=== PATIENT | female | born 1960 | race Caucasian/White ===

== ENCOUNTER 2021-05-07 19:40 | Inpatient (IN) | payer MEDICARE, MEDICAID ==
[~2021-05-07] VITALS: Ht 160 cm; Wt 92.0 kg
[2021-05-07] MEDS ORDERED: MAGNESIUM HYDROXIDE 2,400 MG/30 ML ORAL.SUSP. PO PRN (20:15)
[2021-05-07] MEDS ORDERED: MAG HYDROX/AL HYDROX/SIMETH 30 ML ORAL.SUSP PO PRN (20:15)
[2021-05-07] MEDS ORDERED: METHYL SALICYLATE/MENTHOL TOPICAL OINTMENT 57GM TUBE. TP PRN (20:15)
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
[2021-05-07 21:52] LABS: BASO % 1 % (0-3); EOS % 20 % (0-3); HEMATOCRIT 35.8 % (36.0-47.0); HEMOGLOBIN 11.4 g/dL (12.0-15.5); LYMPH # 0.8 x10^3/uL (1.0-4.8); LYMPH % 17 % (24-48); MEAN CORPUSCULAR HEMOGLOBIN 23 pg (25-35); MEAN CORPUSCULAR HGB CONC 32 g/dL (31-37); MEAN CORPUSCULAR VOLUME 72 fL (79-100); MONO # 0.2 x10^3/uL (0.0-1.1); MONO % 4 % (0-9); NEUT # 2.9 x10^3uL (1.8-7.7); NEUT % 59 % (31-73); PLATELET COUNT 277 x10^3/uL (140-400); RED BLOOD COUNT 4.98 x10^6/uL (3.50-5.40); RED CELL DISTRIBUTION WIDTH 21.7 % (11.5-14.5)
[2021-05-07 22:07] LABS: ALBUMIN 3.4 g/dL (3.4-5.0); ALBUMIN/GLOBULIN RATIO 0.9 (1.0-1.7); CALCIUM 8.3 mg/dL (8.5-10.1); CREATININE 0.7 mg/dL (0.6-1.0); GFR 85.4; MAGNESIUM 2.2 mg/dL (1.8-2.4); POTASSIUM 3.6 mmol/L (3.5-5.1); TOTAL BILIRUBIN 0.2 mg/dL (0.2-1.0); TOTAL PROTEIN 7.1 g/dL (6.4-8.2)
[2021-05-07] MEDS ORDERED: PANT20TA4 PO (22:22)
[2021-05-07] MEDS ORDERED: ZOLP5TAB5 PO (22:22)
[2021-05-07] MEDS ORDERED: TRAZ-125 PO (22:22)
[2021-05-07] MEDS ORDERED: MELO7.5T29 PO (22:22)
[2021-05-07] MEDS ORDERED: SERT100T PO (22:22)
[2021-05-07] MEDS ORDERED: ALEN70TA71 PO (22:22)
[2021-05-07] MEDS ORDERED: TIZA4TAB2 PO (22:22)
[2021-05-07] MEDS ORDERED: ALBU2.5V8 IH (22:22)
[2021-05-07] MEDS ORDERED: MILN50TA PO ×2 (22:22→22:51)
[2021-05-07] MEDS ORDERED: PRAV40TA2 PO (22:22)
[2021-05-07] MEDS ORDERED: ARIP2TAB35 PO (22:22)
[2021-05-07] MEDS ORDERED: GUAI118S36 PO (22:22)
[2021-05-07] MEDS ORDERED: PRAM1.5T7 PO (22:22)
[2021-05-07] MEDS ORDERED: AMLO-187 PO (22:22)
[2021-05-07 22:25] LABS: ANISOCYTOSIS SLIGHT; HYPOCHROMIA SLIGHT; MICROCYTOSIS MOD; OVALOCYTES FEW; PLT ESTIMATE ADEQUATE (ADEQUATE); POLYCHROMASIA SLIGHT
[2021-05-07 22:26] LABS: TEAR DROP CELLS OCC
[2021-05-07 22:32] VITALS: BP 130/76
[2021-05-07] MEDS ORDERED: [UNRECOGNIZED DRUG - OTHER] PO/SL (22:36)
[2021-05-07] MEDS ORDERED: MENT118G TP (22:36)
[2021-05-07] MEDS ORDERED: PEG15DRO4 EACHEYE (22:36)
[2021-05-07] MEDS ORDERED: SODI44SP14 NS (22:36)
[2021-05-07] MEDS ORDERED: MILN100T PO (22:51)
[2021-05-07] MEDS ORDERED: SULF1TAB24 PO (22:51)
[2021-05-07] MEDS ORDERED: guaiFENesin DM 200MG/20MG 10 ML SYRUP PO PRN (23:00)
[2021-05-07] MEDS ORDERED: MILNACIPRAN 50 MG TABLET PO SCH (23:00)
[2021-05-07] MEDS ORDERED: NON FORMULARY ITEM (Menthol (Biofreeze) 1 APP) TP PRN (23:00)
[2021-05-07] MEDS: amLODIPine BESYLATE 10 MG TABLET PO SCH (23:28)
[2021-05-07] MEDS: traZODone 100 MG TABLET. PO SCH (23:28)
[2021-05-07] MEDS: PRAMIPEXOLE 0.5 MG TABLET. PO SCH (23:28)
[2021-05-07] MEDS: ARIPiprazole 2 MG TABLET PO SCH (23:28)
[2021-05-07] MEDS: PANTOPRAZOLE 40 MG TABLET. PO SCH (23:28)
[2021-05-07] MEDS: tiZANidine 4 MG TABLET. PO PRN (23:28)
[2021-05-07] MEDS: ZOLPIDEM 5 MG TABLET. PO PRN (23:28)
[2021-05-07] MEDS: ATORVASTATIN CALCIUM 10 MG TABLET. PO SCH (23:32)
[2021-05-07] MEDS: MELOXICAM 7.5 MG TABLET PO SCH (23:32)
[2021-05-07 23:46] LABS: BILIRUBIN,URINE SMALL (NEG); CLARITY,URINE CLEAR; COLOR,URINE YELLOW; GLUCOSE,URINE NEG (NEG)
[2021-05-07 23:47] LABS: NITRITE,URINE NEG (NEG); UROBILINOGEN,URINE 0.2 mg/dL (0.2 mg/dL)
[2021-05-07 23:48] LABS: BACTERIA,URINE 0 /HPF (0-FEW); RBC,URINE 0 /HPF (0-2); SQUAMOUS EPITHELIAL CELL,UR OCC /LPF; WBC,URINE 0 /HPF (0-4)
--- NOTE | 2021-05-08 00:13 | HP ---
ADMIT DATE: 05/07/2021 PSYCHIATRIC ADMISSION HISTORY/EVALUATION IDENTIFYING DATA: The patient is a 60-year-old female referred to us from [facility]. She presented from home with worsening symptoms of depression, anxiety, failure of self-care. She has had poor intake. She has had active hallucinations about demons including auditory, tactile and possibly visual. She believes that demons are hurting her and she can feel it. She began sleeping in her car to get away from the demons in her apartment, but now they have come into the car. The patient has failed a recent inpatient psychiatric stabilization. Behaviors are deemed dangerous, unmanageable, and she has failed outpatient psychiatric and recent inpatient psychiatric and referred for inpatient psychiatric stabilization to us. The patient seen individually at length evening of 05/07/2021, discussed with nursing staff, reviewed the chart previously discussed with Ursula Quiros, banquet coordinator. CHIEF COMPLAINT: "The demons are poking me with pins. I have been staying in my thought, but they have come over there." The patient was evaluated at the [facility] by the [facility] staff and referred for inpatient psychiatric stabilization. HISTORY OF PRESENT ILLNESS: The patient relayed symptom of depression, feeling hopeless, helpless, worthless, increasingly affecting her overall functioning and self-care. She has had hallucinations as above and states the demons entered through an opening in her apartment and now through a similar opening in her car. She has had sleep and appetite changes. No active suicidal or homicidal ideation. She has got a history of mood swings, but no clear history of bipolar disorder. PAST PSYCHIATRIC HISTORY: As above. MEDICAL HISTORY: Positive for fibromyalgia, back pain, and GERD. DRUG ALLERGIES: Negative. CODE STATUS: Full code. DIET: Regular. Takes medications whole. Ambulates with walker. UA at [facility] on 05/06/2021 was negative. CURRENT PSYCHOTROPICS: Zoloft 150 mg a day, Ambien 5 mg at bedtime p.r.n., Abilify 2 mg a day, trazodone 100 mg at bedtime, Savella 75 mg twice a day, and Mirapex 1.5 mg daily. FAMILY HISTORY: Noncontributory. SOCIAL HISTORY: No alcohol, drug abuse, physical, sexual, or elder abuse history is noted. The patient is not known to be a perpetrator. REACTION TO HOSPITALIZATION: The patient is accepting of it. ASSETS: Stable living outpatient. REVIEW OF SYSTEMS: Positive for significant back pain and she has had multiple back surgeries, ambulation, impaired with walker. No CV, , pulmonary, eye, ENT system symptoms on review. MENTAL STATUS EXAM: The patient was seen individually, evening of 05/07/2021. The patient is oriented to herself and situation and oriented x4. Speech coherent, rapid at times. Abstraction fair. Computation impaired. Language function intact. Attention span short. Mood and affect depressed, anxious. She is quite paranoid, totally fixated on the above hallucinations with very limited insight into this. No active suicidal or homicidal ideation. Attention span is short. IMPRESSION: Major depressive disorder with psychotic features, psychotic disorder, unspecified; anxiety disorder, unspecified. Rest diagnoses as above. PLAN: Admit to geropsychiatry unit at [facility]. I will see the patient daily individually from a psychiatric standpoint, medical followup with Dr. Fuentes/Dr. Laureano. Continue patient on her current psychotropics. Obtain past psychiatric records, get a CT head if not done recently. Continue current psychotropics. Observe baseline, then adjust as clinically indicated. ESTIMATED LENGTH OF STAY: 10-12 days. DISPOSITION: Plans back home with outpatient followup post stabilization. SHARLA/SHAGGY DR: SHARLA/venita TID: [id number]
[2021-05-08 06:22] VITALS: BP 125/66
[2021-05-08] MEDS: PRAMIPEXOLE 0.5 MG TABLET. PO SCH ×3 (08:53→21:20)
[2021-05-08] MEDS: NICOTINE 21MG PATCH. TD SCH (09:00)
[2021-05-08] MEDS ORDERED: MILNACIPRAN 50 MG TABLET PO SCH (09:00)
[2021-05-08] MEDS ORDERED: SERTRALINE 100 MG TABLET. PO SCH (09:00)
--- NOTE | 2021-05-08 10:50 | NUR ---
Lissa has [facility] [place] insurance. Call placed to Kaila at [facility] to obtain authorization. Authorization number is [id number]. Lissa is covered thru 05/11/21 with next concurrent review due on 05/11/21 which can be completed by calling Amauri Arellano at [phone] ext [phone]. Call reference number for today's call is [id number].
--- NOTE | 2021-05-08 11:20 | NUR ---
Patient has been provided with Practical Counseling for tobacco cessation. It included a face to face interaction and the following was discussed: Recognizing danger situations, Developing coping skills,Basic cessation information. Will follow for discharge needs and discharge planning.
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
[2021-05-08 12:08] LABS: THYROXINE 5.8 ug/dL (4.5-12.0)
[2021-05-08] MEDS: MELOXICAM 7.5 MG TABLET PO SCH ×2 (12:17→21:21)
--- NOTE | 2021-05-08 13:21 | NUR ---
Pt A&Ox4, cooperative and pleasant in her interactions. She denies VH/AH/tactile hallucinations at this time, stating "ever since I got here I haven't had them." Earlier in the morning she did call her friend, Sandie, to request that she get in contact with a it quality assurance analyst in order to address the hallucinations/demons. She is compliant with whole medications. At this time she has no questions or complaints at this time. She stays primarily in her room but does come out when she has requests (such as to use the phone). Plan of care continues, will pass to next shift.
--- NOTE | 2021-05-08 15:03 | RAD ---
Exam Date: 05/08/2021 12:[address] HEAD/BRAIN WO Indication: Reason: Establish baseline, current hallucinations / Spl. Instructions: / History: . TECHNIQUE: Head CT was performed without intravenous contrast. One or more of the following dose re duction techniques were utilized: *Automated exposure control (AEC) *Adjustment of mA and/or kV according to patient size *Use of iterative reconstruction technique *CT scan done according to ALARA, or ALARA/IMAGE GENTLY FINDINGS: The ventricles and sulci are normal for the patient's stated age. There is no evidence of acute int racranial hemorrhage, extra-axial collection, mass effect, midline shift, or acute territorial infarc t. No lesion of the skull base or the calvarium is seen. The visualized paranasal sinuses, mastoid ai r cells and orbits are normal in appearance. IMPRESSION: No evidence for acute intracranial abnormality. Electronically signed by: Jose Hui MD (05/08/2021 3:01 PM) [id number]
[2021-05-08 16:00] VITALS: BP 132/81
[2021-05-08 16:45] LABS: THYROID STIM HORMONE (TSH) 1.264 uIU/mL (0.358-3.740)
[2021-05-08] MEDS ORDERED: ATORVASTATIN CALCIUM 10 MG TABLET. PO SCH (21:00)
[2021-05-08] MEDS: tiZANidine 4 MG TABLET. PO PRN (21:20)
[2021-05-08] MEDS: ZOLPIDEM 5 MG TABLET. PO PRN (21:20)
[2021-05-08] MEDS: ARIPiprazole 2 MG TABLET PO SCH (21:20)
[2021-05-08] MEDS: amLODIPine BESYLATE 10 MG TABLET PO SCH (21:20)
[2021-05-08] MEDS: ATORVASTATIN CALCIUM 10 MG TABLET. PO SCH (21:20)
[2021-05-08] MEDS: traZODone 100 MG TABLET. PO SCH (21:20)
[2021-05-08] MEDS: PANTOPRAZOLE 40 MG TABLET. PO SCH (21:20)
--- NOTE | 2021-05-08 22:04 | PDOC ---
Exam Note: Tomas Note: This is late entry for 05/07/2021. Please also refer to the separate dictated note~for this date of service dictated separately.~Patient seen individually. Discussed the patient with Nursing staff reviewed the chart.~Reviewed interim history and current functioning. Reviewed vital signs,~Labs/ Radiology~and curre nt medications noted below. Continue current treatment with the changes noted in the dictated addendum note Assessment: Vital Signs/I&O: Vital Signs Date Time Temp Pulse Resp B/P (MAP) Pulse Ox O2 Delivery O2 Flow Rate FiO2 05/08/21 21:20 97 132/81 05/08/21 16:00 96.4 18 94 Labs: Laboratory Tests Test 05/07/21 22:20 Urine Collection Type Unknown Urine Color Yellow Urine Clarity Clear Urine pH 6.0 Urine Specific [place] 1.025 Urine Protein Neg (NEG-TRACE) Urine Glucose (UA) Neg mg/dL (NEG) Urine Ketones (Stick) Trace mg/dL (NEG) Urine Blood Neg (NEG) Urine Nitrite Neg (NEG) Urine Bilirubin Small (NEG) Urine Urobilinogen Dipstick 0.2 mg/dL (0.2 mg/dL) Urine Leukocyte Esterase Neg (NEG) Urine RBC 0 /HPF (0-2) Urine WBC 0 /HPF (0-4) Urine Squamous Epithelial Cells Occ /LPF Urine Bacteria 0 /HPF (0-FEW) Current Medications: Meds: Current Medications Medications (Trade) Dose Ordered Sig/Noble Route PRN Reason Start Time Stop Time Status Last Admin Dose Admin Nicotine (Nicoderm Cq 21mg Patch) 1 patch DAILY TD 05/08/21 09:00 05/08/21 09:00 Milnacipran HCl (Savella) 50 mg HS PO 05/07/21 23:00 05/08/21 12:09 DC 05/07/21 23:00 Tizanidine HCl (Zanaflex) 4 mg PRN Q8HRS PRN PO MUSCLE SPASMS 05/07/21 23:00 05/08/21 21:20 Milnacipran HCl (Savella) 100 mg DAILY PO 05/08/21 09:00 05/08/21 12:09 DC 05/08/21 08:53 Pantoprazole Sodium (Protonix) 40 mg QHS PO 05/07/21 23:00 05/08/21 21:20 Sertraline HCl (Zoloft) 150 mg DAILY PO 05/08/21 09:00 05/08/21 12:09 DC 05/08/21 08:54 Trazodone HCl (Desyrel) 100 mg HS PO 05/07/21 23:00 05/08/21 21:20 Zolpidem Tartrate (Ambien) 5 mg PRN QHS PRN PO INSOMNIA 05/07/21 23:00 05/08/21 21:20 Pramipexole Dihydrochloride (miraPEX) 1.5 mg TID PO 05/07/21 23:00 05/08/21 21:20 Atorvastatin Calcium (Lipitor) 10 mg QHS PO 05/07/21 23:30 05/08/21 21:20 I have reviewed the current psychotropics carefully including drug interactions. Risk benefit ratio favors no change other than as noted in my dictated progress note. Diagnosis: Problems: (1) Major depressive disorder with psychotic features (2) Psychotic disorder (3) Anxiety disorder, unspecified TESS SPAIN MD May 08, 2021 22:04
--- NOTE | 2021-05-08 22:04 | PDOC ---
Exam Note: Tomas Note: Please also refer to the separate dictated note~for this date of service dictated separately.~Patient seen individually. Discussed the patient with Nursing staff reviewed the chart.~Reviewed interim history and current functioning. Reviewed vital signs,~Labs/ Radiology~and current medications noted below. Continue current treatment with the changes noted in the dictated addendum note Assessment: Vital Signs/I&O: Vital Signs Date Time Temp Pulse Resp B/P (MAP) Pulse Ox O2 Delivery O2 Flow Rate FiO2 05/08/21 21:20 97 132/81 05/08/21 16:00 96.4 18 94 Labs: Laboratory Tests Test 05/07/21 22:20 Urine Collection Type Unknown Urine Color Yellow Urine Clarity Clear Urine pH 6.0 Urine Specific [place] 1.025 Urine Protein Neg (NEG-TRACE) Urine Glucose (UA) Neg mg/dL (NEG) Urine Ketones (Stick) Trace mg/dL (NEG) Urine Blood Neg (NEG) Urine Nitrite Neg (NEG) Urine Bilirubin Small (NEG) Urine Urobilinogen Dipstick 0.2 mg/dL (0.2 mg/dL) Urine Leukocyte Esterase Neg (NEG) Urine RBC 0 /HPF (0-2) Urine WBC 0 /HPF (0-4) Urine Squamous Epithelial Cells Occ /LPF Urine Bacteria 0 /HPF (0-FEW) Current Medications: Meds: Current Medications Medications (Trade) Dose Ordered Sig/Noble Route PRN Reason Start Time Stop Time Status Last Admin Dose Admin Nicotine (Nicoderm Cq 21mg Patch) 1 patch DAILY TD 05/08/21 09:00 05/08/21 09:00 Milnacipran HCl (Savella) 50 mg HS PO 05/07/21 23:00 05/08/21 12:09 DC 05/07/21 23:00 Tizanidine HCl (Zanaflex) 4 mg PRN Q8HRS PRN PO MUSCLE SPASMS 05/07/21 23:00 05/08/21 21:20 Milnacipran HCl (Savella) 100 mg DAILY PO 05/08/21 09:00 05/08/21 12:09 DC 05/08/21 08:53 Pantoprazole Sodium (Protonix) 40 mg QHS PO 05/07/21 23:00 05/08/21 21:20 Sertraline HCl (Zoloft) 150 mg DAILY PO 05/08/21 09:00 05/08/21 12:09 DC 05/08/21 08:54 Trazodone HCl (Desyrel) 100 mg HS PO 05/07/21 23:00 05/08/21 21:20 Zolpidem Tartrate (Ambien) 5 mg PRN QHS PRN PO INSOMNIA 05/07/21 23:00 05/08/21 21:20 Pramipexole Dihydrochloride (miraPEX) 1.5 mg TID PO 05/07/21 23:00 05/08/21 21:20 Atorvastatin Calcium (Lipitor) 10 mg QHS PO 05/07/21 23:30 05/08/21 21:20 I have reviewed the current psychotropics carefully including drug interactions. Risk benefit ratio favors no change other than as noted in my dictated progress note. Diagnosis: Problems: (1) Psychotic disorder (2) Anxiety disorder, unspecified (3) Major depressive disorder with psychotic features TESS SPAIN MD May 08, 2021 22:04
[2021-05-08 23:07] LABS: HEMOGLOBIN A1C 6.5 % (4.8-5.6)
--- NOTE | 2021-05-08 23:25 | NUR ---
Pt sitting in day room, socializing with peers when approached. Pt calm, pleasant, talkative, and appropriate. Pt cooperative with assessment and compliant with medications administered whole. Pt denies all hallucinations and delusions at this time. Pt reports adverse reaction to Cymbalta in the past, Dr. Reinoso notified and new orders received.
[2021-05-09] MEDS: ALBUTEROL SULFATE 8GM INHALER. INH PRN (02:36)
[2021-05-09 05:46] VITALS: BP 150/82
[2021-05-09] MEDS: PRAMIPEXOLE 0.5 MG TABLET. PO SCH ×3 (08:31→20:19)
[2021-05-09] MEDS: NICOTINE 21MG PATCH. TD SCH (08:31)
[2021-05-09] MEDS ORDERED: DULoxetine HCL 30 MG CAPSULE.DR PO SCH (09:00)
[2021-05-09] MEDS: VENLAFAXINE XR 37.5 MG CAP.ER.24H. PO SCH (09:54)
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
[2021-05-09] MEDS: MELOXICAM 7.5 MG TABLET PO SCH (12:33)
[2021-05-09 16:18] VITALS: BP 107/74
[2021-05-09] MEDS: tiZANidine 4 MG TABLET. PO PRN ×2 (16:25→22:34)
[2021-05-09] MEDS ORDERED: CYANOCOBALAMIN (VITAMIN B-12) 1,000 MCG/ML VIAL. IM ONE (18:00)
[2021-05-09] MEDS: FERROUS SULFATE 325 MG TABLET. PO SCH (18:17)
[2021-05-09] MEDS: ASCORBIC ACID 500 MG TABLET PO SCH (18:17)
[2021-05-09] MEDS: ZOLPIDEM 5 MG TABLET. PO PRN (20:20)
[2021-05-09] MEDS: PANTOPRAZOLE 40 MG TABLET. PO SCH (20:20)
[2021-05-09] MEDS: risperiDONE 0.25 MG TABLET. PO SCH (20:20)
[2021-05-09] MEDS: traZODone 100 MG TABLET. PO SCH (20:20)
[2021-05-09] MEDS: amLODIPine BESYLATE 10 MG TABLET PO SCH (20:20)
[2021-05-09] MEDS: ATORVASTATIN CALCIUM 10 MG TABLET. PO SCH (20:20)
--- NOTE | 2021-05-09 22:04 | PDOC ---
Exam Note: Tomas Note: Please also refer to the separate dictated note~for this date of service dictated separately.~Patient seen individually. Discussed the patient with Nursing staff reviewed the chart.~Reviewed interim history and current functioning. Reviewed vital signs,~Labs/ Radiology~and current medications noted below. Continue current treatment with the changes noted in the dictated addendum note Assessment: Vital Signs/I&O: Vital Signs Date Time Temp Pulse Resp B/P (MAP) Pulse Ox O2 Delivery O2 Flow Rate FiO2 05/09/21 20:20 87 107/74 05/09/21 16:18 98.1 18 94 05/09/21 05:46 Room Air I & O 05/08/21 05/08/21 05/09/21 15:00 23:00 07:00 Intake Total 720 ml 360 ml 240 ml Balance 720 ml 360 ml 240 ml Current Medications: Meds: Current Medications Medications (Trade) Dose Ordered Sig/Noble Route PRN Reason Start Time Stop Time Status Last Admin Dose Admin Acetaminophen (Tylenol) 650 mg PRN Q6HRS PRN PO MILD PAIN / TEMP > 100.3'F 05/07/21 20:15 Multi-Ingredient Ointment (Analgesic [place]) 1 corey PRN QID PRN TP MUSCLE PAIN 05/07/21 20:15 Al Hydroxide/Mg Hydroxide (Mylanta Plus Xs) 15 ml PRN AFTMEALHC PRN PO DYSPEPSIA 05/07/21 20:15 Magnesium Hydroxide (Milk Of Magnesia) 2,400 mg PRN QHS PRN PO CONSTIPATION 05/07/21 20:15 Nicotine (Nicoderm Cq 21mg Patch) 1 patch DAILY TD 05/08/21 09:00 05/09/21 08:31 Amlodipine Besylate (Norvasc) 10 mg HS PO 05/07/21 22:00 05/09/21 20:20 Guaifenesin (Robitussin Dm) 10 ml PRN Q4HRS PRN PO COUGH 05/07/21 23:00 Meloxicam (Mobic) 7.5 mg 1200,2100 PO 05/07/21 22:00 05/09/21 17:45 DC 05/09/21 12:33 Milnacipran HCl (Savella) 50 mg HS PO 05/07/21 23:00 05/08/21 12:09 DC 05/07/21 23:00 Sodium Chloride (Saline Mist Nasal) 1 corey PRN BID PRN NS CONGESTION 05/07/21 23:00 Tizanidine HCl (Zanaflex) 4 mg PRN Q8HRS PRN PO MUSCLE SPASMS 05/07/21 23:00 05/09/21 16:25 Alendronate Sodium (Fosamax) 70 mg QSU PO 05/10/21 16:00 Non-Formulary Medication (Menthol (Biofreeze)) 1 corey QID PRN TP MUSCLE PAIN 05/07/21 23:00 05/07/21 23:16 DC Milnacipran HCl (Savella) 100 mg DAILY PO 05/08/21 09:00 05/08/21 12:09 DC 05/08/21 08:53 Pantoprazole Sodium (Protonix) 40 mg QHS PO 05/07/21 23:00 05/09/21 20:20 Artificial Tears (Refresh Classic) 1 drop PRN QID PRN OU DRY EYE 05/07/21 23:15 Atorvastatin Calcium (Lipitor) 10 mg QHS PO 05/08/21 21:00 05/07/21 23:19 DC Aripiprazole (Abilify) 2 mg HS PO 05/07/21 22:00 05/09/21 18:34 DC 05/08/21 21:20 Sertraline HCl (Zoloft) 150 mg DAILY PO 05/08/21 09:00 05/08/21 12:09 DC 05/08/21 08:54 Trazodone HCl (Desyrel) 100 mg HS PO 05/07/21 23:00 05/09/21 20:20 Zolpidem Tartrate (Ambien) 5 mg PRN QHS PRN PO INSOMNIA 05/07/21 23:00 05/09/21 20:20 Pramipexole Dihydrochloride (miraPEX) 1.5 mg TID PO 05/07/21 23:00 05/09/21 20:19 Albuterol Sulfate (Ventolin Hfa Inhaler) 1 puff PRN Q4HRS PRN INH SHORTNESS OF BREATH 05/07/21 23:00 05/09/21 02:36 Atorvastatin Calcium (Lipitor) 10 mg QHS PO 05/07/21 23:30 05/09/21 20:20 Duloxetine HCl (Cymbalta) 30 mg DAILY PO 05/09/21 09:00 05/08/21 21:40 DC Duloxetine HCl (Cymbalta) 60 mg DAILY PO 05/12/21 09:00 05/08/21 21:40 DC Venlafaxine HCl (Effexor Xr) 37.5 mg DAILY PO 05/09/21 09:00 05/09/21 09:54 Cyanocobalamin (Vitamin B-12) 1,000 mcg 1X ONCE IM 05/09/21 18:00 05/09/21 18:01 DC 05/09/21 18:17 Cyanocobalamin (Vitamin B-12) 1,000 mcg Q4WK IM 06/06/21 09:00 Ferrous Sulfate (Feosol) 325 mg BIDWMEALS PO 05/09/21 18:00 05/09/21 18:17 Ascorbic Acid (Vitamin C) 500 mg BIDWMEALS PO 05/09/21 18:00 05/09/21 18:17 Risperidone (RisperDAL) 0.5 mg QHS PO 05/09/21 21:00 05/09/21 20:20 Current Medications Medications (Trade) Dose Ordered Sig/Noble Route PRN Reason Start Time Stop Time Status Last Admin Dose Admin Venlafaxine HCl (Effexor Xr) 37.5 mg DAILY PO 05/09/21 09:00 05/09/21 09:54 Cyanocobalamin (Vitamin B-12) 1,000 mcg 1X ONCE IM 05/09/21 18:00 05/09/21 18:01 DC 05/09/21 18:17 Ferrous Sulfate (Feosol) 325 mg BIDWMEALS PO 05/09/21 18:00 05/09/21 18:17 Ascorbic Acid (Vitamin C) 500 mg BIDWMEALS PO 05/09/21 18:00 05/09/21 18:17 Risperidone (RisperDAL) 0.5 mg QHS PO 05/09/21 21:00 05/09/21 20:20 I have reviewed the current psychotropics carefully including drug interactions. Risk benefit ratio favors no change other than as noted in my dictated progress note. Diagnosis: Problems: (1) Psychotic disorder (2) Anxiety disorder, unspecified (3) Major depressive disorder with psychotic features TESS SPAIN MD May 09, 2021 22:04
[2021-05-09] MEDS: ACETAMINOPHEN 325 MG TABLET PO PRN (22:35)
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
--- NOTE | 2021-05-10 02:55 | CONS ---
DATE OF CONSULTATION: 05/09/2021 HISTORY OF PRESENT ILLNESS: The patient is a 61-year-old female patient who was [facility] from [facility] where she presented from home with worsening symptoms of depression, anxiety, failure self-care. She has had poor intake. She has active hallucination about demons including auditory, tactile and possible visual. She believes that the demons are hurting her and she can feel it. She began sleeping in her car to get away from the demons in her apartment, but now they have come into the car. The patient has failed a recent inpatient psychiatric stabilization. Her behavior seemed to be dangerous, unmanageable and she has failed outpatient psychiatric stabilization; therefore, she was admitted to this unit. PAST MEDICAL HISTORY: Medically, the patient has multiple medical problems including fibromyalgia, back pain, and gastroesophageal reflux disease. She has also osteoporosis, hyperlipidemia, restless leg syndrome. She has generalized osteoarthritis. PAST SURGICAL HISTORY: Unremarkable. ALLERGIES: SHE IS ALLERGIC TO DULOXETINE, GABAPENTIN, AND PREGABALIN. FAMILY HISTORY: Noncontributory. SOCIAL HISTORY: She lives alone. She does not smoke, drink alcohol, or use recreational drugs. MEDICATIONS: He is currently on the following medications: She is on sulfamethoxazole/trimethoprim for Bactrim-DS 1 tablet twice a day, albuterol sulfate 1 puff every 4 hours, tizanidine 4 mg every 8 hours, pravastatin 40 mg at bedtime, amlodipine 10 mg once a day, meloxicam 7.5 mg twice a day, sertraline 150 mg daily, trazodone 100 mg at bedtime, aripiprazole for Abilify 2 mg at bedtime, Ambien 5 mg at bedtime, Mirapex 1.5 mg 3 times a day. She is also on Savella 100 mg daily, and Tussin DM 10 mL every 4 hours. She is on artificial tears 1 drop to both eyes 4 times a day, sodium chloride nasal spray 2 sprays to each nostril twice a day, and Protonix 20 mg once a day. She is also on alendronate 70 mg once a week on Sundays. PHYSICAL EXAMINATION: GENERAL: When I examined her, she looked well and was clearly in no apparent respiratory distress. She was pale, not jaundiced, cyanosis. No lymphadenopathy, no thyromegaly, no jugular venous distention. No lower limb edema. VITAL SIGNS: Her heart rate was 87, blood pressure is 107/74, temperature was 98, respiratory rate was 18, and oxygen saturation was 94%. HEAD, EYES, EARS, NOSE, AND THROAT: Normocephalic, atraumatic. NECK: Supple. HEART: Normal first and second heart sounds. No gallop, rub or murmur. CHEST: Clear to auscultation. No crepitation or rhonchi. ABDOMEN: Distended, soft, nontender. NEUROLOGIC: She was grossly intact. LABORATORY DATA: Showed a white cell count 5000, hemoglobin 11.4, hematocrit 36, MCV 72, and platelet count 277,000 with normal manual differential. Her D-dimer was high at 1.88 mg per liter. Her chemistry showed her serum sodium was 141, potassium 3.6, chloride 105, bicarbonate 27, anion gap of 9, BUN 10, creatinine 0.7. Estimated GFR was 85 mL per minute. Her glucose was 85, calcium was 8.3, magnesium was 2.2. Total bilirubin, AST, ALT, alkaline phosphatase were normal. Total protein 7.1, albumin was 3.4. Her serum iron was low at 33, TIBC was high and iron saturation was low at 10. Her serum triglycerides was 99. Total cholesterol 154, LDL cholesterol was 85, VLDL was 19, HDL cholesterol of 50, and the ratio was 3. Her vitamin B12 was 226 and 25-hydroxy vitamin D was at 24, also low. Her TSH, total T4 and total T3 are all normal. Her urinalysis essentially unremarkable and her anti-Treponema pallidum antibodies are nonreactive. Her CT scan of the head showed ventricles and sulci are normal for the patient's stated age. There is no evidence of acute intracranial hemorrhage, extraaxial collection, mass effect, midline shift or acute territorial infarct. No lesion of the skull base or the calvarium is seen. The visualized paranasal sinuses, mastoid air cells, and orbits are normal in appearance. ASSESSMENT: In summary, this is a 61-year-old female patient who was admitted on account of increasing depression and anxiety, had also active hallucination about demons including auditory and possibly visual. She began sleeping in her car to get away from the demons in her apartment, but now they have come to car. Medically, the patient has multiple medical problems including fibromyalgia, osteoarthritis, osteoporosis, restless leg syndrome, gastroesophageal reflux disease, hypertension, and hyperlipidemia. She has also had lab work showed that she has iron deficiency anemia and vitamin B12 deficiency anemia. PLAN: My plan is to discontinue meloxicam, switch her to Tylenol Arthritis 1000 mg 3 times a day. We will start her on iron, vitamin C, as well as cyanocobalamin 1000 mcg per mL intramuscularly monthly. JAYLIN DR: Nida TID: [id number]
--- NOTE | 2021-05-10 05:04 | NUR ---
Pt has been up all shift, not sleeping, restless, and complaining of nerve pain. Pt reports that she needs her Savella, it's the only thing that helps with her Fibromyalgia pain. Pt educated that Dr. Reinoos discontinued her Savella and Zoloft because the two medications combined could cause hallucinations. Pt adamantly believes that her hallucinations started because she received the Covid-19 vaccine which caused a portal to open in her apartment bringing forth "the demons". Pt was advised that she would be put on the MD list for today to be seen regarding her pain and her request for better pain management. Pt offered several different non-pharmacological interventions but refused stating, "nothing else helps. I need my Savella". Pt finally accepted hot chocolate and a snack before lying down around 0415. Pt currently in her bed and appears to be sleeping.
[2021-05-10 05:36] VITALS: BP 144/83
[2021-05-10] MEDS: VENLAFAXINE XR 37.5 MG CAP.ER.24H. PO SCH (09:00)
[2021-05-10] MEDS: ASCORBIC ACID 500 MG TABLET PO SCH ×2 (09:00→17:30)
[2021-05-10] MEDS: PRAMIPEXOLE 0.5 MG TABLET. PO SCH ×3 (09:00→20:20)
[2021-05-10] MEDS: FERROUS SULFATE 325 MG TABLET. PO SCH ×2 (09:00→17:30)
--- NOTE | 2021-05-10 09:05 | PDOC ---
Exam Note: Tomas Note: This note is a late entry for 05/08/2021 covers elements not covered in my initial note. Subjective: The patient was seen individually in the morning of 05/08/2021 for a treatment team meeting with Ursula Novoa, Talia Garcia (social welfare research worker) and Crissy MAY, discussed and reviewed the chart. Discussed her progress, current psychotropics, reviewed drug interactions, risk-benefit ratio. The patient slept 3-1/2 hours previous night. She remains somewhat withdrawn, depressed. Reportedly the patient has voiced ongoing auditory, visual, and tactile hallucinations. We reviewed history services through the [facility]. CT head completed on 05/08 is unremarkable. Review of Systems: Impaired ambulation. No CV, , pulmonary, eye, ENT system symptoms on review. Gait unsteady. Mental Status Exam: The patient is awake, alert and oriented. Speech is coherent, little pressured at times. Abstraction fair. Computation impaired. Language function intact. Attention span short, somewhat distractible. Denies active suicidal ideation or hallucinations. Laboratory Data: Reviewed. Impression: Major depressive disorder with psychotic features. Psychotic disorder unspecified. Anxiety disorder unspecified. Plan: The patient is on a combination of Zoloft 150 mg a day, Savella 50 mg 1-1/2 tablet twice a day. The combination could be worsening some of her perceived hallucinations and we will stop this and initially thought about changing into Cymbalta but she stated she was unable to tolerate Cymbalta in the past. We will start Effexor XR 37.5 mg a day. Maintain Abilify 2 mg a day but we may need to increase this or change it to Risperdal as an antipsychotic depe nding on her symptoms. We will make further adjustments as clinically indicated. Assessment: Vital Signs/I&O: Vital Signs Date Time Temp Pulse Resp B/P (MAP) Pulse Ox O2 Delivery O2 Flow Rate FiO2 05/10/21 05:36 96.9 82 14 144/83 (103) 94 05/09/21 05:46 Room Air I & O 05/09/21 05/09/21 05/10/21 14:59 22:59 06:59 Intake Total 840 ml 240 ml Balance 840 ml 240 ml Current Medications: Meds: Current Medications Medications (Trade) Dose Ordered Sig/Noble Route PRN Reason Start Time Stop Time Status Last Admin Dose Admin Acetaminophen (Tylenol) 650 mg PRN Q6HRS PRN PO MILD PAIN / TEMP > 100.3'F 05/07/21 20:15 05/09/21 22:35 Multi-Ingredient Ointment (Analgesic [place]) 1 corey PRN QID PRN TP MUSCLE PAIN 05/07/21 20:15 05/09/21 22:35 Al Hydroxide/Mg Hydroxide (Mylanta Plus Xs) 15 ml PRN AFTMEALHC PRN PO DYSPEPSIA 05/07/21 20:15 Magnesium Hydroxide (Milk Of Magnesia) 2,400 mg PRN QHS PRN PO CONSTIPATION 05/07/21 20:15 Nicotine (Nicoderm Cq 21mg Patch) 1 patch DAILY TD 05/08/21 09:00 05/09/21 08:31 Amlodipine Besylate (Norvasc) 10 mg HS PO 05/07/21 22:00 05/09/21 20:20 Guaifenesin (Robitussin Dm) 10 ml PRN Q4HRS PRN PO COUGH 05/07/21 23:00 Meloxicam (Mobic) 7.5 mg 1200,2100 PO 05/07/21 22:00 05/09/21 17:45 DC 05/09/21 12:33 Milnacipran HCl (Savella) 50 mg HS PO 05/07/21 23:00 05/08/21 12:09 DC 05/07/21 23:00 Sodium Chloride (Saline Mist Nasal) 1 corey PRN BID PRN NS CONGESTION 05/07/21 23:00 Tizanidine HCl (Zanaflex) 4 mg PRN Q8HRS PRN PO MUSCLE SPASMS 05/07/21 23:00 05/09/21 22:34 Alendronate Sodium (Fosamax) 70 mg QSU PO 05/10/21 16:00 Non-Formulary Medication (Menthol (Biofreeze)) 1 corey QID PRN TP MUSCLE PAIN 05/07/21 23:00 05/07/21 23:16 DC Milnacipran HCl (Savella) 100 mg DAILY PO 05/08/21 09:00 05/08/21 12:09 DC 05/08/21 08:53 Pantoprazole Sodium (Protonix) 40 mg QHS PO 05/07/21 23:00 05/09/21 20:20 Artificial Tears (Refresh Classic) 1 drop PRN QID PRN OU DRY EYE 05/07/21 23:15 Atorvastatin Calcium (Lipitor) 10 mg QHS PO 05/08/21 21:00 05/07/21 23:19 DC Aripiprazole (Abilify) 2 mg HS PO 05/07/21 22:00 05/09/21 18:34 DC 05/08/21 21:20 Sertraline HCl (Zoloft) 150 mg DAILY PO 05/08/21 09:00 05/08/21 12:09 DC 05/08/21 08:54 Trazodone HCl (Desyrel) 100 mg HS PO 05/07/21 23:00 05/09/21 20:20 Zolpidem Tartrate (Ambien) 5 mg PRN QHS PRN PO INSOMNIA 05/07/21 23:00 05/09/21 20:20 Pramipexole Dihydrochloride (miraPEX) 1.5 mg TID PO 05/07/21 23:00 05/10/21 09:00 Albuterol Sulfate (Ventolin Hfa Inhaler) 1 puff PRN Q4HRS PRN INH SHORTNESS OF BREATH 05/07/21 23:00 05/09/21 02:36 Atorvastatin Calcium (Lipitor) 10 mg QHS PO 05/07/21 23:30 05/09/21 20:20 Duloxetine HCl (Cymbalta) 30 mg DAILY PO 05/09/21 09:00 05/08/21 21:40 DC Duloxetine HCl (Cymbalta) 60 mg DAILY PO 05/12/21 09:00 05/08/21 21:40 DC Venlafaxine HCl (Effexor Xr) 37.5 mg DAILY PO 05/09/21 09:00 05/10/21 09:00 Cyanocobalamin (Vitamin B-12) 1,000 mcg 1X ONCE IM 05/09/21 18:00 05/09/21 18:01 DC 05/09/21 18:17 Cyanocobalamin (Vitamin B-12) 1,000 mcg Q4WK IM 06/06/21 09:00 Ferrous Sulfate (Feosol) 325 mg BIDWMEALS PO 05/09/21 18:00 05/10/21 09:00 Ascorbic Acid (Vitamin C) 500 mg BIDWMEALS PO 05/09/21 18:00 05/10/21 09:00 Risperidone (RisperDAL) 0.5 mg QHS PO 05/09/21 21:00 05/09/21 20:20 Current Medications Medications (Trade) Dose Ordered Sig/Noble Route PRN Reason Start Time Stop Time Status Last Admin Dose Admin Cyanocobalamin (Vitamin B-12) 1,000 mcg 1X ONCE IM 05/09/21 18:00 05/09/21 18:01 DC 05/09/21 18:17 Ferrous Sulfate (Feosol) 325 mg BIDWMEALS PO 05/09/21 18:00 05/10/21 09:00 Ascorbic Acid (Vitamin C) 500 mg BIDWMEALS PO 05/09/21 18:00 05/10/21 09:00 Risperidone (RisperDAL) 0.5 mg QHS PO 05/09/21 21:00 05/09/21 20:20 I have reviewed the current psychotropics carefully including drug interactions. Risk benefit ratio favors no change other than as noted in my dictated progress note. Diagnosis: Problems: (1) Psychotic disorder (2) Anxiety disorder, unspecified (3) Major depressive disorder with psychotic features TESS SPAIN MD May 10, 2021 09:05
[2021-05-10] MEDS: NICOTINE 21MG PATCH. TD SCH (10:25)
[2021-05-10] MEDS: ALENDRONATE SODIUM 35 MG TABLET PO SCH (15:39)
[2021-05-10 16:08] VITALS: BP 135/80
--- NOTE | 2021-05-10 16:38 | NUR ---
Nursing note: Patient in dinning room for morning medications and assessment, medications taken whole. She is A&Ox4, cooperative and pleasant in her interactions. She denies VH/AH/tactile hallucinations at this time, stating "ever since I got here I haven't had them." Patient reported she only has her hallucinations at her apartment or in her car. She stated they are not hallucinations they are real. She voiced she needs to get an exorcist for her apartment, car, & herself. She selectively interacts with peers. She is currently sitting outside. Plan of care continues, will continue to monitor.
[2021-05-10] MEDS ORDERED: traZODone 100 MG TABLET. PO PRN (17:15)
[2021-05-10] MEDS ORDERED: PHENYLEPH/MINERAL OIL/PETROLAT RECTAL OINTMENT TUBE. RC PRN (20:00)
[2021-05-10] MEDS: traZODone 100 MG TABLET. PO SCH (20:19)
[2021-05-10] MEDS: ATORVASTATIN CALCIUM 10 MG TABLET. PO SCH (20:20)
[2021-05-10] MEDS: MIRTAZAPINE 7.5 MG TABLET. PO SCH (20:20)
[2021-05-10] MEDS: PANTOPRAZOLE 40 MG TABLET. PO SCH (20:20)
[2021-05-10] MEDS: risperiDONE 0.25 MG TABLET. PO SCH (20:21)
[2021-05-10] MEDS: amLODIPine BESYLATE 10 MG TABLET PO SCH (20:21)
[2021-05-10] MEDS: oxyCODONE IR 5 MG TABLET PO PRN (21:00)
--- NOTE | 2021-05-10 22:00 | PDOC ---
Exam Note: Tomas Note: Please also refer to the separate dictated note~for this date of service dictated separately.~Patient seen individually. Discussed the patient with Nursing staff reviewed the chart.~Reviewed interim history and current functioning. Reviewed vital signs,~Labs/ Radiology~and current medications noted below. Continue current treatment with the changes noted in the dictated addendum note Assessment: Vital Signs/I&O: Vital Signs Date Time Temp Pulse Resp B/P (MAP) Pulse Ox O2 Delivery O2 Flow Rate FiO2 05/10/21 21:00 94 05/10/21 20:21 88 135/80 05/10/21 16:08 97.8 20 Room Air I & O 05/09/21 05/09/21 05/10/21 15:00 23:00 07:00 Intake Total 840 ml 240 ml Balance 840 ml 240 ml Current Medications: Meds: Current Medications Medications (Trade) Dose Ordered Sig/Noble Route PRN Reason Start Time Stop Time Status Last Admin Dose Admin Acetaminophen (Tylenol) 650 mg PRN Q6HRS PRN PO MILD PAIN / TEMP > 100.3'F 05/07/21 20:15 05/09/21 22:35 Multi-Ingredient Ointment (Analgesic [place]) 1 corey PRN QID PRN TP MUSCLE PAIN 05/07/21 20:15 05/09/21 22:35 Al Hydroxide/Mg Hydroxide (Mylanta Plus Xs) 15 ml PRN AFTMEALHC PRN PO DYSPEPSIA 05/07/21 20:15 Magnesium Hydroxide (Milk Of Magnesia) 2,400 mg PRN QHS PRN PO CONSTIPATION 05/07/21 20:15 Nicotine (Nicoderm Cq 21mg Patch) 1 patch DAILY TD 05/08/21 09:00 05/10/21 10:25 Amlodipine Besylate (Norvasc) 10 mg HS PO 05/07/21 22:00 05/10/21 20:21 Guaifenesin (Robitussin Dm) 10 ml PRN Q4HRS PRN PO COUGH 05/07/21 23:00 Meloxicam (Mobic) 7.5 mg 1200,2100 PO 05/07/21 22:00 05/09/21 17:45 DC 05/09/21 12:33 Milnacipran HCl (Savella) 50 mg HS PO 05/07/21 23:00 05/08/21 12:09 DC 05/07/21 23:00 Sodium Chloride (Saline Mist Nasal) 1 corey PRN BID PRN NS CONGESTION 05/07/21 23:00 Tizanidine HCl (Zanaflex) 4 mg PRN Q8HRS PRN PO MUSCLE SPASMS 05/07/21 23:00 05/09/21 22:34 Alendronate Sodium (Fosamax) 70 mg QSU PO 05/10/21 16:00 05/10/21 15:39 Non-Formulary Medication (Menthol (Biofreeze)) 1 corey QID PRN TP MUSCLE PAIN 05/07/21 23:00 05/07/21 23:16 DC Milnacipran HCl (Savella) 100 mg DAILY PO 05/08/21 09:00 05/08/21 12:09 DC 05/08/21 08:53 Pantoprazole Sodium (Protonix) 40 mg QHS PO 05/07/21 23:00 05/10/21 20:20 Artificial Tears (Refresh Classic) 1 drop PRN QID PRN OU DRY EYE 05/07/21 23:15 Atorvastatin Calcium (Lipitor) 10 mg QHS PO 05/08/21 21:00 05/07/21 23:19 DC Aripiprazole (Abilify) 2 mg HS PO 05/07/21 22:00 05/09/21 18:34 DC 05/08/21 21:20 Sertraline HCl (Zoloft) 150 mg DAILY PO 05/08/21 09:00 05/08/21 12:09 DC 05/08/21 08:54 Trazodone HCl (Desyrel) 100 mg HS PO 05/07/21 23:00 05/10/21 20:19 Zolpidem Tartrate (Ambien) 5 mg PRN QHS PRN PO INSOMNIA 05/07/21 23:00 05/09/21 20:20 Pramipexole Dihydrochloride (miraPEX) 1.5 mg TID PO 05/07/21 23:00 05/10/21 20:20 Albuterol Sulfate (Ventolin Hfa Inhaler) 1 puff PRN Q4HRS PRN INH SHORTNESS OF BREATH 05/07/21 23:00 05/09/21 02:36 Atorvastatin Calcium (Lipitor) 10 mg QHS PO 05/07/21 23:30 05/10/21 20:20 Duloxetine HCl (Cymbalta) 30 mg DAILY PO 05/09/21 09:00 05/08/21 21:40 DC Duloxetine HCl (Cymbalta) 60 mg DAILY PO 05/12/21 09:00 05/08/21 21:40 DC Venlafaxine HCl (Effexor Xr) 37.5 mg DAILY PO 05/09/21 09:00 05/10/21 09:00 Cyanocobalamin (Vitamin B-12) 1,000 mcg 1X ONCE IM 05/09/21 18:00 05/09/21 18:01 DC 05/09/21 18:17 Cyanocobalamin (Vitamin B-12) 1,000 mcg Q4WK IM 06/06/21 09:00 Ferrous Sulfate (Feosol) 325 mg BIDWMEALS PO 05/09/21 18:00 05/10/21 17:30 Ascorbic Acid (Vitamin C) 500 mg BIDWMEALS PO 05/09/21 18:00 05/10/21 17:30 Risperidone (RisperDAL) 0.5 mg QHS PO 05/09/21 21:00 05/10/21 20:21 Mirtazapine (Remeron) 7.5 mg QHS PO 05/10/21 21:00 05/10/21 20:20 Trazodone HCl (Desyrel) 100 mg PRN QHS PRN PO INSOMNIA 05/10/21 17:15 Oxycodone HCl (Roxicodone) 5 mg PRN Q8HRS PRN PO PAIN 05/10/21 20:00 05/10/21 21:00 Phenyleph/Shark Oil/Min Oil/Petrol (Preparation H) 1 corey PRN QID PRN RC RECTAL PAIN 05/10/21 20:00 Current Medications Medications (Trade) Dose Ordered Sig/Noble Route PRN Reason Start Time Stop Time Status Last Admin Dose Admin Alendronate Sodium (Fosamax) 70 mg QSU PO 05/10/21 16:00 05/10/21 15:39 Mirtazapine (Remeron) 7.5 mg QHS PO 05/10/21 21:00 05/10/21 20:20 Oxycodone HCl (Roxicodone) 5 mg PRN Q8HRS PRN PO PAIN 05/10/21 20:00 05/10/21 21:00 I have reviewed the current psychotropics carefully including drug interactions. Risk benefit ratio favors no change other than as noted in my dictated progress note. Diagnosis: Problems: (1) Psychotic disorder (2) Anxiety disorder, unspecified (3) Major depressive disorder with psychotic features TESS SPAIN MD May 10, 2021 22:00
--- NOTE | 2021-05-10 22:48 | NUR ---
Patient is located in the day room on assumption of care, socializing with peers and watching a movie. She is in pleasant spirits, interactive and appropriate. She denies any hallucinations so far this shift. Denies SI/HI. She has voiced no delusions. Complained of restless legs/sciatica pain of 10/10 and requested a PRN. Oxycodone 5mg given to patient at 2100, with good effect. She appears to be sleeping comfortably at present time. Will continue to monitor.
[2021-05-11 05:41] VITALS: BP 129/77
[2021-05-11] MEDS: PRAMIPEXOLE 0.5 MG TABLET. PO SCH ×3 (08:41→20:41)
[2021-05-11] MEDS: VENLAFAXINE XR 37.5 MG CAP.ER.24H. PO SCH (08:41)
[2021-05-11] MEDS: ASCORBIC ACID 500 MG TABLET PO SCH ×2 (08:41→17:22)
[2021-05-11] MEDS: NICOTINE 21MG PATCH. TD SCH (08:41)
[2021-05-11] MEDS: FERROUS SULFATE 325 MG TABLET. PO SCH ×2 (08:41→17:22)
--- NOTE | 2021-05-11 09:12 | PDOC ---
Exam Note: Tomas Note: This note is a late entry for 05/09/2021 covers elements not covered in my initial note. Subjective: The patient was seen individually in the evening of 05/09/2021 with Tenzin MAY, discussed and reviewed the chart. The patient slept 4-3/4 hours previous night. I met with the patient at some length in her room. She is very verbal, talked about the portals not being a problem here but believed she will be a problem once she is back home and in her car. She was unable to tolerate Cymbalta in the past and we have changed it to Effexor XR 37.5 mg a day. Review of Systems: Positive for restless legs. Ambulation impaired with walker. No CV, , pulmonary, eye, ENT system symptoms on review. She does complain of chronic pain and restlessness and pain worsens. Savella was stopped. Mental Status Exam: The patient is reasonably oriented. Speech is hyperverbal. Abstraction fair. Computation impaired. Language function intact. Attention span short. Mood and affect quite animated. No suicidal or homicidal. No active hallucinations. Laboratory Data: Reviewed. Impression: Major depressive disorder with psychotic features. Psychotic disorder unspecified. Anxiety disorder unspecified. Plan: Change Abilify to Risperdal to 0.5 mg h.s. as an antipsychotic. Maintain Effexor 37.5 mg a day. Assessment: Vital Signs/I&O: Vital Signs Date Time Temp Pulse Resp B/P (MAP) Pulse Ox O2 Delivery O2 Flow Rate FiO2 05/11/21 05:41 97.3 95 18 129/77 (94) 93 05/10/21 16:08 Room Air I & O 05/10/21 05/10/21 05/11/21 15:00 23:00 07:00 Intake Total 600 ml 480 ml 120 ml Balance 600 ml 480 ml 120 ml Current Medications: Meds: Current Medications Medications (Trade) Dose Ordered Sig/Noble Route PRN Reason Start Time Stop Time Status Last Admin Dose Admin Acetaminophen (Tylenol) 650 mg PRN Q6HRS PRN PO MILD PAIN / TEMP > 100.3'F 05/07/21 20:15 05/09/21 22:35 Multi-Ingredient Ointment (Analgesic [place]) 1 corey PRN QID PRN TP MUSCLE PAIN 05/07/21 20:15 7/17/21 22:35 Al Hydroxide/Mg Hydroxide (Mylanta Plus Xs) 15 ml PRN AFTMEALHC PRN PO DYSPEPSIA 05/07/21 20:15 Magnesium Hydroxide (Milk Of Magnesia) 2,400 mg PRN QHS PRN PO CONSTIPATION 05/07/21 20:15 Nicotine (Nicoderm Cq 21mg Patch) 1 patch DAILY TD 05/08/21 09:00 05/11/21 08:41 Amlodipine Besylate (Norvasc) 10 mg HS PO 05/07/21 22:00 05/10/21 20:21 Guaifenesin (Robitussin Dm) 10 ml PRN Q4HRS PRN PO COUGH 05/07/21 23:00 Meloxicam (Mobic) 7.5 mg 1200,2100 PO 05/07/21 22:00 05/09/21 17:45 DC 05/09/21 12:33 Milnacipran HCl (Savella) 50 mg HS PO 05/07/21 23:00 05/08/21 12:09 DC 05/07/21 23:00 Sodium Chloride (Saline Mist Nasal) 1 corey PRN BID PRN NS CONGESTION 05/07/21 23:00 Tizanidine HCl (Zanaflex) 4 mg PRN Q8HRS PRN PO MUSCLE SPASMS 05/07/21 23:00 05/09/21 22:34 Alendronate Sodium (Fosamax) 70 mg QSU PO 05/10/21 16:00 05/10/21 15:39 Non-Formulary Medication (Menthol (Biofreeze)) 1 corey QID PRN TP MUSCLE PAIN 05/07/21 23:00 05/07/21 23:16 DC Milnacipran HCl (Savella) 100 mg DAILY PO 05/08/21 09:00 05/08/21 12:09 DC 05/08/21 08:53 Pantoprazole Sodium (Protonix) 40 mg QHS PO 05/07/21 23:00 05/10/21 20:20 Artificial Tears (Refresh Classic) 1 drop PRN QID PRN OU DRY EYE 05/07/21 23:15 Atorvastatin Calcium (Lipitor) 10 mg QHS PO 05/08/21 21:00 05/07/21 23:19 DC Aripiprazole (Abilify) 2 mg HS PO 05/07/21 22:00 05/09/21 18:34 DC 05/08/21 21:20 Sertraline HCl (Zoloft) 150 mg DAILY PO 05/08/21 09:00 05/08/21 12:09 DC 05/08/21 08:54 Trazodone HCl (Desyrel) 100 mg HS PO 05/07/21 23:00 05/10/21 20:19 Zolpidem Tartrate (Ambien) 5 mg PRN QHS PRN PO 2ND CHOICE INSOMNIA 05/07/21 23:00 05/09/21 20:20 Pramipexole Dihydrochloride (miraPEX) 1.5 mg TID PO 05/07/21 23:00 05/11/21 08:41 Albuterol Sulfate (Ventolin Hfa Inhaler) 1 puff PRN Q4HRS PRN INH SHORTNESS OF BREATH 05/07/21 23:00 05/09/21 02:36 Atorvastatin Calcium (Lipitor) 10 mg QHS PO 05/07/21 23:30 05/10/21 20:20 Duloxetine HCl (Cymbalta) 30 mg DAILY PO 05/09/21 09:00 05/08/21 21:40 DC Duloxetine HCl (Cymbalta) 60 mg DAILY PO 05/12/21 09:00 05/08/21 21:40 DC Venlafaxine HCl (Effexor Xr) 37.5 mg DAILY PO 05/09/21 09:00 05/11/21 08:41 Cyanocobalamin (Vitamin B-12) 1,000 mcg 1X ONCE IM 05/09/21 18:00 05/09/21 18:01 DC 05/09/21 18:17 Cyanocobalamin (Vitamin B-12) 1,000 mcg Q4WK IM 06/06/21 09:00 Ferrous Sulfate (Feosol) 325 mg BIDWMEALS PO 05/09/21 18:00 05/11/21 08:41 Ascorbic Acid (Vitamin C) 500 mg BIDWMEALS PO 05/09/21 18:00 05/11/21 08:41 Risperidone (RisperDAL) 0.5 mg QHS PO 05/09/21 21:00 05/10/21 20:21 Mirtazapine (Remeron) 7.5 mg QHS PO 05/10/21 21:00 05/10/21 20:20 Trazodone HCl (Desyrel) 100 mg PRN QHS PRN PO 1ST CHOICE INSOMNIA 05/10/21 17:15 Oxycodone HCl (Roxicodone) 5 mg PRN Q8HRS PRN PO PAIN 05/10/21 20:00 05/10/21 21:00 Phenyleph/Shark Oil/Min Oil/Petrol (Preparation H) 1 corey PRN QID PRN RC RECTAL PAIN 05/10/21 20:00 Current Medications Medications (Trade) Dose Ordered Sig/Noble Route PRN Reason Start Time Stop Time Status Last Admin Dose Admin Alendronate Sodium (Fosamax) 70 mg QSU PO 05/10/21 16:00 05/10/21 15:39 Mirtazapine (Remeron) 7.5 mg QHS PO 05/10/21 21:00 05/10/21 20:20 Oxycodone HCl (Roxicodone) 5 mg PRN Q8HRS PRN PO PAIN 05/10/21 20:00 05/10/21 21:00 I have reviewed the current psychotropics carefully including drug interactions. Risk benefit ratio favors no change other than as noted in my dictated progress note. Diagnosis: Problems: (1) Psychotic disorder (2) Anxiety disorder, unspecified (3) Major depressive disorder with psychotic features TESS SPAIN MD May 11, 2021 09:12
--- NOTE | 2021-05-11 09:39 | PDOC ---
Exam Note: Tomas Note: This note is a late entry for 05/10/2021 covers elements not covered in my initial note. Subjective: patient was seen individually in the evening of 05/10/2021 with Neelam MAY, discussed and reviewed the chart. The patient slept just hours previous night due to pain and symptoms of fibromyalgia. No hallucinations or delusions about the portals. Review of Systems: No CV, , pulmonary, eye, ENT system symptoms on review. She does complain of chronic pain and restlessness and pain worsens. Mental Status Exam: The patient is reasonably oriented. Speech is hyperverbal. Abstraction fair. Computation impaired. Language function intact. Attention span short. Mood and affect quite animated. No suicidal or homicidal. No active hallucinations. Laboratory Data: Reviewed. Impression: Major depressive disorder with psychotic features. Psychotic disorder unspecified. Anxiety disorder unspecified. Plan: Given her ongoing significant insomnia, we will add trazodone 100 mg h.s. p.r.n. insomnia in addition to the scheduled 100 mg dosage. We will also add Re joel 7.5 mg h.s. Rest unchanged for now. Assessment: Vital Signs/I&O: Vital Signs Date Time Temp Pulse Resp B/P (MAP) Pulse Ox O2 Delivery O2 Flow Rate FiO2 05/11/21 05:41 97.3 95 18 129/77 (94) 93 05/10/21 16:08 Room Air I & O 05/10/21 05/10/21 05/11/21 15:00 23:00 07:00 Intake Total 600 ml 480 ml 120 ml Balance 600 ml 480 ml 120 ml Current Medications: Meds: Current Medications Medications (Trade) Dose Ordered Sig/Noble Route PRN Reason Start Time Stop Time Status Last Admin Dose Admin Acetaminophen (Tylenol) 650 mg PRN Q6HRS PRN PO MILD PAIN / TEMP > 100.3'F 05/07/21 20:15 05/09/21 22:35 Multi-Ingredient Ointment (Analgesic [place]) 1 corey PRN QID PRN TP MUSCLE PAIN 05/07/21 20:15 05/09/21 22:35 Al Hydroxide/Mg Hydroxide (Mylanta Plus Xs) 15 ml PRN AFTMEALHC PRN PO DYSPEPSIA 05/07/21 20:15 Magnesium Hydroxide (Milk Of Magnesia) 2,400 mg PRN QHS PRN PO CONSTIPATION 05/07/21 20:15 Nicotine (Nicoderm Cq 21mg Patch) 1 patch DAILY TD 05/08/21 09:00 05/11/21 08:41 Amlodipine Besylate (Norvasc) 10 mg HS PO 05/07/21 22:00 05/10/21 20:21 Guaifenesin (Robitussin Dm) 10 ml PRN Q4HRS PRN PO COUGH 05/07/21 23:00 Meloxicam (Mobic) 7.5 mg 1200,2100 PO 05/07/21 22:00 05/09/21 17:45 DC 05/09/21 12:33 Milnacipran HCl (Savella) 50 mg HS PO 05/07/21 23:00 05/08/21 12:09 DC 05/07/21 23:00 Sodium Chloride (Saline Mist Nasal) 1 corey PRN BID PRN NS CONGESTION 05/07/21 23:00 Tizanidine HCl (Zanaflex) 4 mg PRN Q8HRS PRN PO MUSCLE SPASMS 05/07/21 23:00 05/09/21 22:34 Alendronate Sodium (Fosamax) 70 mg QSU PO 05/10/21 16:00 05/10/21 15:39 Non-Formulary Medication (Menthol (Biofreeze)) 1 corey QID PRN TP MUSCLE PAIN 05/07/21 23:00 05/07/21 23:16 DC Milnacipran HCl (Savella) 100 mg DAILY PO 05/08/21 09:00 05/08/21 12:09 DC 05/08/21 08:53 Pantoprazole Sodium (Protonix) 40 mg QHS PO 05/07/21 23:00 05/10/21 20:20 Artificial Tears (Refresh Classic) 1 drop PRN QID PRN OU DRY EYE 05/07/21 23:15 Atorvastatin Calcium (Lipitor) 10 mg QHS PO 05/08/21 21:00 05/07/21 23:19 DC Aripiprazole (Abilify) 2 mg HS PO 05/07/21 22:00 05/09/21 18:34 DC 05/08/21 21:20 Sertraline HCl (Zoloft) 150 mg DAILY PO 05/08/21 09:00 05/08/21 12:09 DC 05/08/21 08:54 Trazodone HCl (Desyrel) 100 mg HS PO 05/07/21 23:00 05/10/21 20:19 Zolpidem Tartrate (Ambien) 5 mg PRN QHS PRN PO 2ND CHOICE INSOMNIA 05/07/21 23:00 05/09/21 20:20 Pramipexole Dihydrochloride (miraPEX) 1.5 mg TID PO 05/07/21 23:00 05/11/21 08:41 Albuterol Sulfate (Ventolin Hfa Inhaler) 1 puff PRN Q4HRS PRN INH SHORTNESS OF BREATH 05/07/21 23:00 05/09/21 02:36 Atorvastatin Calcium (Lipitor) 10 mg QHS PO 05/07/21 23:30 05/10/21 20:20 Duloxetine HCl (Cymbalta) 30 mg DAILY PO 05/09/21 09:00 05/08/21 21:40 DC Duloxetine HCl (Cymbalta) 60 mg DAILY PO 05/12/21 09:00 05/08/21 21:40 DC Venlafaxine HCl (Effexor Xr) 37.5 mg DAILY PO 05/09/21 09:00 05/11/21 08:41 Cyanocobalamin (Vitamin B-12) 1,000 mcg 1X ONCE IM 05/09/21 18:00 05/09/21 18:01 DC 05/09/21 18:17 Cyanocobalamin (Vitamin B-12) 1,000 mcg Q4WK IM 06/06/21 09:00 Ferrous Sulfate (Feosol) 325 mg BIDWMEALS PO 05/09/21 18:00 05/11/21 08:41 Ascorbic Acid (Vitamin C) 500 mg BIDWMEALS PO 05/09/21 18:00 05/11/21 08:41 Risperidone (RisperDAL) 0.5 mg QHS PO 05/09/21 21:00 05/10/21 20:21 Mirtazapine (Remeron) 7.5 mg QHS PO 05/10/21 21:00 05/10/21 20:20 Trazodone HCl (Desyrel) 100 mg PRN QHS PRN PO 1ST CHOICE INSOMNIA 05/10/21 17:15 Oxycodone HCl (Roxicodone) 5 mg PRN Q8HRS PRN PO PAIN 05/10/21 20:00 05/10/21 21:00 Phenyleph/Shark Oil/Min Oil/Petrol (Preparation H) 1 corey PRN QID PRN RC RECTAL PAIN 05/10/21 20:00 Current Medications Medications (Trade) Dose Ordered Sig/Noble Route PRN Reason Start Time Stop Time Status Last Admin Dose Admin Alendronate Sodium (Fosamax) 70 mg QSU PO 05/10/21 16:00 05/10/21 15:39 Mirtazapine (Remeron) 7.5 mg QHS PO 05/10/21 21:00 05/10/21 20:20 Oxycodone HCl (Roxicodone) 5 mg PRN Q8HRS PRN PO PAIN 05/10/21 20:00 05/10/21 21:00 I have reviewed the current psychotropics carefully including drug interactions. Risk benefit ratio favors no change other than as noted in my dictated progress note. Diagnosis: Problems: (1) Psychotic disorder (2) Anxiety disorder, unspecified (3) Major depressive disorder with psychotic features TESS SPAIN MD May 11, 2021 09:39
[2021-05-11] MEDS: ACETAMINOPHEN 325 MG TABLET PO PRN (11:11)
--- NOTE | 2021-05-11 15:10 | NUR ---
Nursing note: Patient in dinning room for morning medications and assessment, medications taken whole. She is A&Ox4, cooperative and pleasant in her interactions. She denies VH/AH/tactile hallucinations at this time, stating "ever since I got here I haven't had them." Patient reported she only has her hallucinations at her apartment or in her car. She interacts with peers. She is currently sitting in the day room participating in group. Plan of care continues, will continue to monitor.
[2021-05-11 16:13] VITALS: BP 123/66
[2021-05-11] MEDS: traZODone 100 MG TABLET. PO SCH (20:41)
[2021-05-11] MEDS: MIRTAZAPINE 7.5 MG TABLET. PO SCH (20:42)
[2021-05-11] MEDS: amLODIPine BESYLATE 10 MG TABLET PO SCH (20:42)
[2021-05-11] MEDS: PANTOPRAZOLE 40 MG TABLET. PO SCH (20:42)
[2021-05-11] MEDS: risperiDONE 0.25 MG TABLET. PO SCH (20:42)
[2021-05-11] MEDS: ATORVASTATIN CALCIUM 10 MG TABLET. PO SCH (20:42)
[2021-05-11] MEDS: oxyCODONE IR 5 MG TABLET PO PRN (21:45)
--- NOTE | 2021-05-11 21:45 | NUR ---
PRN oxycodone given for generalized pain related to fibromyalgia.
--- NOTE | 2021-05-11 22:06 | PDOC ---
Exam Note: Tomas Note: Please also refer to the separate dictated note~for this date of service dictated separately.~Patient seen individually. Discussed the patient with Nursing staff reviewed the chart.~Reviewed interim history and current functioning. Reviewed vital signs,~Labs/ Radiology~and current medications noted below. Continue current treatment with the changes noted in the dictated addendum note Assessment: Vital Signs/I&O: Vital Signs Date Time Temp Pulse Resp B/P (MAP) Pulse Ox O2 Delivery O2 Flow Rate FiO2 05/11/21 21:45 Room Air 05/11/21 20:42 88 123/66 05/11/21 16:13 97.8 18 94 I & O 05/10/21 05/10/21 05/11/21 15:00 23:00 07:00 Intake Total 600 ml 480 ml 120 ml Balance 600 ml 480 ml 120 ml Current Medications: Meds: Current Medications Medications (Trade) Dose Ordered Sig/Noble Route PRN Reason Start Time Stop Time Status Last Admin Dose Admin Acetaminophen (Tylenol) 650 mg PRN Q6HRS PRN PO MILD PAIN / TEMP > 100.3'F 05/07/21 20:15 05/11/21 11:11 Multi-Ingredient Ointment (Analgesic [place]) 1 corey PRN QID PRN TP MUSCLE PAIN 05/07/21 20:15 05/09/21 22:35 Al Hydroxide/Mg Hydroxide (Mylanta Plus Xs) 15 ml PRN AFTMEALHC PRN PO DYSPEPSIA 05/07/21 20:15 Magnesium Hydroxide (Milk Of Magnesia) 2,400 mg PRN QHS PRN PO CONSTIPATION 05/07/21 20:15 Nicotine (Nicoderm Cq 21mg Patch) 1 patch DAILY TD 05/08/21 09:00 05/11/21 08:41 Amlodipine Besylate (Norvasc) 10 mg HS PO 05/07/21 22:00 05/11/21 20:42 Guaifenesin (Robitussin Dm) 10 ml PRN Q4HRS PRN PO COUGH 05/07/21 23:00 Meloxicam (Mobic) 7.5 mg 1200,2100 PO 05/07/21 22:00 05/09/21 17:45 DC 05/09/21 12:33 Milnacipran HCl (Savella) 50 mg HS PO 05/07/21 23:00 05/08/21 12:09 DC 05/07/21 23:00 Sodium Chloride (Saline Mist Nasal) 1 corey PRN BID PRN NS CONGESTION 05/07/21 23:00 Tizanidine HCl (Zanaflex) 4 mg PRN Q8HRS PRN PO MUSCLE SPASMS 05/07/21 23:00 05/09/21 22:34 Alendronate Sodium (Fosamax) 70 mg QSU PO 05/10/21 16:00 05/10/21 15:39 Non-Formulary Medication (Menthol (Biofreeze)) 1 corey QID PRN TP MUSCLE PAIN 05/07/21 23:00 05/07/21 23:16 DC Milnacipran HCl (Savella) 100 mg DAILY PO 05/08/21 09:00 05/08/21 12:09 DC 05/08/21 08:53 Pantoprazole Sodium (Protonix) 40 mg QHS PO 05/07/21 23:00 05/11/21 20:42 Artificial Tears (Refresh Classic) 1 drop PRN QID PRN OU DRY EYE 05/07/21 23:15 Atorvastatin Calcium (Lipitor) 10 mg QHS PO 05/08/21 21:00 05/07/21 23:19 DC Aripiprazole (Abilify) 2 mg HS PO 05/07/21 22:00 05/09/21 18:34 DC 05/08/21 21:20 Sertraline HCl (Zoloft) 150 mg DAILY PO 05/08/21 09:00 05/08/21 12:09 DC 05/08/21 08:54 Trazodone HCl (Desyrel) 100 mg HS PO 05/07/21 23:00 05/11/21 20:41 Zolpidem Tartrate (Ambien) 5 mg PRN QHS PRN PO 2ND CHOICE INSOMNIA 05/07/21 23:00 05/09/21 20:20 Pramipexole Dihydrochloride (miraPEX) 1.5 mg TID PO 05/07/21 23:00 05/11/21 20:41 Albuterol Sulfate (Ventolin Hfa Inhaler) 1 puff PRN Q4HRS PRN INH SHORTNESS OF BREATH 05/07/21 23:00 05/09/21 02:36 Atorvastatin Calcium (Lipitor) 10 mg QHS PO 05/07/21 23:30 05/11/21 20:42 Duloxetine HCl (Cymbalta) 30 mg DAILY PO 05/09/21 09:00 05/08/21 21:40 DC Duloxetine HCl (Cymbalta) 60 mg DAILY PO 05/12/21 09:00 05/08/21 21:40 DC Venlafaxine HCl (Effexor Xr) 37.5 mg DAILY PO 05/09/21 09:00 05/11/21 08:41 Cyanocobalamin (Vitamin B-12) 1,000 mcg 1X ONCE IM 05/09/21 18:00 05/09/21 18:01 DC 05/09/21 18:17 Cyanocobalamin (Vitamin B-12) 1,000 mcg Q4WK IM 06/06/21 09:00 Ferrous Sulfate (Feosol) 325 mg BIDWMEALS PO 05/09/21 18:00 05/11/21 17:22 Ascorbic Acid (Vitamin C) 500 mg BIDWMEALS PO 05/09/21 18:00 05/11/21 17:22 Risperidone (RisperDAL) 0.5 mg QHS PO 05/09/21 21:00 05/11/21 20:42 Mirtazapine (Remeron) 7.5 mg QHS PO 05/10/21 21:00 05/11/21 20:42 Trazodone HCl (Desyrel) 100 mg PRN QHS PRN PO 1ST CHOICE INSOMNIA 05/10/21 17:15 Oxycodone HCl (Roxicodone) 5 mg PRN Q8HRS PRN PO PAIN 05/10/21 20:00 05/11/21 21:45 Phenyleph/Shark Oil/Min Oil/Petrol (Preparation H) 1 corey PRN QID PRN RC RECTAL PAIN 05/10/21 20:00 I have reviewed the current psychotropics carefully including drug interactions. Risk benefit ratio favors no change other than as noted in my dictated progress note. Diagnosis: Problems: (1) Psychotic disorder (2) Anxiety disorder, unspecified (3) Major depressive disorder with psychotic features TESS SPAIN MD May 11, 2021 22:06
[2021-05-11] MEDS: ZOLPIDEM 5 MG TABLET. PO PRN (22:33)
[2021-05-11] MEDS: tiZANidine 4 MG TABLET. PO PRN (22:33)
--- NOTE | 2021-05-11 22:45 | NUR ---
PRN Ambien and tizanidine given for pain and restlessness that pt says is from her fibromyalgia.
--- NOTE | 2021-05-12 01:00 | NUR ---
Pt has been sleeping since shortly after PRN meds were given.
--- NOTE | 2021-05-12 02:25 | NUR ---
Last evening pt sat in the day room liliya with peers. She was cooperative with staff and took HS meds whole. She denies any hallucinations or delusions and she said that will not happen here "because this used to be a congregation" but that "there is still a portal in my apartment"
[2021-05-12 05:45] VITALS: BP 121/70
[2021-05-12] MEDS: NICOTINE 21MG PATCH. TD SCH (08:16)
[2021-05-12] MEDS: ASCORBIC ACID 500 MG TABLET PO SCH ×2 (08:16→17:35)
[2021-05-12] MEDS: FERROUS SULFATE 325 MG TABLET. PO SCH ×2 (08:16→17:35)
[2021-05-12] MEDS: PRAMIPEXOLE 0.5 MG TABLET. PO SCH ×3 (08:16→20:43)
[2021-05-12] MEDS: VENLAFAXINE XR 37.5 MG CAP.ER.24H. PO SCH (08:16)
[2021-05-12] MEDS ORDERED: DULoxetine HCL 60 MG CAPSULE.DR PO SCH (09:00)
[2021-05-12] MEDS: ALBUTEROL SULFATE 8GM INHALER. INH PRN (09:57)
[2021-05-12] MEDS: SODIUM CHLORIDE 0.65% NASAL SPRAY 45ML BOTTLE. NS PRN ×2 (09:57→21:29)
[2021-05-12] MEDS: POLYVINYL ALCOHOL/POVIDONE/PF OPHTH SOLUTION DROPERETTE. OU PRN (09:57)
--- NOTE | 2021-05-12 12:37 | NUR ---
Nursing note: Patient in dinning room for morning medications and assessment, medications taken whole. She is A&Ox4, cooperative and pleasant in her interactions. She denies VH/AH/tactile hallucinations at this time, stating "ever since I got here I haven't had them." Patient reported she only has her hallucinations at her apartment or in her car. She voiced concern about not being able to go home until she, her apartment & car has an exorcism. She interacts with peers & staff. Patient has a sit on walker she uses to move around unit. She is currently sitting in her room. Plan of care continues, will continue to monitor.
[2021-05-12 15:35] VITALS: BP 136/83
[2021-05-12] MEDS: ACETAMINOPHEN 325 MG TABLET PO PRN (17:36)
[2021-05-12] MEDS: ZOLPIDEM 5 MG TABLET. PO PRN (20:43)
[2021-05-12] MEDS: risperiDONE 0.25 MG TABLET. PO SCH (20:44)
[2021-05-12] MEDS: MIRTAZAPINE 7.5 MG TABLET. PO SCH (20:44)
[2021-05-12] MEDS: amLODIPine BESYLATE 10 MG TABLET PO SCH (20:44)
[2021-05-12] MEDS: PANTOPRAZOLE 40 MG TABLET. PO SCH (20:44)
[2021-05-12] MEDS: traZODone 100 MG TABLET. PO SCH (20:44)
[2021-05-12] MEDS: ATORVASTATIN CALCIUM 10 MG TABLET. PO SCH (20:44)
[2021-05-12] MEDS: tiZANidine 4 MG TABLET. PO PRN (20:44)
[2021-05-12] MEDS: oxyCODONE IR 5 MG TABLET PO PRN (21:29)
--- NOTE | 2021-05-12 21:57 | PDOC ---
Exam Note: Tomas Note: Please also refer to the separate dictated note~for this date of service dictated separately.~Patient seen individually. Discussed the patient with Nursing staff reviewed the chart.~Reviewed interim history and current functioning. Reviewed vital signs,~Labs/ Radiology~and current medications noted below. Continue current treatment with the changes noted in the dictated addendum note Assessment: Vital Signs/I&O: Vital Signs Date Time Temp Pulse Resp B/P (MAP) Pulse Ox O2 Delivery O2 Flow Rate FiO2 05/12/21 20:44 92 136/83 05/12/21 15:35 97.8 18 95 05/11/21 22:35 Room Air I & O 05/11/21 05/11/21 05/12/21 14:59 22:59 06:59 Intake Total 840 ml 720 ml Balance 840 ml 720 ml Current Medications: Meds: Current Medications Medications (Trade) Dose Ordered Sig/Noble Route PRN Reason Start Time Stop Time Status Last Admin Dose Admin Acetaminophen (Tylenol) 650 mg PRN Q6HRS PRN PO MILD PAIN / TEMP > 100.3'F 05/07/21 20:15 05/12/21 17:36 Multi-Ingredient Ointment (Analgesic [place]) 1 corey PRN QID PRN TP MUSCLE PAIN 05/07/21 20:15 05/09/21 22:35 Al Hydroxide/Mg Hydroxide (Mylanta Plus Xs) 15 ml PRN AFTMEALHC PRN PO DYSPEPSIA 05/07/21 20:15 Magnesium Hydroxide (Milk Of Magnesia) 2,400 mg PRN QHS PRN PO CONSTIPATION 05/07/21 20:15 Nicotine (Nicoderm Cq 21mg Patch) 1 patch DAILY TD 05/08/21 09:00 05/12/21 08:16 Amlodipine Besylate (Norvasc) 10 mg HS PO 05/07/21 22:00 05/12/21 20:44 Guaifenesin (Robitussin Dm) 10 ml PRN Q4HRS PRN PO COUGH 05/07/21 23:00 Meloxicam (Mobic) 7.5 mg 1200,2100 PO 05/07/21 22:00 05/09/21 17:45 DC 05/09/21 12:33 Milnacipran HCl (Savella) 50 mg HS PO 05/07/21 23:00 05/08/21 12:09 DC 05/07/21 23:00 Sodium Chloride (Saline Mist Nasal) 1 corey PRN BID PRN NS CONGESTION 05/07/21 23:00 05/12/21 21:29 Tizanidine HCl (Zanaflex) 4 mg PRN Q8HRS PRN PO MUSCLE SPASMS 05/07/21 23:00 05/12/21 20:44 Alendronate Sodium (Fosamax) 70 mg QSU PO 05/10/21 16:00 05/10/21 15:39 Non-Formulary Medication (Menthol (Biofreeze)) 1 corey QID PRN TP MUSCLE PAIN 05/07/21 23:00 05/07/21 23:16 DC Milnacipran HCl (Savella) 100 mg DAILY PO 05/08/21 09:00 05/08/21 12:09 DC 05/08/21 08:53 Pantoprazole Sodium (Protonix) 40 mg QHS PO 05/07/21 23:00 05/12/21 20:44 Artificial Tears (Refresh Classic) 1 drop PRN QID PRN OU DRY EYE 05/07/21 23:15 05/12/21 09:57 Atorvastatin Calcium (Lipitor) 10 mg QHS PO 05/08/21 21:00 05/07/21 23:19 DC Aripiprazole (Abilify) 2 mg HS PO 05/07/21 22:00 05/09/21 18:34 DC 05/08/21 21:20 Sertraline HCl (Zoloft) 150 mg DAILY PO 05/08/21 09:00 05/08/21 12:09 DC 05/08/21 08:54 Trazodone HCl (Desyrel) 100 mg HS PO 05/07/21 23:00 05/12/21 20:44 Zolpidem Tartrate (Ambien) 5 mg PRN QHS PRN PO 2ND CHOICE INSOMNIA 05/07/21 23:00 05/12/21 20:43 Pramipexole Dihydrochloride (miraPEX) 1.5 mg TID PO 05/07/21 23:00 05/12/21 20:43 Albuterol Sulfate (Ventolin Hfa Inhaler) 1 puff PRN Q4HRS PRN INH SHORTNESS OF BREATH 05/07/21 23:00 05/12/21 09:57 Atorvastatin Calcium (Lipitor) 10 mg QHS PO 05/07/21 23:30 05/12/21 20:44 Duloxetine HCl (Cymbalta) 30 mg DAILY PO 05/09/21 09:00 05/08/21 21:40 DC Duloxetine HCl (Cymbalta) 60 mg DAILY PO 05/12/21 09:00 05/08/21 21:40 DC Venlafaxine HCl (Effexor Xr) 37.5 mg DAILY PO 05/09/21 09:00 05/12/21 08:16 Cyanocobalamin (Vitamin B-12) 1,000 mcg 1X ONCE IM 05/09/21 18:00 05/09/21 18:01 DC 05/09/21 18:17 Cyanocobalamin (Vitamin B-12) 1,000 mcg Q4WK IM 06/06/21 09:00 Ferrous Sulfate (Feosol) 325 mg BIDWMEALS PO 05/09/21 18:00 05/12/21 17:35 Ascorbic Acid (Vitamin C) 500 mg BIDWMEALS PO 05/09/21 18:00 05/12/21 17:35 Risperidone (RisperDAL) 0.5 mg QHS PO 05/09/21 21:00 05/12/21 20:44 Mirtazapine (Remeron) 7.5 mg QHS PO 05/10/21 21:00 05/12/21 20:44 Trazodone HCl (Desyrel) 100 mg PRN QHS PRN PO 1ST CHOICE INSOMNIA 05/10/21 17:15 Oxycodone HCl (Roxicodone) 5 mg PRN Q8HRS PRN PO PAIN 05/10/21 20:00 05/12/21 21:29 Phenyleph/Shark Oil/Min Oil/Petrol (Preparation H) 1 corey PRN QID PRN RC RECTAL PAIN 05/10/21 20:00 I have reviewed the current psychotropics carefully including drug interactions. Risk benefit ratio favors no change other than as noted in my dictated progress note. Diagnosis: Problems: (1) Psychotic disorder (2) Anxiety disorder, unspecified (3) Major depressive disorder with psychotic features TESS SPAIN MD May 12, 2021 21:57
--- NOTE | 2021-05-12 23:47 | NUR ---
Pt sitting in day room socializing with peers when approached. Pt calm, interactive, and coherent. Pt has multiple somatic complaints, including c/o head and nasal congestion, back pain, RLS, and sores on lower gum line d/t dentures. Pt requesting "Kanka" for the sores on her gums and a Z-Jorje for sinusitis. Pt placed on MD list to see during AM rounds tomorrow. Pt cooperative with assessment and compliant with medications administered whole. PRN Ambien and Zanaflex administered @2042 with HS medications and PRN Oxycodone and Nasal spray administered at 2128. Pt at times walking around in hallway or day room stomping her feet on the ground because of her RLS.
[2021-05-13 05:19] VITALS: BP 131/82
--- NOTE | 2021-05-13 08:25 | PDOC ---
Exam Note: Tomas Note: This note is a late entry for 05/11/2021 covers elements not covered in my initial note. Subjective: patient was seen individually in the evening of 05/11/2021 with Neelam MAY, discussed and reviewed the chart. The patient slept 5-1/2 hours previous night. Average sleep 3-1/2 hours. She has been attending groups, quite appropriate and denies experiencing any portals here at the hospital. When questioned she initially stated that they are probably still at her home and in the car but as we talked further she was not very definitive about this and indicated that may be they are going away even at those places. This is movement in her psychosis in the right direction. Review of Systems: No CV, , pulmonary, eye, ENT system symptoms on review. Mental Status Exam: The patient is reasonably oriented. She talked at some length about her upbringing and she states her father wanted her to do whatever she wanted in life and that she gave [employer] test and was in the 90th percentile she wanted to join the [employer] and be a executive pilot on one of the space missions but her mother wanted her to get and have children. 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 Speech is hyperverbal. Abstraction fair. Computation impaired. Language function intact. Attention span short. Mood and affect quite animated, appropriate, goal directed in her thinking. No suicidal or homicidal ideation. No active hallucinations. Laboratory Data: Reviewed. Impression: Major depressive disorder with psychotic features. Psychotic disorder unspecified. Anxiety disorder unspecified. Plan: We will continue current psychotropics. If psychotic symptoms, resurfaces we may increase the Risperdal but currently it is at 0.5 mg h.s. Her pain appears to have improved but if she later needs Savella it could be started at low dosages as an outpatient. Assessment: Vital Signs/I&O: Vital Signs Date Time Temp Pulse Resp B/P (MAP) Pulse Ox O2 Delivery O2 Flow Rate FiO2 05/13/21 05:19 98.1 88 20 131/82 (98) 94 Room Air I & O 05/12/21 05/12/21 05/13/21 15:00 23:00 07:00 Intake Total 1540 ml 840 ml Balance 1540 ml 840 ml Current Medications: Meds: Current Medications Medications (Trade) Dose Ordered Sig/Noble Route PRN Reason Start Time Stop Time Status Last Admin Dose Admin Acetaminophen (Tylenol) 650 mg PRN Q6HRS PRN PO MILD PAIN / TEMP > 100.3'F 05/07/21 20:15 05/12/21 17:36 Multi-Ingredient Ointment (Analgesic [place]) 1 corey PRN QID PRN TP MUSCLE PAIN 05/07/21 20:15 05/09/21 22:35 Al Hydroxide/Mg Hydroxide (Mylanta Plus Xs) 15 ml PRN AFTMEALHC PRN PO DYSPEPSIA 05/07/21 20:15 Magnesium Hydroxide (Milk Of Magnesia) 2,400 mg PRN QHS PRN PO CONSTIPATION 05/07/21 20:15 Nicotine (Nicoderm Cq 21mg Patch) 1 patch DAILY TD 05/08/21 09:00 05/12/21 08:16 Amlodipine Besylate (Norvasc) 10 mg HS PO 05/07/21 22:00 05/12/21 20:44 Guaifenesin (Robitussin Dm) 10 ml PRN Q4HRS PRN PO COUGH 05/07/21 23:00 Meloxicam (Mobic) 7.5 mg 1200,2100 PO 05/07/21 22:00 05/09/21 17:45 DC 05/09/21 12:33 Milnacipran HCl (Savella) 50 mg HS PO 05/07/21 23:00 05/08/21 12:09 DC 05/07/21 23:00 Sodium Chloride (Saline Mist Nasal) 1 corey PRN BID PRN NS CONGESTION 05/07/21 23:00 05/12/21 21:29 Tizanidine HCl (Zanaflex) 4 mg PRN Q8HRS PRN PO MUSCLE SPASMS 05/07/21 23:00 05/12/21 20:44 Alendronate Sodium (Fosamax) 70 mg QSU PO 05/10/21 16:00 05/10/21 15:39 Non-Formulary Medication (Menthol (Biofreeze)) 1 corey QID PRN TP MUSCLE PAIN 05/07/21 23:00 05/07/21 23:16 DC Milnacipran HCl (Savella) 100 mg DAILY PO 05/08/21 09:00 05/08/21 12:09 DC 05/08/21 08:53 Pantoprazole Sodium (Protonix) 40 mg QHS PO 05/07/21 23:00 05/12/21 20:44 Artificial Tears (Refresh Classic) 1 drop PRN QID PRN OU DRY EYE 05/07/21 23:15 05/12/21 09:57 Atorvastatin Calcium (Lipitor) 10 mg QHS PO 05/08/21 21:00 05/07/21 23:19 DC Aripiprazole (Abilify) 2 mg HS PO 05/07/21 22:00 05/09/21 18:34 DC 05/08/21 21:20 Sertraline HCl (Zoloft) 150 mg DAILY PO 05/08/21 09:00 05/08/21 12:09 DC 05/08/21 08:54 Trazodone HCl (Desyrel) 100 mg HS PO 05/07/21 23:00 05/12/21 20:44 Zolpidem Tartrate (Ambien) 5 mg PRN QHS PRN PO 2ND CHOICE INSOMNIA 05/07/21 23:00 05/12/21 20:43 Pramipexole Dihydrochloride (miraPEX) 1.5 mg TID PO 05/07/21 23:00 05/12/21 20:43 Albuterol Sulfate (Ventolin Hfa Inhaler) 1 puff PRN Q4HRS PRN INH SHORTNESS OF BREATH 05/07/21 23:00 05/12/21 09:57 Atorvastatin Calcium (Lipitor) 10 mg QHS PO 05/07/21 23:30 05/12/21 20:44 Duloxetine HCl (Cymbalta) 30 mg DAILY PO 05/09/21 09:00 05/08/21 21:40 DC Duloxetine HCl (Cymbalta) 60 mg DAILY PO 05/12/21 09:00 05/08/21 21:40 DC Venlafaxine HCl (Effexor Xr) 37.5 mg DAILY PO 05/09/21 09:00 05/12/21 08:16 Cyanocobalamin (Vitamin B-12) 1,000 mcg 1X ONCE IM 05/09/21 18:00 05/09/21 18:01 DC 05/09/21 18:17 Cyanocobalamin (Vitamin B-12) 1,000 mcg Q4WK IM 06/06/21 09:00 Ferrous Sulfate (Feosol) 325 mg BIDWMEALS PO 05/09/21 18:00 05/12/21 17:35 Ascorbic Acid (Vitamin C) 500 mg BIDWMEALS PO 05/09/21 18:00 05/12/21 17:35 Risperidone (RisperDAL) 0.5 mg QHS PO 05/09/21 21:00 05/12/21 20:44 Mirtazapine (Remeron) 7.5 mg QHS PO 05/10/21 21:00 05/12/21 20:44 Trazodone HCl (Desyrel) 100 mg PRN QHS PRN PO 1ST CHOICE INSOMNIA 05/10/21 17:15 Oxycodone HCl (Roxicodone) 5 mg PRN Q8HRS PRN PO PAIN 05/10/21 20:00 05/12/21 21:29 Phenyleph/Shark Oil/Min Oil/Petrol (Preparation H) 1 corey PRN QID PRN RC RECTAL PAIN 05/10/21 20:00 I have reviewed the current psychotropics carefully including drug interactions. Risk benefit ratio favors no change other than as noted in my dictated progress note. Diagnosis: Problems: (1) Psychotic disorder (2) Anxiety disorder, unspecified (3) Major depressive disorder with psychotic features TESS SPAIN MD May 13, 2021 08:25
[2021-05-13] MEDS: POLYVINYL ALCOHOL/POVIDONE/PF OPHTH SOLUTION DROPERETTE. OU PRN ×2 (08:28→20:17)
[2021-05-13] MEDS: SODIUM CHLORIDE 0.65% NASAL SPRAY 45ML BOTTLE. NS PRN (08:34)
[2021-05-13] MEDS: FERROUS SULFATE 325 MG TABLET. PO SCH ×2 (08:34→17:30)
[2021-05-13] MEDS: ASCORBIC ACID 500 MG TABLET PO SCH ×2 (08:34→17:30)
[2021-05-13] MEDS: PRAMIPEXOLE 0.5 MG TABLET. PO SCH ×3 (08:34→20:18)
[2021-05-13] MEDS: VENLAFAXINE XR 37.5 MG CAP.ER.24H. PO SCH (08:39)
[2021-05-13] MEDS: NICOTINE 21MG PATCH. TD SCH (08:39)
[2021-05-13] MEDS: ALBUTEROL SULFATE 8GM INHALER. INH PRN ×2 (08:43→20:17)
--- NOTE | 2021-05-13 08:53 | PDOC ---
Exam Note: Tomas Note: This note is a late entry for 05/12/2021 covers elements not covered in my initial note. Subjective: patient was seen individually in the evening of 05/12/2021 with Neelam MAY, discussed and reviewed the chart. The patient slept 6 hours previous night. No delusions noted though she feels there are still portals at her home and in the car. She is tearful at times. Review of Systems: Ambulation impaired with walker. No CV, , pulmonary, eye, ENT system symptoms on review. Mental Status Exam: The patient is reasonably oriented. As I met with her individually she was braiding her hair and doing a good job at it. Speech is hyperverbal. Abstraction fair. Computation impaired. Language function intact. Attention span short. Mood and affect quite animated, appropriate. No suicidal or homicidal ideation. No active hallucinations. Laboratory Data: Reviewed. Impression: Major depressive disorder with psychotic features. Psychotic disorder unspecified. Anxiety disorder unspecified. Plan: We will continue current psychotropics. Assessment: Vital Signs/I&O: Vital Signs Date Time Temp Pulse Resp B/P (MAP) Pulse Ox O2 Delivery O2 Flow Rate FiO2 05/13/21 05:19 98.1 88 20 131/82 (98) 94 Room Air I & O 05/12/21 05/12/21 05/13/21 14:59 22:59 06:59 Intake Total 1540 ml 840 ml Balance 1540 ml 840 ml Current Medications: Meds: Current Medications Medications (Trade) Dose Ordered Sig/Noble Route PRN Reason Start Time Stop Time Status Last Admin Dose Admin Acetaminophen (Tylenol) 650 mg PRN Q6HRS PRN PO MILD PAIN / TEMP > 100.3'F 05/07/21 20:15 05/12/21 17:36 Multi-Ingredient Ointment (Analgesic [place]) 1 corey PRN QID PRN TP MUSCLE PAIN 05/07/21 20:15 05/09/21 22:35 Al Hydroxide/Mg Hydroxide (Mylanta Plus Xs) 15 ml PRN AFTMEALHC PRN PO DYSPEPSIA 05/07/21 20:15 Magnesium Hydroxide (Milk Of Magnesia) 2,400 mg PRN QHS PRN PO CONSTIPATION 05/07/21 20:15 Nicotine (Nicoderm Cq 21mg Patch) 1 patch DAILY TD 05/08/21 09:00 05/13/21 08:39 Amlodipine Besylate (Norvasc) 10 mg HS PO 05/07/21 22:00 05/12/21 20:44 Guaifenesin (Robitussin Dm) 10 ml PRN Q4HRS PRN PO COUGH 05/07/21 23:00 Meloxicam (Mobic) 7.5 mg 1200,2100 PO 05/07/21 22:00 05/09/21 17:45 DC 05/09/21 12:33 Milnacipran HCl (Savella) 50 mg HS PO 05/07/21 23:00 05/08/21 12:09 DC 05/07/21 23:00 Sodium Chloride (Saline Mist Nasal) 1 corey PRN BID PRN NS CONGESTION 05/07/21 23:00 05/13/21 08:34 Tizanidine HCl (Zanaflex) 4 mg PRN Q8HRS PRN PO MUSCLE SPASMS 05/07/21 23:00 05/12/21 20:44 Alendronate Sodium (Fosamax) 70 mg QSU PO 05/10/21 16:00 05/10/21 15:39 Non-Formulary Medication (Menthol (Biofreeze)) 1 corey QID PRN TP MUSCLE PAIN 05/07/21 23:00 05/07/21 23:16 DC Milnacipran HCl (Savella) 100 mg DAILY PO 05/08/21 09:00 05/08/21 12:09 DC 05/08/21 08:53 Pantoprazole Sodium (Protonix) 40 mg QHS PO 05/07/21 23:00 05/12/21 20:44 Artificial Tears (Refresh Classic) 1 drop PRN QID PRN OU DRY EYE 05/07/21 23:15 05/13/21 08:28 Atorvastatin Calcium (Lipitor) 10 mg QHS PO 05/08/21 21:00 05/07/21 23:19 DC Aripiprazole (Abilify) 2 mg HS PO 05/07/21 22:00 05/09/21 18:34 DC 05/08/21 21:20 Sertraline HCl (Zoloft) 150 mg DAILY PO 05/08/21 09:00 05/08/21 12:09 DC 05/08/21 08:54 Trazodone HCl (Desyrel) 100 mg HS PO 05/07/21 23:00 05/12/21 20:44 Zolpidem Tartrate (Ambien) 5 mg PRN QHS PRN PO 2ND CHOICE INSOMNIA 05/07/21 23:00 05/12/21 20:43 Pramipexole Dihydrochloride (miraPEX) 1.5 mg TID PO 05/07/21 23:00 05/13/21 08:34 Albuterol Sulfate (Ventolin Hfa Inhaler) 1 puff PRN Q4HRS PRN INH SHORTNESS OF BREATH 05/07/21 23:00 05/13/21 08:43 Atorvastatin Calcium (Lipitor) 10 mg QHS PO 05/07/21 23:30 05/12/21 20:44 Duloxetine HCl (Cymbalta) 30 mg DAILY PO 05/09/21 09:00 05/08/21 21:40 DC Duloxetine HCl (Cymbalta) 60 mg DAILY PO 05/12/21 09:00 05/08/21 21:40 DC Venlafaxine HCl (Effexor Xr) 37.5 mg DAILY PO 05/09/21 09:00 05/13/21 08:39 Cyanocobalamin (Vitamin B-12) 1,000 mcg 1X ONCE IM 05/09/21 18:00 05/09/21 18:01 DC 05/09/21 18:17 Cyanocobalamin (Vitamin B-12) 1,000 mcg Q4WK IM 06/06/21 09:00 Ferrous Sulfate (Feosol) 325 mg BIDWMEALS PO 05/09/21 18:00 05/13/21 08:34 Ascorbic Acid (Vitamin C) 500 mg BIDWMEALS PO 05/09/21 18:00 05/13/21 08:34 Risperidone (RisperDAL) 0.5 mg QHS PO 05/09/21 21:00 05/12/21 20:44 Mirtazapine (Remeron) 7.5 mg QHS PO 05/10/21 21:00 05/12/21 20:44 Trazodone HCl (Desyrel) 100 mg PRN QHS PRN PO 1ST CHOICE INSOMNIA 05/10/21 17:15 Oxycodone HCl (Roxicodone) 5 mg PRN Q8HRS PRN PO PAIN 05/10/21 20:00 05/12/21 21:29 Phenyleph/Shark Oil/Min Oil/Petrol (Preparation H) 1 corey PRN QID PRN RC RECTAL PAIN 05/10/21 20:00 I have reviewed the current psychotropics carefully including drug interactions. Risk benefit ratio favors no change other than as noted in my dictated progress note. Diagnosis: Problems: (1) Psychotic disorder (2) Anxiety disorder, unspecified (3) Major depressive disorder with psychotic features TESS SPAIN MD May 13, 2021 08:53
[2021-05-13] MEDS: ACETAMINOPHEN 325 MG TABLET PO PRN (09:30)
--- NOTE | 2021-05-13 14:26 | NUR ---
Nursing note: Patient in dinning room for morning medications and assessment, medications taken whole. She is A&Ox4, cooperative and pleasant in her interactions. She denies VH/AH/tactile hallucinations at this time, stating "ever since I got here I haven't had them." Patient reported she only has her hallucinations at her apartment or in her car. She voiced concern about not being able to go home until she, her apartment & car has an exorcism. She has been c/o pain not relieved by Tylenol, requesting Savella which is not ordered. She is also c/o lower right gums pain from her dentures. She interacts with peers & staff. Patient has a sit on walker she uses to move around unit. She is currently sitting in day room. Plan of care continues, will continue to monitor.
--- NOTE | 2021-05-13 14:53 | NUR ---
SW completed review for [facility] via phone and on a recorded line. KRISTA will wait to hear back from Silvina, insurance underwriter sales, on the review decision for denial or continued stay.
[2021-05-13 15:46] VITALS: BP 109/67
[2021-05-13] MEDS: amLODIPine BESYLATE 10 MG TABLET PO SCH (20:19)
[2021-05-13] MEDS: MIRTAZAPINE 7.5 MG TABLET. PO SCH (20:19)
[2021-05-13] MEDS: risperiDONE 0.25 MG TABLET. PO SCH (20:19)
[2021-05-13] MEDS: PANTOPRAZOLE 40 MG TABLET. PO SCH (20:19)
[2021-05-13] MEDS: ATORVASTATIN CALCIUM 10 MG TABLET. PO SCH (20:19)
[2021-05-13] MEDS: traZODone 100 MG TABLET. PO SCH (20:19)
[2021-05-13] MEDS: ZOLPIDEM 5 MG TABLET. PO PRN (20:19)
[2021-05-13] MEDS: tiZANidine 4 MG TABLET. PO PRN (20:19)
[2021-05-13] MEDS: oxyCODONE IR 5 MG TABLET PO PRN (20:20)
--- NOTE | 2021-05-13 22:25 | PDOC ---
Exam Note: Tomas Note: Please also refer to the separate dictated note~for this date of service dictated separately.~Patient seen individually. Discussed the patient with Nursing staff reviewed the chart.~Reviewed interim history and current functioning. Reviewed vital signs,~Labs/ Radiology~and current medications noted below. Continue current treatment with the changes noted in the dictated addendum note Assessment: Vital Signs/I&O: Vital Signs Date Time Temp Pulse Resp B/P (MAP) Pulse Ox O2 Delivery O2 Flow Rate FiO2 05/13/21 20:50 94 05/13/21 20:19 95 109/67 05/13/21 15:46 98.2 18 05/13/21 05:19 Room Air I & O 05/12/21 05/12/21 05/13/21 15:00 23:00 07:00 Intake Total 1540 ml 840 ml Balance 1540 ml 840 ml Current Medications: Meds: Current Medications Medications (Trade) Dose Ordered Sig/Noble Route PRN Reason Start Time Stop Time Status Last Admin Dose Admin Acetaminophen (Tylenol) 650 mg PRN Q6HRS PRN PO MILD PAIN / TEMP > 100.3'F 05/07/21 20:15 05/13/21 09:30 Multi-Ingredient Ointment (Analgesic [place]) 1 corey PRN QID PRN TP MUSCLE PAIN 05/07/21 20:15 05/09/21 22:35 Al Hydroxide/Mg Hydroxide (Mylanta Plus Xs) 15 ml PRN AFTMEALHC PRN PO DYSPEPSIA 05/07/21 20:15 Magnesium Hydroxide (Milk Of Magnesia) 2,400 mg PRN QHS PRN PO CONSTIPATION 05/07/21 20:15 Nicotine (Nicoderm Cq 21mg Patch) 1 patch DAILY TD 05/08/21 09:00 05/13/21 08:39 Amlodipine Besylate (Norvasc) 10 mg HS PO 05/07/21 22:00 05/13/21 20:19 Guaifenesin (Robitussin Dm) 10 ml PRN Q4HRS PRN PO COUGH 05/07/21 23:00 Meloxicam (Mobic) 7.5 mg 1200,2100 PO 05/07/21 22:00 05/09/21 17:45 DC 05/09/21 12:33 Milnacipran HCl (Savella) 50 mg HS PO 05/07/21 23:00 05/08/21 12:09 DC 05/07/21 23:00 Sodium Chloride (Saline Mist Nasal) 1 corey PRN BID PRN NS CONGESTION 05/07/21 23:00 05/13/21 08:34 Tizanidine HCl (Zanaflex) 4 mg PRN Q8HRS PRN PO MUSCLE SPASMS 05/07/21 23:00 05/13/21 20:19 Alendronate Sodium (Fosamax) 70 mg QSU PO 05/10/21 16:00 05/10/21 15:39 Non-Formulary Medication (Menthol (Biofreeze)) 1 corey QID PRN TP MUSCLE PAIN 05/07/21 23:00 05/07/21 23:16 DC Milnacipran HCl (Savella) 100 mg DAILY PO 05/08/21 09:00 05/08/21 12:09 DC 05/08/21 08:53 Pantoprazole Sodium (Protonix) 40 mg QHS PO 05/07/21 23:00 05/13/21 20:19 Artificial Tears (Refresh Classic) 1 drop PRN QID PRN OU DRY EYE 05/07/21 23:15 05/13/21 20:17 Atorvastatin Calcium (Lipitor) 10 mg QHS PO 05/08/21 21:00 05/07/21 23:19 DC Aripiprazole (Abilify) 2 mg HS PO 05/07/21 22:00 05/09/21 18:34 DC 05/08/21 21:20 Sertraline HCl (Zoloft) 150 mg DAILY PO 05/08/21 09:00 05/08/21 12:09 DC 05/08/21 08:54 Trazodone HCl (Desyrel) 100 mg HS PO 05/07/21 23:00 05/13/21 20:19 Zolpidem Tartrate (Ambien) 5 mg PRN QHS PRN PO 2ND CHOICE INSOMNIA 05/07/21 23:00 05/13/21 20:19 Pramipexole Dihydrochloride (miraPEX) 1.5 mg TID PO 05/07/21 23:00 05/13/21 20:18 Albuterol Sulfate (Ventolin Hfa Inhaler) 1 puff PRN Q4HRS PRN INH SHORTNESS OF BREATH 05/07/21 23:00 05/13/21 20:17 Atorvastatin Calcium (Lipitor) 10 mg QHS PO 05/07/21 23:30 05/13/21 20:19 Duloxetine HCl (Cymbalta) 30 mg DAILY PO 05/09/21 09:00 05/08/21 21:40 DC Duloxetine HCl (Cymbalta) 60 mg DAILY PO 05/12/21 09:00 05/08/21 21:40 DC Venlafaxine HCl (Effexor Xr) 37.5 mg DAILY PO 05/09/21 09:00 05/13/21 08:39 Cyanocobalamin (Vitamin B-12) 1,000 mcg 1X ONCE IM 05/09/21 18:00 05/09/21 18:01 DC 05/09/21 18:17 Cyanocobalamin (Vitamin B-12) 1,000 mcg Q4WK IM 06/06/21 09:00 Ferrous Sulfate (Feosol) 325 mg BIDWMEALS PO 05/09/21 18:00 05/13/21 17:30 Ascorbic Acid (Vitamin C) 500 mg BIDWMEALS PO 05/09/21 18:00 05/13/21 17:30 Risperidone (RisperDAL) 0.5 mg QHS PO 05/09/21 21:00 05/13/21 20:19 Mirtazapine (Remeron) 7.5 mg QHS PO 05/10/21 21:00 05/13/21 20:19 Trazodone HCl (Desyrel) 100 mg PRN QHS PRN PO 1ST CHOICE INSOMNIA 05/10/21 17:15 Oxycodone HCl (Roxicodone) 5 mg PRN Q8HRS PRN PO PAIN 05/10/21 20:00 05/13/21 20:20 Phenyleph/Shark Oil/Min Oil/Petrol (Preparation H) 1 corey PRN QID PRN RC RECTAL PAIN 05/10/21 20:00 I have reviewed the current psychotropics carefully including drug interactions. Risk benefit ratio favors no change other than as noted in my dictated progress note. Diagnosis: Problems: (1) Psychotic disorder (2) Anxiety disorder, unspecified (3) Major depressive disorder with psychotic features TESS SPAIN MD May 13, 2021 22:25
--- NOTE | 2021-05-13 23:07 | NUR ---
Pt sitting in day room when approached. Pt calm, interactive, and social with staff and peers. Pt cooperative with assessment and compliant with medications administered whole. Pt c/o pain "all over" and states "this is the worst it's been since I got here". Pt asking for her Savella and states "Dr. Reinoso said he was going to put me back on it. He said he's gonna start me back on a low dose of it". I advised pt that Dr. Reinoso had not communicated this to the nursing staff nor had he given an order to restart the Savella. PRN Oxycodone, Zanaflex, Refresh gtts, Albuterol MDI, and Ambien administered at HS as requested by pt.
[2021-05-14 05:50] VITALS: BP 113/71
[2021-05-14 06:07] LABS: BASO # 0.3 x10^3/uL (0.0-0.2); BASO % 3 % (0-3); EOS # 0.5 x10^3/uL (0.0-0.7); EOS % 7 % (0-3); HEMATOCRIT 34.6 % (36.0-47.0); HEMOGLOBIN 10.8 g/dL (12.0-15.5); LYMPH # 1.6 x10^3/uL (1.0-4.8); LYMPH % 21 % (24-48); MEAN CORPUSCULAR HEMOGLOBIN 23 pg (25-35); MEAN CORPUSCULAR HGB CONC 31 g/dL (31-37); MEAN CORPUSCULAR VOLUME 74 fL (79-100); MONO # 0.7 x10^3/uL (0.0-1.1); MONO % 9 % (0-9); NEUT # 4.5 x10^3uL (1.8-7.7); NEUT % 60 % (31-73); PLATELET COUNT 257 x10^3/uL (140-400); RED CELL DISTRIBUTION WIDTH 22.3 % (11.5-14.5); WHITE BLOOD COUNT 7.6 x10^3/uL (4.0-11.0)
[2021-05-14 06:23] LABS: ALBUMIN 2.8 g/dL (3.4-5.0); ALBUMIN/GLOBULIN RATIO 0.8 (1.0-1.7); CALCIUM 8.2 mg/dL (8.5-10.1); CREATININE 0.7 mg/dL (0.6-1.0); GFR 85.1; POTASSIUM 4.3 mmol/L (3.5-5.1); TOTAL BILIRUBIN 0.2 mg/dL (0.2-1.0); TOTAL PROTEIN 6.1 g/dL (6.4-8.2)
[2021-05-14] MEDS: FERROUS SULFATE 325 MG TABLET. PO SCH ×2 (08:38→17:26)
[2021-05-14] MEDS: ASCORBIC ACID 500 MG TABLET PO SCH ×2 (08:38→17:27)
[2021-05-14] MEDS: VENLAFAXINE XR 37.5 MG CAP.ER.24H. PO SCH (08:38)
[2021-05-14] MEDS: PRAMIPEXOLE 0.5 MG TABLET. PO SCH ×3 (08:38→20:33)
[2021-05-14] MEDS: POLYVINYL ALCOHOL/POVIDONE/PF OPHTH SOLUTION DROPERETTE. OU PRN ×2 (08:38→20:32)
[2021-05-14] MEDS: SODIUM CHLORIDE 0.65% NASAL SPRAY 45ML BOTTLE. NS PRN ×2 (08:39→20:31)
[2021-05-14] MEDS: NICOTINE 21MG PATCH. TD SCH (08:39)
[2021-05-14] MEDS: ALBUTEROL SULFATE 8GM INHALER. INH PRN ×2 (08:39→20:31)
[2021-05-14] MEDS: ACETAMINOPHEN 325 MG TABLET PO PRN (10:04)
--- NOTE | 2021-05-14 10:45 | NUR ---
Treatment team note: Pt is eating 100% of meals and sleeping 4.5 hours per night. Pt is pleasant and cooperative, generally denying any HI/SI and denying hallucinations or delusions. Pt feels that since she has been admitted to the hospital they have lessened, believing that because the hospital is an old jehovah's witness the portals aren't here like they are in her home and car. Pt has participated in 6 groups this week with moderate to full participation. Pt believes that her friend has scheduled an exorcism to rid of the portals from her home which makes her feel better. Pt will re-start Savaella 25mg daily and the Risperdal to 0.75mg daily. Pt will return home and have services with the local mental health facility; KRISTA to finalize these plans.
[2021-05-14] MEDS: MILNACIPRAN 50 MG TABLET PO SCH (12:00)
--- NOTE | 2021-05-14 12:15 | NUR ---
WEEKLY ACTIVITY THERAPY NOTE Date of Admission: 05/07/21 Date of AT Assessment: 05/08 Precipitating behaviors that initiated intake and admission: Pt fearful, anxious, self care failure with poor intake; reports there are demons in her apartment, Tactile/VH, thinks demons are poking her with pins and that they will do her in; she has been afraid to be in her apartment and has been staying in her car. Goal aimed: increase stress management and relaxation skills Initial Goal:Pt will participate in at least five individual or group Activity Therapy sessions per week Weekly progress towards goal:achieved, 03/28 Group participation level: 1 min, 2 mod, 3 full Weekly highlights: country music bingo Tuesday, carson video and card game Tuesday, patio and gospel music Tuesday Behaviors observed: social and pleasant, calm and compliant Plan: change goal to: Pt will participate in all Activity Therapy groups offered. Beneficial adaptations: socialization and engagement
--- NOTE | 2021-05-14 14:05 | NUR ---
KRISTA contacted [facility] and was transferred to talk to Brian but ended up speaking to Jacki. Jacki reports that pt came in through the crisis center but does not have any services available to her yet. KRISTA was instructed to contact Favian Santos at to get those services set up.
--- NOTE | 2021-05-14 14:19 | NUR ---
SW returned call to Mitra Cool telephone sales representative and left a message to let her know that pt does not have any services. Pt came to the mental health facility through their crisis center. An intake was taken but no services were actually set up as pt wound up as inpt for a few weeks. KRISTA will wait to hear back from Silvina re: insurance denial or approval for continued stay.
[2021-05-14 15:54] VITALS: BP 150/53
--- NOTE | 2021-05-14 17:05 | NUR ---
Nursing note: Patient in dinning room for morning medications and assessment, medications taken whole. She is A&Ox4, cooperative and pleasant in her interactions. She denies VH/AH/tactile hallucinations at this time, stating "ever since I got here I haven't had them." Patient reported she only has her hallucinations at her apartment or in her car. She voiced concern about not being able to go home until she, her apartment & car has an exorcism. She is also c/o lower right gums pain from her dentures. She interacts with peers & staff. Patient has a sit on walker she uses to move around unit. She is currently in dinning room. Plan of care continues, will continue to monitor.
[2021-05-14] MEDS: traZODone 100 MG TABLET. PO SCH (20:32)
[2021-05-14] MEDS: risperiDONE 0.25 MG TABLET. PO SCH (20:33)
[2021-05-14] MEDS: PANTOPRAZOLE 40 MG TABLET. PO SCH (20:33)
[2021-05-14] MEDS: ZOLPIDEM 5 MG TABLET. PO PRN (20:33)
[2021-05-14] MEDS: MIRTAZAPINE 7.5 MG TABLET. PO SCH (20:33)
[2021-05-14] MEDS: tiZANidine 4 MG TABLET. PO PRN (20:33)
[2021-05-14] MEDS: ATORVASTATIN CALCIUM 10 MG TABLET. PO SCH (20:34)
[2021-05-14] MEDS: amLODIPine BESYLATE 10 MG TABLET PO SCH (20:34)
[2021-05-14] MEDS: oxyCODONE IR 5 MG TABLET PO PRN (21:44)
--- NOTE | 2021-05-14 22:03 | PDOC ---
Exam Note: Tomas Note: Please also refer to the separate dictated note~for this date of service dictated separately.~Patient seen individually. Discussed the patient with Nursing staff reviewed the chart.~Reviewed interim history and current functioning. Reviewed vital signs,~Labs/ Radiology~and current medications noted below. Continue current treatment with the changes noted in the dictated addendum note Assessment: Vital Signs/I&O: Vital Signs Date Time Temp Pulse Resp B/P (MAP) Pulse Ox O2 Delivery O2 Flow Rate FiO2 05/14/21 20:34 99 150/53 05/14/21 15:54 97.8 18 95 05/13/21 05:19 Room Air I & O 05/13/21 05/13/21 05/14/21 15:00 23:00 07:00 Intake Total 600 ml 360 ml 360 ml Balance 600 ml 360 ml 360 ml Labs: Laboratory Tests Test 05/14/21 05:48 White Blood Count 7.6 x10^3/uL (4.0-11.0) Red Blood Count 4.70 x10^6/uL (3.50-5.40) Hemoglobin 10.8 g/dL (12.0-15.5) L Hematocrit 34.6 % (36.0-47.0) L Mean Corpuscular Volume 74 fL (79-100) L Mean Corpuscular Hemoglobin 23 pg (25-35) L Mean Corpuscular Hemoglobin Concent 31 g/dL (31-37) Red Cell Distribution Width 22.3 % (11.5-14.5) H Platelet Count 257 x10^3/uL (140-400) Neutrophils (%) (Auto) 60 % (31-73) Lymphocytes (%) (Auto) 21 % (24-48) L Monocytes (%) (Auto) 9 % (0-9) Eosinophils (%) (Auto) 7 % (0-3) H Basophils (%) (Auto) 3 % (0-3) Neutrophils # (Auto) 4.5 x10^3uL (1.8-7.7) Lymphocytes # (Auto) 1.6 x10^3/uL (1.0-4.8) Monocytes # (Auto) 0.7 x10^3/uL (0.0-1.1) Eosinophils # (Auto) 0.5 x10^3/uL (0.0-0.7) Basophils # (Auto) 0.3 x10^3/uL (0.0-0.2) H Sodium Level 144 mmol/L (136-145) Potassium Level 4.3 mmol/L (3.5-5.1) Chloride Level 105 mmol/L (98-107) Carbon Dioxide Level 34 mmol/L (21-32) H Anion Gap 5 (6-14) L Blood Urea Nitrogen 10 mg/dL (7-20) Creatinine 0.7 mg/dL (0.6-1.0) Estimated GFR (Cockcroft-Gault) 85.1 BUN/Creatinine Ratio 14 (6-20) Glucose Level 102 mg/dL (70-99) H Calcium Level 8.2 mg/dL (8.5-10.1) L Total Bilirubin 0.2 mg/dL (0.2-1.0) Aspartate Amino Transferase (AST) 18 U/L (15-37) Alanine Aminotransferase (ALT) 24 U/L (14-59) Alkaline Phosphatase 85 U/L (46-116) Total Protein 6.1 g/dL (6.4-8.2) L Albumin 2.8 g/dL (3.4-5.0) L Albumin/Globulin Ratio 0.8 (1.0-1.7) L Current Medications: Meds: Laboratory Tests Test 05/14/21 05:48 White Blood Count 7.6 x10^3/uL Red Blood Count 4.70 x10^6/uL Hemoglobin 10.8 g/dL Hematocrit 34.6 % Mean Corpuscular Volume 74 fL Mean Corpuscular Hemoglobin 23 pg Mean Corpuscular Hemoglobin Concent 31 g/dL Red Cell Distribution Width 22.3 % Platelet Count 257 x10^3/uL Neutrophils (%) (Auto) 60 % Lymphocytes (%) (Auto) 21 % Monocytes (%) (Auto) 9 % Eosinophils (%) (Auto) 7 % Basophils (%) (Auto) 3 % Neutrophils # (Auto) 4.5 x10^3uL Lymphocytes # (Auto) 1.6 x10^3/uL Monocytes # (Auto) 0.7 x10^3/uL Eosinophils # (Auto) 0.5 x10^3/uL Basophils # (Auto) 0.3 x10^3/uL Sodium Level 144 mmol/L Potassium Level 4.3 mmol/L Chloride Level 105 mmol/L Carbon Dioxide Level 34 mmol/L Anion Gap 5 Blood Urea Nitrogen 10 mg/dL Creatinine 0.7 mg/dL Estimated GFR (Cockcroft-Gault) 85.1 BUN/Creatinine Ratio 14 Glucose Level 102 mg/dL Calcium Level 8.2 mg/dL Total Bilirubin 0.2 mg/dL Aspartate Amino Transf (AST/SGOT) 18 U/L Alanine Aminotransferase (ALT/SGPT) 24 U/L Alkaline Phosphatase 85 U/L Total Protein 6.1 g/dL Albumin 2.8 g/dL Albumin/Globulin Ratio 0.8 Current Medications Medications (Trade) Dose Ordered Sig/Noble Route PRN Reason Start Time Stop Time Status Last Admin Dose Admin Acetaminophen (Tylenol) 650 mg PRN Q6HRS PRN PO MILD PAIN / TEMP > 100.3'F 05/07/21 20:15 05/14/21 10:04 Multi-Ingredient Ointment (Analgesic [place]) 1 corey PRN QID PRN TP MUSCLE PAIN 05/07/21 20:15 05/09/21 22:35 Al Hydroxide/Mg Hydroxide (Mylanta Plus Xs) 15 ml PRN AFTMEALHC PRN PO DYSPEPSIA 05/07/21 20:15 Magnesium Hydroxide (Milk Of Magnesia) 2,400 mg PRN QHS PRN PO CONSTIPATION 05/07/21 20:15 Nicotine (Nicoderm Cq 21mg Patch) 1 patch DAILY TD 05/08/21 09:00 05/14/21 08:39 Amlodipine Besylate (Norvasc) 10 mg HS PO 05/07/21 22:00 05/14/21 20:34 Guaifenesin (Robitussin Dm) 10 ml PRN Q4HRS PRN PO COUGH 05/07/21 23:00 Meloxicam (Mobic) 7.5 mg 1200,2100 PO 05/07/21 22:00 05/09/21 17:45 DC 05/09/21 12:33 Milnacipran HCl (Savella) 50 mg HS PO 05/07/21 23:00 05/08/21 12:09 DC 05/07/21 23:00 Sodium Chloride (Saline Mist Nasal) 1 corey PRN BID PRN NS CONGESTION 05/07/21 23:00 05/14/21 20:31 Tizanidine HCl (Zanaflex) 4 mg PRN Q8HRS PRN PO MUSCLE SPASMS 05/07/21 23:00 05/14/21 20:33 Alendronate Sodium (Fosamax) 70 mg QSU PO 05/10/21 16:00 05/10/21 15:39 Non-Formulary Medication (Menthol (Biofreeze)) 1 corey QID PRN TP MUSCLE PAIN 05/07/21 23:00 05/07/21 23:16 DC Milnacipran HCl (Savella) 100 mg DAILY PO 05/08/21 09:00 05/08/21 12:09 DC 05/08/21 08:53 Pantoprazole Sodium (Protonix) 40 mg QHS PO 05/07/21 23:00 05/14/21 20:33 Artificial Tears (Refresh Classic) 1 drop PRN QID PRN OU DRY EYE 05/07/21 23:15 05/14/21 20:32 Atorvastatin Calcium (Lipitor) 10 mg QHS PO 05/08/21 21:00 05/07/21 23:19 DC Aripiprazole (Abilify) 2 mg HS PO 05/07/21 22:00 05/09/21 18:34 DC 05/08/21 21:20 Sertraline HCl (Zoloft) 150 mg DAILY PO 05/08/21 09:00 05/08/21 12:09 DC 05/08/21 08:54 Trazodone HCl (Desyrel) 100 mg HS PO 05/07/21 23:00 05/14/21 20:32 Zolpidem Tartrate (Ambien) 5 mg PRN QHS PRN PO 2ND CHOICE INSOMNIA 05/07/21 23:00 05/14/21 20:33 Pramipexole Dihydrochloride (miraPEX) 1.5 mg TID PO 05/07/21 23:00 05/14/21 20:33 Albuterol Sulfate (Ventolin Hfa Inhaler) 1 puff PRN Q4HRS PRN INH SHORTNESS OF BREATH 05/07/21 23:00 05/14/21 20:31 Atorvastatin Calcium (Lipitor) 10 mg QHS PO 05/07/21 23:30 05/14/21 20:34 Duloxetine HCl (Cymbalta) 30 mg DAILY PO 05/09/21 09:00 05/08/21 21:40 DC Duloxetine HCl (Cymbalta) 60 mg DAILY PO 05/12/21 09:00 05/08/21 21:40 DC Venlafaxine HCl (Effexor Xr) 37.5 mg DAILY PO 05/09/21 09:00 05/14/21 08:38 Cyanocobalamin (Vitamin B-12) 1,000 mcg 1X ONCE IM 05/09/21 18:00 05/09/21 18:01 DC 05/09/21 18:17 Cyanocobalamin (Vitamin B-12) 1,000 mcg Q4WK IM 06/06/21 09:00 Ferrous Sulfate (Feosol) 325 mg BIDWMEALS PO 05/09/21 18:00 05/14/21 17:26 Ascorbic Acid (Vitamin C) 500 mg BIDWMEALS PO 05/09/21 18:00 05/14/21 17:27 Risperidone (RisperDAL) 0.5 mg QHS PO 05/09/21 21:00 05/14/21 10:54 DC 05/13/21 20:19 Mirtazapine (Remeron) 7.5 mg QHS PO 05/10/21 21:00 05/14/21 20:33 Trazodone HCl (Desyrel) 100 mg PRN QHS PRN PO 1ST CHOICE INSOMNIA 05/10/21 17:15 Oxycodone HCl (Roxicodone) 5 mg PRN Q8HRS PRN PO PAIN 05/10/21 20:00 05/14/21 21:44 Phenyleph/Shark Oil/Min Oil/Petrol (Preparation H) 1 corey PRN QID PRN RC RECTAL PAIN 05/10/21 20:00 Milnacipran HCl (Savella) 25 mg DAILY PO 05/15/21 09:00 05/14/21 11:44 DC Risperidone (RisperDAL) 0.75 mg QHS PO 05/14/21 21:00 05/14/21 20:33 Milnacipran HCl (Savella) 25 mg DAILY PO 05/14/21 12:00 05/14/21 12:00 Cetirizine HCl (ZyrTEC) 10 mg DAILY PO 05/15/21 09:00 Pseudoephedrine HCl (Sudafed 12-Hour) 120 mg BID PO 05/15/21 09:00 Current Medications Medications (Trade) Dose Ordered Sig/Noble Route PRN Reason Start Time Stop Time Status Last Admin Dose Admin Risperidone (RisperDAL) 0.75 mg QHS PO 05/14/21 21:00 05/14/21 20:33 Milnacipran HCl (Savella) 25 mg DAILY PO 05/14/21 12:00 05/14/21 12:00 I have reviewed the current psychotropics carefully including drug interactions. Risk benefit ratio favors no change other than as noted in my dictated progress note. Diagnosis: Problems: (1) Psychotic disorder (2) Anxiety disorder, unspecified (3) Major depressive disorder with psychotic features TESS SPAIN MD May 14, 2021 22:03
--- NOTE | 2021-05-14 22:33 | NUR ---
Pt sitting in the day room, playing cards with peers when approached. Pt calm, pleasant, interactive, and social. Pt reports that she was started back on a low dose of Savella today and "it's worked, I don't care how low the dose is, it's the only thing that works for me. The only thing hurting on me today is my lower legs". Pt also reports a worsening of her RLS, especially at night. Pt cooperative with assessment and compliant with medications administered whole. PRN Ambien, Zanaflex, Nasal [place], Albuterol MDI, and Refresh gtts @2029 and PRN Oxycodone administered @2144 for c/o BLE and back pain.
[2021-05-15 06:47] VITALS: BP 123/70
[2021-05-15] MEDS: PSEUDOEPHEDRINE ER 120 MG TABLET.ER. PO SCH ×2 (08:46→21:00)
[2021-05-15] MEDS: NICOTINE 21MG PATCH. TD SCH (08:46)
[2021-05-15] MEDS: PRAMIPEXOLE 0.5 MG TABLET. PO SCH ×3 (08:46→21:08)
[2021-05-15] MEDS: ASCORBIC ACID 500 MG TABLET PO SCH ×2 (08:46→17:27)
[2021-05-15] MEDS: CETIRIZINE HCL 10 MG TABLET PO SCH (08:46)
[2021-05-15] MEDS: VENLAFAXINE XR 37.5 MG CAP.ER.24H. PO SCH (08:46)
[2021-05-15] MEDS: FERROUS SULFATE 325 MG TABLET. PO SCH ×2 (08:46→17:27)
--- NOTE | 2021-05-15 08:46 | PDOC ---
Exam Note: Tomas Note: This note is a late entry for 05/13/2021 covers elements not covered in my initial note. Subjective: patient was seen individually in the evening of 05/13/2021 with Neelam MAY, discussed and reviewed the chart. The patient slept 5-1/2 hours previous night. She complains of impaired ambulation with a walker and back pain. She received Tylenol at 9.30 a.m. Review of Systems: Ambulation impaired with walker. No CV, , pulmonary, eye, ENT system symptoms on review. Mental Status Exam: The patient is reasonably oriented. Speech is coherent. Abstraction fair. Computation impaired. Language function intact. She is somewhat distractible. No suicidal or homicidal ideation. She still believes there are portals at her home and in the car but less convinced about this. She states she had a long conversation with Sandie her transfer and pumphouse operator chief and also talked to the sanitation worker cleaning machinery and is arranging for exorcism and for the clergy to come into her home post discharge to get rid of the portals. She was otherwise verbal, quite animated. No active suicidal or homicidal ideation. Attention span fair. Laboratory Data: Reviewed. Impression: Major depressive disorder with psychotic features. Psychotic disorder unspecified. Anxiety disorder unspecified. Plan: We will continue current psychotropics. We may need to increase Risperdal further depending on her psychosis. She is definitely wanting Savella, restarted at low dosage and we will restart it at 25 mg h.s. She is convinced this helps her significantly with pain and she is miserable without it. We will minimize the dosage. Assessment: Vital Signs/I&O: Vital Signs Date Time Temp Pulse Resp B/P (MAP) Pulse Ox O2 Delivery O2 Flow Rate FiO2 05/15/21 06:47 98.4 93 16 123/70 (87) 91 Room Air I & O 05/14/21 05/14/21 05/15/21 15:00 23:00 07:00 Intake Total 960 ml 720 ml Balance 960 ml 720 ml Current Medications: Meds: Current Medications Medications (Trade) Dose Ordered Sig/Noble Route PRN Reason Start Time Stop Time Status Last Admin Dose Admin Acetaminophen (Tylenol) 650 mg PRN Q6HRS PRN PO MILD PAIN / TEMP > 100.3'F 05/07/21 20:15 05/14/21 10:04 Multi-Ingredient Ointment (Analgesic [place]) 1 corey PRN QID PRN TP MUSCLE PAIN 05/07/21 20:15 05/09/21 22:35 Al Hydroxide/Mg Hydroxide (Mylanta Plus Xs) 15 ml PRN AFTMEALHC PRN PO DYSPEPSIA 05/07/21 20:15 Magnesium Hydroxide (Milk Of Magnesia) 2,400 mg PRN QHS PRN PO CONSTIPATION 05/07/21 20:15 Nicotine (Nicoderm Cq 21mg Patch) 1 patch DAILY TD 05/08/21 09:00 05/14/21 08:39 Amlodipine Besylate (Norvasc) 10 mg HS PO 05/07/21 22:00 05/14/21 20:34 Guaifenesin (Robitussin Dm) 10 ml PRN Q4HRS PRN PO COUGH 05/07/21 23:00 Meloxicam (Mobic) 7.5 mg 1200,2100 PO 05/07/21 22:00 05/09/21 17:45 DC 05/09/21 12:33 Milnacipran HCl (Savella) 50 mg HS PO 05/07/21 23:00 05/08/21 12:09 DC 05/07/21 23:00 Sodium Chloride (Saline Mist Nasal) 1 corey PRN BID PRN NS CONGESTION 05/07/21 23:00 05/14/21 20:31 Tizanidine HCl (Zanaflex) 4 mg PRN Q8HRS PRN PO MUSCLE SPASMS 05/07/21 23:00 05/14/21 20:33 Alendronate Sodium (Fosamax) 70 mg QSU PO 05/10/21 16:00 05/10/21 15:39 Non-Formulary Medication (Menthol (Biofreeze)) 1 corey QID PRN TP MUSCLE PAIN 05/07/21 23:00 05/07/21 23:16 DC Milnacipran HCl (Savella) 100 mg DAILY PO 05/08/21 09:00 05/08/21 12:09 DC 05/08/21 08:53 Pantoprazole Sodium (Protonix) 40 mg QHS PO 05/07/21 23:00 05/14/21 20:33 Artificial Tears (Refresh Classic) 1 drop PRN QID PRN OU DRY EYE 05/07/21 23:15 05/14/21 20:32 Atorvastatin Calcium (Lipitor) 10 mg QHS PO 05/08/21 21:00 05/07/21 23:19 DC Aripiprazole (Abilify) 2 mg HS PO 05/07/21 22:00 05/09/21 18:34 DC 05/08/21 21:20 Sertraline HCl (Zoloft) 150 mg DAILY PO 05/08/21 09:00 05/08/21 12:09 DC 05/08/21 08:54 Trazodone HCl (Desyrel) 100 mg HS PO 05/07/21 23:00 05/14/21 20:32 Zolpidem Tartrate (Ambien) 5 mg PRN QHS PRN PO 2ND CHOICE INSOMNIA 05/07/21 23:00 05/14/21 20:33 Pramipexole Dihydrochloride (miraPEX) 1.5 mg TID PO 05/07/21 23:00 05/14/21 20:33 Albuterol Sulfate (Ventolin Hfa Inhaler) 1 puff PRN Q4HRS PRN INH SHORTNESS OF BREATH 05/07/21 23:00 05/14/21 20:31 Atorvastatin Calcium (Lipitor) 10 mg QHS PO 05/07/21 23:30 05/14/21 20:34 Duloxetine HCl (Cymbalta) 30 mg DAILY PO 05/09/21 09:00 05/08/21 21:40 DC Duloxetine HCl (Cymbalta) 60 mg DAILY PO 05/12/21 09:00 05/08/21 21:40 DC Venlafaxine HCl (Effexor Xr) 37.5 mg DAILY PO 05/09/21 09:00 05/14/21 08:38 Cyanocobalamin (Vitamin B-12) 1,000 mcg 1X ONCE IM 05/09/21 18:00 05/09/21 18:01 DC 05/09/21 18:17 Cyanocobalamin (Vitamin B-12) 1,000 mcg Q4WK IM 06/06/21 09:00 Ferrous Sulfate (Feosol) 325 mg BIDWMEALS PO 05/09/21 18:00 05/14/21 17:26 Ascorbic Acid (Vitamin C) 500 mg BIDWMEALS PO 05/09/21 18:00 05/14/21 17:27 Risperidone (RisperDAL) 0.5 mg QHS PO 05/09/21 21:00 05/14/21 10:54 DC 05/13/21 20:19 Mirtazapine (Remeron) 7.5 mg QHS PO 05/10/21 21:00 05/14/21 20:33 Trazodone HCl (Desyrel) 100 mg PRN QHS PRN PO 1ST CHOICE INSOMNIA 05/10/21 17:15 Oxycodone HCl (Roxicodone) 5 mg PRN Q8HRS PRN PO PAIN 05/10/21 20:00 05/14/21 21:44 Phenyleph/Shark Oil/Min Oil/Petrol (Preparation H) 1 corey PRN QID PRN RC RECTAL PAIN 05/10/21 20:00 Milnacipran HCl (Savella) 25 mg DAILY PO 05/15/21 09:00 05/14/21 11:44 DC Risperidone (RisperDAL) 0.75 mg QHS PO 05/14/21 21:00 05/14/21 20:33 Milnacipran HCl (Savella) 25 mg DAILY PO 05/14/21 12:00 05/14/21 12:00 Cetirizine HCl (ZyrTEC) 10 mg DAILY PO 05/15/21 09:00 Pseudoephedrine HCl (Sudafed 12-Hour) 120 mg BID PO 05/15/21 09:00 Current Medications Medications (Trade) Dose Ordered Sig/Noble Route PRN Reason Start Time Stop Time Status Last Admin Dose Admin Risperidone (RisperDAL) 0.75 mg QHS PO 05/14/21 21:00 05/14/21 20:33 Milnacipran HCl (Savella) 25 mg DAILY PO 05/14/21 12:00 05/14/21 12:00 I have reviewed the current psychotropics carefully including drug interactions. Risk benefit ratio favors no change other than as noted in my dictated progress note. Diagnosis: Problems: (1) Psychotic disorder (2) Anxiety disorder, unspecified (3) Major depressive disorder with psychotic features TESS SPAIN MD May 15, 2021 08:46
[2021-05-15] MEDS: MILNACIPRAN 50 MG TABLET PO SCH (08:49)
[2021-05-15] MEDS ORDERED: MILNACIPRAN 50 MG TABLET PO SCH (09:00)
--- NOTE | 2021-05-15 09:18 | PDOC ---
Exam Note: Tomas Note: This note is a late entry for 05/14/2021 covers elements not covered in my initial note. Subjective: The patient was seen individually in the morning of 05/14/2021 for a treatment team meeting with Ursula Novoa, Talia Garcia (director of social services), Shilpa, activity therapy and Neelam MAY, discussed and reviewed the chart. The patient slept 7-1/4 hours previous night. She overall has been doing little better but states she is in significant pain wants to restart Savella as she feels this helped her very much and we will restart at 25 mg h.s. By the time I met with her in the evening she said her pain was somewhat better. She is also wanting some [id number] medication for her gum inflammation. I will defer this to social service staff to coordinate. She states she has also talked to Sandie her caregiver at home who is coordinating with clergy to be available when the patient returns home. She seemed accepting of this. Review of Systems: Ambulation impaired with walker. No CV, , pulmonary, eye, ENT system symptoms on review. Mental Status Exam: The patient is reasonably oriented. Speech is coherent. Abstraction fair. Computation impaired. Language function intact. Attention span fair. No active suicidal or homicidal ideation. Laboratory Data: Reviewed. Impression: Major depressive disorder with psychotic features. Psychotic disorder unspecified. Anxiety disorder unspecified. Plan: Increase Risperdal from 0.5 mg h.s. to 0.75 mg p.o. h.s. Maintain rest of the psychotropics unchanged. Assessment: Vital Signs/I&O: Vital Signs Date Time Temp Pulse Resp B/P (MAP) Pulse Ox O2 Delivery O2 Flow Rate FiO2 05/15/21 06:47 98.4 93 16 123/70 (87) 91 Room Air I & O 05/14/21 05/14/21 05/15/21 15:00 23:00 07:00 Intake Total 960 ml 720 ml Balance 960 ml 720 ml Current Medications: Meds: Current Medications Medications (Trade) Dose Ordered Sig/Noble Route PRN Reason Start Time Stop Time Status Last Admin Dose Admin Acetaminophen (Tylenol) 650 mg PRN Q6HRS PRN PO MILD PAIN / TEMP > 100.3'F 05/07/21 20:15 05/14/21 10:04 Multi-Ingredient Ointment (Analgesic [place]) 1 corey PRN QID PRN TP MUSCLE PAIN 05/07/21 20:15 05/09/21 22:35 Al Hydroxide/Mg Hydroxide (Mylanta Plus Xs) 15 ml PRN AFTMEALHC PRN PO DYSPEPSIA 05/07/21 20:15 Magnesium Hydroxide (Milk Of Magnesia) 2,400 mg PRN QHS PRN PO CONSTIPATION 05/07/21 20:15 Nicotine (Nicoderm Cq 21mg Patch) 1 patch DAILY TD 05/08/21 09:00 05/15/21 08:46 Amlodipine Besylate (Norvasc) 10 mg HS PO 05/07/21 22:00 05/14/21 20:34 Guaifenesin (Robitussin Dm) 10 ml PRN Q4HRS PRN PO COUGH 05/07/21 23:00 Meloxicam (Mobic) 7.5 mg 1200,2100 PO 05/07/21 22:00 05/09/21 17:45 DC 05/09/21 12:33 Milnacipran HCl (Savella) 50 mg HS PO 05/07/21 23:00 05/08/21 12:09 DC 05/07/21 23:00 Sodium Chloride (Saline Mist Nasal) 1 corey PRN BID PRN NS CONGESTION 05/07/21 23:00 05/14/21 20:31 Tizanidine HCl (Zanaflex) 4 mg PRN Q8HRS PRN PO MUSCLE SPASMS 05/07/21 23:00 05/14/21 20:33 Alendronate Sodium (Fosamax) 70 mg QSU PO 05/10/21 16:00 05/10/21 15:39 Non-Formulary Medication (Menthol (Biofreeze)) 1 corey QID PRN TP MUSCLE PAIN 05/07/21 23:00 05/07/21 23:16 DC Milnacipran HCl (Savella) 100 mg DAILY PO 05/08/21 09:00 05/08/21 12:09 DC 05/08/21 08:53 Pantoprazole Sodium (Protonix) 40 mg QHS PO 05/07/21 23:00 05/14/21 20:33 Artificial Tears (Refresh Classic) 1 drop PRN QID PRN OU DRY EYE 05/07/21 23:15 05/14/21 20:32 Atorvastatin Calcium (Lipitor) 10 mg QHS PO 05/08/21 21:00 05/07/21 23:19 DC Aripiprazole (Abilify) 2 mg HS PO 05/07/21 22:00 05/09/21 18:34 DC 05/08/21 21:20 Sertraline HCl (Zoloft) 150 mg DAILY PO 05/08/21 09:00 05/08/21 12:09 DC 05/08/21 08:54 Trazodone HCl (Desyrel) 100 mg HS PO 05/07/21 23:00 05/14/21 20:32 Zolpidem Tartrate (Ambien) 5 mg PRN QHS PRN PO 2ND CHOICE INSOMNIA 05/07/21 23:00 05/14/21 20:33 Pramipexole Dihydrochloride (miraPEX) 1.5 mg TID PO 05/07/21 23:00 05/15/21 08:46 Albuterol Sulfate (Ventolin Hfa Inhaler) 1 puff PRN Q4HRS PRN INH SHORTNESS OF BREATH 05/07/21 23:00 05/14/21 20:31 Atorvastatin Calcium (Lipitor) 10 mg QHS PO 05/07/21 23:30 05/14/21 20:34 Duloxetine HCl (Cymbalta) 30 mg DAILY PO 05/09/21 09:00 05/08/21 21:40 DC Duloxetine HCl (Cymbalta) 60 mg DAILY PO 05/12/21 09:00 05/08/21 21:40 DC Venlafaxine HCl (Effexor Xr) 37.5 mg DAILY PO 05/09/21 09:00 05/15/21 08:46 Cyanocobalamin (Vitamin B-12) 1,000 mcg 1X ONCE IM 05/09/21 18:00 05/09/21 18:01 DC 05/09/21 18:17 Cyanocobalamin (Vitamin B-12) 1,000 mcg Q4WK IM 06/06/21 09:00 Ferrous Sulfate (Feosol) 325 mg BIDWMEALS PO 05/09/21 18:00 05/15/21 08:46 Ascorbic Acid (Vitamin C) 500 mg BIDWMEALS PO 05/09/21 18:00 05/15/21 08:46 Risperidone (RisperDAL) 0.5 mg QHS PO 05/09/21 21:00 05/14/21 10:54 DC 05/13/21 20:19 Mirtazapine (Remeron) 7.5 mg QHS PO 05/10/21 21:00 05/14/21 20:33 Trazodone HCl (Desyrel) 100 mg PRN QHS PRN PO 1ST CHOICE INSOMNIA 05/10/21 17:15 Oxycodone HCl (Roxicodone) 5 mg PRN Q8HRS PRN PO PAIN 05/10/21 20:00 05/14/21 21:44 Phenyleph/Shark Oil/Min Oil/Petrol (Preparation H) 1 corey PRN QID PRN RC RECTAL PAIN 05/10/21 20:00 Milnacipran HCl (Savella) 25 mg DAILY PO 05/15/21 09:00 05/14/21 11:44 DC Risperidone (RisperDAL) 0.75 mg QHS PO 05/14/21 21:00 05/14/21 20:33 Milnacipran HCl (Savella) 25 mg DAILY PO 05/14/21 12:00 05/15/21 08:49 Cetirizine HCl (ZyrTEC) 10 mg DAILY PO 05/15/21 09:00 05/15/21 08:46 Pseudoephedrine HCl (Sudafed 12-Hour) 120 mg BID PO 05/15/21 09:00 05/15/21 08:46 Current Medications Medications (Trade) Dose Ordered Sig/Noble Route PRN Reason Start Time Stop Time Status Last Admin Dose Admin Risperidone (RisperDAL) 0.75 mg QHS PO 05/14/21 21:00 05/14/21 20:33 Milnacipran HCl (Savella) 25 mg DAILY PO 05/14/21 12:00 05/15/21 08:49 Cetirizine HCl (ZyrTEC) 10 mg DAILY PO 05/15/21 09:00 05/15/21 08:46 Pseudoephedrine HCl (Sudafed 12-Hour) 120 mg BID PO 05/15/21 09:00 7/23/21 08:46 I have reviewed the current psychotropics carefully including drug interactions. Risk benefit ratio favors no change other than as noted in my dictated progress note. Diagnosis: Problems: (1) Psychotic disorder (2) Anxiety disorder, unspecified (3) Major depressive disorder with psychotic features TESS SPAIN MD May 15, 2021 09:18
--- NOTE | 2021-05-15 09:45 | NUR ---
SW received a faxed confirmation that pt would be approved from 05/14 through 05/17 with an update on Friday 05/18.
[2021-05-15] MEDS: ALBUTEROL SULFATE 8GM INHALER. INH PRN (10:59)
[2021-05-15] MEDS: ACETAMINOPHEN 325 MG TABLET PO PRN (11:00)
[2021-05-15 16:04] VITALS: BP 130/75
[2021-05-15] MEDS: rOPINIRole 0.25 MG TABLET. PO SCH (21:08)
[2021-05-15] MEDS: MIRTAZAPINE 7.5 MG TABLET. PO SCH (21:08)
[2021-05-15] MEDS: risperiDONE 0.25 MG TABLET. PO SCH (21:09)
[2021-05-15] MEDS: ATORVASTATIN CALCIUM 10 MG TABLET. PO SCH (21:09)
[2021-05-15] MEDS: amLODIPine BESYLATE 10 MG TABLET PO SCH (21:10)
[2021-05-15] MEDS: PANTOPRAZOLE 40 MG TABLET. PO SCH (21:10)
[2021-05-15] MEDS: traZODone 100 MG TABLET. PO SCH (21:10)
[2021-05-15] MEDS: oxyCODONE IR 5 MG TABLET PO PRN (21:30)
--- NOTE | 2021-05-15 22:09 | PDOC ---
Exam Note: Tomas Note: Please also refer to the separate dictated note~for this date of service dictated separately.~Patient seen individually. Discussed the patient with Nursing staff reviewed the chart.~Reviewed interim history and current functioning. Reviewed vital signs,~Labs/ Radiology~and current medications noted below. Continue current treatment with the changes noted in the dictated addendum note Assessment: Vital Signs/I&O: Vital Signs Date Time Temp Pulse Resp B/P (MAP) Pulse Ox O2 Delivery O2 Flow Rate FiO2 05/15/21 21:30 16 Room Air 05/15/21 21:10 80 130/75 05/15/21 16:04 97.8 94 I & O 05/14/21 05/14/21 05/15/21 14:59 22:59 06:59 Intake Total 960 ml 720 ml Balance 960 ml 720 ml Current Medications: Meds: Current Medications Medications (Trade) Dose Ordered Sig/Noble Route PRN Reason Start Time Stop Time Status Last Admin Dose Admin Acetaminophen (Tylenol) 650 mg PRN Q6HRS PRN PO MILD PAIN / TEMP > 100.3'F 05/07/21 20:15 05/15/21 11:00 Multi-Ingredient Ointment (Analgesic [place]) 1 corey PRN QID PRN TP MUSCLE PAIN 05/07/21 20:15 05/09/21 22:35 Al Hydroxide/Mg Hydroxide (Mylanta Plus Xs) 15 ml PRN AFTMEALHC PRN PO DYSPEPSIA 05/07/21 20:15 Magnesium Hydroxide (Milk Of Magnesia) 2,400 mg PRN QHS PRN PO CONSTIPATION 05/07/21 20:15 Nicotine (Nicoderm Cq 21mg Patch) 1 patch DAILY TD 05/08/21 09:00 05/15/21 08:46 Amlodipine Besylate (Norvasc) 10 mg HS PO 05/07/21 22:00 05/15/21 21:10 Guaifenesin (Robitussin Dm) 10 ml PRN Q4HRS PRN PO COUGH 05/07/21 23:00 Meloxicam (Mobic) 7.5 mg 1200,2100 PO 05/07/21 22:00 05/09/21 17:45 DC 05/09/21 12:33 Milnacipran HCl (Savella) 50 mg HS PO 05/07/21 23:00 05/08/21 12:09 DC 05/07/21 23:00 Sodium Chloride (Saline Mist Nasal) 1 corey PRN BID PRN NS CONGESTION 05/07/21 23:00 05/14/21 20:31 Tizanidine HCl (Zanaflex) 4 mg PRN Q8HRS PRN PO MUSCLE SPASMS 05/07/21 23:00 05/14/21 20:33 Alendronate Sodium (Fosamax) 70 mg QSU PO 05/10/21 16:00 05/10/21 15:39 Non-Formulary Medication (Menthol (Biofreeze)) 1 corey QID PRN TP MUSCLE PAIN 05/07/21 23:00 05/07/21 23:16 DC Milnacipran HCl (Savella) 100 mg DAILY PO 05/08/21 09:00 05/08/21 12:09 DC 05/08/21 08:53 Pantoprazole Sodium (Protonix) 40 mg QHS PO 05/07/21 23:00 05/15/21 21:10 Artificial Tears (Refresh Classic) 1 drop PRN QID PRN OU DRY EYE 05/07/21 23:15 05/14/21 20:32 Atorvastatin Calcium (Lipitor) 10 mg QHS PO 05/08/21 21:00 05/07/21 23:19 DC Aripiprazole (Abilify) 2 mg HS PO 05/07/21 22:00 05/09/21 18:34 DC 05/08/21 21:20 Sertraline HCl (Zoloft) 150 mg DAILY PO 05/08/21 09:00 05/08/21 12:09 DC 05/08/21 08:54 Trazodone HCl (Desyrel) 100 mg HS PO 05/07/21 23:00 05/15/21 21:10 Zolpidem Tartrate (Ambien) 5 mg PRN QHS PRN PO 2ND CHOICE INSOMNIA 05/07/21 23:00 05/14/21 20:33 Pramipexole Dihydrochloride (miraPEX) 1.5 mg TID PO 05/07/21 23:00 05/15/21 21:08 Albuterol Sulfate (Ventolin Hfa Inhaler) 1 puff PRN Q4HRS PRN INH SHORTNESS OF BREATH 05/07/21 23:00 05/15/21 10:59 Atorvastatin Calcium (Lipitor) 10 mg QHS PO 05/07/21 23:30 05/15/21 21:09 Duloxetine HCl (Cymbalta) 30 mg DAILY PO 05/09/21 09:00 05/08/21 21:40 DC Duloxetine HCl (Cymbalta) 60 mg DAILY PO 05/12/21 09:00 05/08/21 21:40 DC Venlafaxine HCl (Effexor Xr) 37.5 mg DAILY PO 05/09/21 09:00 05/15/21 08:46 Cyanocobalamin (Vitamin B-12) 1,000 mcg 1X ONCE IM 05/09/21 18:00 05/09/21 18:01 DC 05/09/21 18:17 Cyanocobalamin (Vitamin B-12) 1,000 mcg Q4WK IM 06/06/21 09:00 Ferrous Sulfate (Feosol) 325 mg BIDWMEALS PO 05/09/21 18:00 05/15/21 17:27 Ascorbic Acid (Vitamin C) 500 mg BIDWMEALS PO 05/09/21 18:00 05/15/21 17:27 Risperidone (RisperDAL) 0.5 mg QHS PO 05/09/21 21:00 05/14/21 10:54 DC 05/13/21 20:19 Mirtazapine (Remeron) 7.5 mg QHS PO 05/10/21 21:00 05/15/21 21:08 Trazodone HCl (Desyrel) 100 mg PRN QHS PRN PO 1ST CHOICE INSOMNIA 05/10/21 17:15 Oxycodone HCl (Roxicodone) 5 mg PRN Q8HRS PRN PO PAIN 05/10/21 20:00 05/15/21 21:30 Phenyleph/Shark Oil/Min Oil/Petrol (Preparation H) 1 corey PRN QID PRN RC RECTAL PAIN 05/10/21 20:00 Milnacipran HCl (Savella) 25 mg DAILY PO 05/15/21 09:00 05/14/21 11:44 DC Risperidone (RisperDAL) 0.75 mg QHS PO 05/14/21 21:00 05/15/21 21:09 Milnacipran HCl (Savella) 25 mg DAILY PO 05/14/21 12:00 05/15/21 08:49 Cetirizine HCl (ZyrTEC) 10 mg DAILY PO 05/15/21 09:00 05/15/21 08:46 Pseudoephedrine HCl (Sudafed 12-Hour) 120 mg BID PO 05/15/21 09:00 05/15/21 21:00 Ropinirole HCl (Requip) 0.25 mg HS PO 05/15/21 21:00 05/15/21 21:08 Current Medications Medications (Trade) Dose Ordered Sig/Noble Route PRN Reason Start Time Stop Time Status Last Admin Dose Admin Cetirizine HCl (ZyrTEC) 10 mg DAILY PO 05/15/21 09:00 05/15/21 08:46 Pseudoephedrine HCl (Sudafed 12-Hour) 120 mg BID PO 05/15/21 09:00 05/15/21 21:00 Ropinirole HCl (Requip) 0.25 mg HS PO 05/15/21 21:00 05/15/21 21:08 I have reviewed the current psychotropics carefully including drug interactions. Risk benefit ratio favors no change other than as noted in my dictated progress note. Diagnosis: Problems: (1) Psychotic disorder (2) Anxiety disorder, unspecified (3) Major depressive disorder with psychotic features TESS SPAIN MD May 15, 2021 22:09
--- NOTE | 2021-05-16 04:25 | NUR ---
Patient stayed in the day tucker at the beginning of shift playing cards with peers for a bit and then switched to playing some games on an ipad. She was pleasant and interacted with staff and peers. Lissa took all her night medications and requested a pain pill, after which she stayed in the day tucker for another hour before retiring to her room. She stayed awake and wandered between the hallways and her room for almost half of the night; at one point she requested for her inhaler stating she was having some difficulties breathing. Her SpO2 was at 98% on room air. Inhaler was provided and she stayed in the hallway for a little bit more before finally retiring to her bed where she remained resting with eyes closed, breathing normally.
[2021-05-16 05:20] VITALS: BP 100/57
[2021-05-16] MEDS: ASCORBIC ACID 500 MG TABLET PO SCH ×2 (08:08→15:51)
[2021-05-16] MEDS: FERROUS SULFATE 325 MG TABLET. PO SCH ×2 (08:08→15:50)
[2021-05-16] MEDS: CETIRIZINE HCL 10 MG TABLET PO SCH (08:08)
[2021-05-16] MEDS: VENLAFAXINE XR 37.5 MG CAP.ER.24H. PO SCH (08:08)
[2021-05-16] MEDS: PRAMIPEXOLE 0.5 MG TABLET. PO SCH ×3 (08:08→20:17)
[2021-05-16] MEDS: MILNACIPRAN 50 MG TABLET PO SCH (08:09)
[2021-05-16] MEDS: PSEUDOEPHEDRINE ER 120 MG TABLET.ER. PO SCH ×2 (08:09→20:20)
[2021-05-16] MEDS: ACETAMINOPHEN 325 MG TABLET PO PRN (08:10)
[2021-05-16] MEDS: NICOTINE 21MG PATCH. TD SCH (09:00)
[2021-05-16] MEDS: ALBUTEROL SULFATE 8GM INHALER. INH PRN (10:23)
[2021-05-16] MEDS: SODIUM CHLORIDE 0.65% NASAL SPRAY 45ML BOTTLE. NS PRN (10:23)
--- NOTE | 2021-05-16 10:24 | NUR ---
Pt is appropriate with her interactions with others this shift. She denies SI/HI/VH/AH/delusions. She remains very somatic and high maintenance; reporting 10/10 pain and making various requests for multiple PRN medications throughout the morning. PRN Acetaminophen, PRN nasal saline spray, PRN Albuterol, and PRN polyvinyl eye solution have all been administered at her request. She reports no relief from Acetaminophen and would like her PRN Roxicodone, however she feels as if a 5 mg tablet is "too much" and would like the order changed to 1/2 tab. Waiting to speak with Dr Laureano to request order change. She is compliant with whole medications, however she has c/o ulcers/GERD impacting her ability to swallow whole tablets. Her attempts to swallow were accompanied with grunting, groaning, straining, and c/o pain. She states the only way for medications to be comfortably swallowed is if she takes the pills with pop "because the carbonation helps to push it down." This difficulty swallowing and pop accommodation has not been observed during meals while swallowing food. She remains interactive with others, friendly and outgoing. No aggressive behaviors at this time. She states she has not been experiencing hallucinations in any form so far during shift. Plan of care continues will pass to next shift.
[2021-05-16 15:53] VITALS: BP 164/66
[2021-05-16] MEDS: MIRTAZAPINE 7.5 MG TABLET. PO SCH (20:18)
[2021-05-16] MEDS: traZODone 100 MG TABLET. PO SCH (20:19)
[2021-05-16] MEDS: PANTOPRAZOLE 40 MG TABLET. PO SCH (20:19)
[2021-05-16] MEDS: risperiDONE 0.25 MG TABLET. PO SCH (20:19)
[2021-05-16] MEDS: rOPINIRole 0.25 MG TABLET. PO SCH (20:20)
[2021-05-16] MEDS: amLODIPine BESYLATE 10 MG TABLET PO SCH (20:21)
[2021-05-16] MEDS: ATORVASTATIN CALCIUM 10 MG TABLET. PO SCH (20:21)
[2021-05-16] MEDS: oxyCODONE IR 5 MG TABLET PO PRN (20:22)
--- NOTE | 2021-05-16 22:03 | PDOC ---
Exam Note: Tomas Note: Please also refer to the separate dictated note~for this date of service dictated separately.~Patient seen individually. Discussed the patient with Nursing staff reviewed the chart.~Reviewed interim history and current functioning. Reviewed vital signs,~Labs/ Radiology~and current medications noted below. Continue current treatment with the changes noted in the dictated addendum note Assessment: Vital Signs/I&O: Vital Signs Date Time Temp Pulse Resp B/P (MAP) Pulse Ox O2 Delivery O2 Flow Rate FiO2 05/16/21 20:22 93 05/16/21 20:21 96 164/66 05/16/21 15:53 97.9 16 05/15/21 22:00 Room Air I & O 05/15/21 05/15/21 05/16/21 15:00 23:00 07:00 Intake Total 1460 ml 960 ml Balance 1460 ml 960 ml Current Medications: Meds: Current Medications Medications (Trade) Dose Ordered Sig/Noble Route PRN Reason Start Time Stop Time Status Last Admin Dose Admin Acetaminophen (Tylenol) 650 mg PRN Q6HRS PRN PO MILD PAIN / TEMP > 100.3'F 05/07/21 20:15 05/16/21 08:10 Multi-Ingredient Ointment (Analgesic [place]) 1 corey PRN QID PRN TP MUSCLE PAIN 05/07/21 20:15 05/09/21 22:35 Al Hydroxide/Mg Hydroxide (Mylanta Plus Xs) 15 ml PRN AFTMEALHC PRN PO DYSPEPSIA 05/07/21 20:15 Magnesium Hydroxide (Milk Of Magnesia) 2,400 mg PRN QHS PRN PO CONSTIPATION 05/07/21 20:15 Nicotine (Nicoderm Cq 21mg Patch) 1 patch DAILY TD 05/08/21 09:00 05/16/21 09:00 Amlodipine Besylate (Norvasc) 10 mg HS PO 05/07/21 22:00 05/16/21 20:21 Guaifenesin (Robitussin Dm) 10 ml PRN Q4HRS PRN PO COUGH 05/07/21 23:00 Meloxicam (Mobic) 7.5 mg 1200,2100 PO 05/07/21 22:00 05/09/21 17:45 DC 05/09/21 12:33 Milnacipran HCl (Savella) 50 mg HS PO 05/07/21 23:00 05/08/21 12:09 DC 05/07/21 23:00 Sodium Chloride (Saline Mist Nasal) 1 corey PRN BID PRN NS CONGESTION 05/07/21 23:00 05/16/21 10:23 Tizanidine HCl (Zanaflex) 4 mg PRN Q8HRS PRN PO MUSCLE SPASMS 05/07/21 23:00 05/14/21 20:33 Alendronate Sodium (Fosamax) 70 mg QSU PO 05/10/21 16:00 05/10/21 15:39 Non-Formulary Medication (Menthol (Biofreeze)) 1 corey QID PRN TP MUSCLE PAIN 05/07/21 23:00 05/07/21 23:16 DC Milnacipran HCl (Savella) 100 mg DAILY PO 05/08/21 09:00 05/08/21 12:09 DC 05/08/21 08:53 Pantoprazole Sodium (Protonix) 40 mg QHS PO 05/07/21 23:00 05/16/21 20:19 Artificial Tears (Refresh Classic) 1 drop PRN QID PRN OU DRY EYE 05/07/21 23:15 05/14/21 20:32 Atorvastatin Calcium (Lipitor) 10 mg QHS PO 05/08/21 21:00 05/07/21 23:19 DC Aripiprazole (Abilify) 2 mg HS PO 05/07/21 22:00 05/09/21 18:34 DC 05/08/21 21:20 Sertraline HCl (Zoloft) 150 mg DAILY PO 05/08/21 09:00 05/08/21 12:09 DC 05/08/21 08:54 Trazodone HCl (Desyrel) 100 mg HS PO 05/07/21 23:00 05/16/21 20:19 Zolpidem Tartrate (Ambien) 5 mg PRN QHS PRN PO 2ND CHOICE INSOMNIA 05/07/21 23:00 05/14/21 20:33 Pramipexole Dihydrochloride (miraPEX) 1.5 mg TID PO 05/07/21 23:00 05/16/21 20:17 Albuterol Sulfate (Ventolin Hfa Inhaler) 1 puff PRN Q4HRS PRN INH SHORTNESS OF BREATH 05/07/21 23:00 05/16/21 10:23 Atorvastatin Calcium (Lipitor) 10 mg QHS PO 05/07/21 23:30 05/16/21 20:21 Duloxetine HCl (Cymbalta) 30 mg DAILY PO 05/09/21 09:00 05/08/21 21:40 DC Duloxetine HCl (Cymbalta) 60 mg DAILY PO 05/12/21 09:00 05/08/21 21:40 DC Venlafaxine HCl (Effexor Xr) 37.5 mg DAILY PO 05/09/21 09:00 05/16/21 08:08 Cyanocobalamin (Vitamin B-12) 1,000 mcg 1X ONCE IM 05/09/21 18:00 05/09/21 18:01 DC 05/09/21 18:17 Cyanocobalamin (Vitamin B-12) 1,000 mcg Q4WK IM 06/06/21 09:00 Ferrous Sulfate (Feosol) 325 mg BIDWMEALS PO 05/09/21 18:00 05/16/21 15:50 Ascorbic Acid (Vitamin C) 500 mg BIDWMEALS PO 05/09/21 18:00 05/16/21 15:51 Risperidone (RisperDAL) 0.5 mg QHS PO 05/09/21 21:00 05/14/21 10:54 DC 05/13/21 20:19 Mirtazapine (Remeron) 7.5 mg QHS PO 05/10/21 21:00 05/16/21 20:18 Trazodone HCl (Desyrel) 100 mg PRN QHS PRN PO 1ST CHOICE INSOMNIA 05/10/21 17:15 Oxycodone HCl (Roxicodone) 5 mg PRN Q8HRS PRN PO PAIN 05/10/21 20:00 05/16/21 20:22 Phenyleph/Shark Oil/Min Oil/Petrol (Preparation H) 1 corey PRN QID PRN RC RECTAL PAIN 05/10/21 20:00 Milnacipran HCl (Savella) 25 mg DAILY PO 05/15/21 09:00 05/14/21 11:44 DC Risperidone (RisperDAL) 0.75 mg QHS PO 05/14/21 21:00 05/16/21 20:19 Milnacipran HCl (Savella) 25 mg DAILY PO 05/14/21 12:00 05/16/21 08:09 Cetirizine HCl (ZyrTEC) 10 mg DAILY PO 05/15/21 09:00 05/16/21 08:08 Pseudoephedrine HCl (Sudafed 12-Hour) 120 mg BID PO 05/15/21 09:00 05/16/21 20:20 Ropinirole HCl (Requip) 0.25 mg HS PO 05/15/21 21:00 05/16/21 20:20 I have reviewed the current psychotropics carefully including drug interactions. Risk benefit ratio favors no change other than as noted in my dictated progress note. Diagnosis: Problems: (1) Psychotic disorder (2) Anxiety disorder, unspecified (3) Major depressive disorder with psychotic features TESS SPAIN MD May 16, 2021 22:02
--- NOTE | 2021-05-16 23:21 | NUR ---
Patient located in the day room for assessments and medication administration. She is in pleasant spirits. Interactive and appropriate with staff and peers. She has not voiced any somatic complaints so far this shift. Denies any hallucinations or delusions. She complained of pain in legs and back 10/10 and requested PRN Oxycodone, which she received with his HS meds. Patient appears to be sleeping comfortably at present time. Will continue to monitor.
[2021-05-17 06:23] VITALS: BP 149/83
--- NOTE | 2021-05-17 07:44 | PDOC ---
Exam Note: Tomas Note: This note is a late entry for 05/15/2021 covers elements not covered in my initial note. Subjective: The patient was reviewed on telehealth rounds on 05/15/2021 due to the COVID-19 pandemic. There have been 3 patients on the unit that have turned up positive today, 05/15 and they are being transitioned to the [facility] floor per Dr. Laureano. There have also been 2 staff members that have turned up positive for COVID-19 and all the patients are going to be tested weekly for the COVID-19 along with every staff member going forward. I had not had the opportunity to be tested myself and will await completing this before considering [id number] rounds on the unit. Discussed with Tomer MAY and reviewed the chart. The patient slept 5-1/4 hours previous night. She complains of restless legs symptoms and was started on ReQuip per Dr. Laureano. She has been pleasant, cooperative. Denies sensing any portals on the unit. Review of Systems: Ambulation impaired with walker. No CV, , pulmonary, eye, ENT system symptoms on review. Does complain of significant pain states pain is 9 on a scale of 01-10. Mental Status Exam: The patient is reasonably oriented. Speech is coherent. Abstraction fair. Computation impaired. Language function intact. Attention span fair. No active suicidal or homicidal ideation. Laboratory Data: Reviewed. Impression: Major depressive disorder with psychotic features. Psychotic disorder unspecified. Anxiety disorder unspecified. Plan: Maintain rest of the psychotropics unchanged. Assessment: Vital Signs/I&O: Vital Signs Date Time Temp Pulse Resp B/P (MAP) Pulse Ox O2 Delivery O2 Flow Rate FiO2 05/17/21 06:23 97.2 95 20 149/83 (105) 95 05/15/21 22:00 Room Air I & O 05/16/21 05/16/21 05/17/21 15:00 23:00 07:00 Intake Total 720 ml 720 ml Balance 720 ml 720 ml Current Medications: Meds: Current Medications Medications (Trade) Dose Ordered Sig/Noble Route PRN Reason Start Time Stop Time Status Last Admin Dose Admin Acetaminophen (Tylenol) 650 mg PRN Q6HRS PRN PO MILD PAIN / TEMP > 100.3'F 05/07/21 20:15 05/16/21 08:10 Multi-Ingredient Ointment (Analgesic Adena) 1 corey PRN QID PRN TP MUSCLE PAIN 05/07/21 20:15 05/09/21 22:35 Al Hydroxide/Mg Hydroxide (Mylanta Plus Xs) 15 ml PRN AFTMEALHC PRN PO DYSPEPSIA 05/07/21 20:15 Magnesium Hydroxide (Milk Of Magnesia) 2,400 mg PRN QHS PRN PO CONSTIPATION 05/07/21 20:15 Nicotine (Nicoderm Cq 21mg Patch) 1 patch DAILY TD 05/08/21 09:00 05/16/21 09:00 Amlodipine Besylate (Norvasc) 10 mg HS PO 05/07/21 22:00 05/16/21 20:21 Guaifenesin (Robitussin Dm) 10 ml PRN Q4HRS PRN PO COUGH 05/07/21 23:00 Meloxicam (Mobic) 7.5 mg 1200,2100 PO 05/07/21 22:00 05/09/21 17:45 DC 05/09/21 12:33 Milnacipran HCl (Savella) 50 mg HS PO 05/07/21 23:00 05/08/21 12:09 DC 05/07/21 23:00 Sodium Chloride (Saline Mist Nasal) 1 corey PRN BID PRN NS CONGESTION 05/07/21 23:00 05/16/21 10:23 Tizanidine HCl (Zanaflex) 4 mg PRN Q8HRS PRN PO MUSCLE SPASMS 05/07/21 23:00 05/14/21 20:33 Alendronate Sodium (Fosamax) 70 mg QSU PO 05/10/21 16:00 05/10/21 15:39 Non-Formulary Medication (Menthol (Biofreeze)) 1 corey QID PRN TP MUSCLE PAIN 05/07/21 23:00 05/07/21 23:16 DC Milnacipran HCl (Savella) 100 mg DAILY PO 05/08/21 09:00 05/08/21 12:09 DC 05/08/21 08:53 Pantoprazole Sodium (Protonix) 40 mg QHS PO 05/07/21 23:00 05/16/21 20:19 Artificial Tears (Refresh Classic) 1 drop PRN QID PRN OU DRY EYE 05/07/21 23:15 05/14/21 20:32 Atorvastatin Calcium (Lipitor) 10 mg QHS PO 05/08/21 21:00 05/07/21 23:19 DC Aripiprazole (Abilify) 2 mg HS PO 05/07/21 22:00 05/09/21 18:34 DC 05/08/21 21:20 Sertraline HCl (Zoloft) 150 mg DAILY PO 05/08/21 09:00 05/08/21 12:09 DC 05/08/21 08:54 Trazodone HCl (Desyrel) 100 mg HS PO 05/07/21 23:00 05/16/21 20:19 Zolpidem Tartrate (Ambien) 5 mg PRN QHS PRN PO 2ND CHOICE INSOMNIA 05/07/21 23:00 05/14/21 20:33 Pramipexole Dihydrochloride (miraPEX) 1.5 mg TID PO 05/07/21 23:00 05/16/21 20:17 Albuterol Sulfate (Ventolin Hfa Inhaler) 1 puff PRN Q4HRS PRN INH SHORTNESS OF BREATH 05/07/21 23:00 05/16/21 10:23 Atorvastatin Calcium (Lipitor) 10 mg QHS PO 05/07/21 23:30 05/16/21 20:21 Duloxetine HCl (Cymbalta) 30 mg DAILY PO 05/09/21 09:00 05/08/21 21:40 DC Duloxetine HCl (Cymbalta) 60 mg DAILY PO 05/12/21 09:00 05/08/21 21:40 DC Venlafaxine HCl (Effexor Xr) 37.5 mg DAILY PO 05/09/21 09:00 05/16/21 08:08 Cyanocobalamin (Vitamin B-12) 1,000 mcg 1X ONCE IM 05/09/21 18:00 05/09/21 18:01 DC 05/09/21 18:17 Cyanocobalamin (Vitamin B-12) 1,000 mcg Q4WK IM 06/06/21 09:00 Ferrous Sulfate (Feosol) 325 mg BIDWMEALS PO 05/09/21 18:00 05/16/21 15:50 Ascorbic Acid (Vitamin C) 500 mg BIDWMEALS PO 05/09/21 18:00 05/16/21 15:51 Risperidone (RisperDAL) 0.5 mg QHS PO 05/09/21 21:00 05/14/21 10:54 DC 05/13/21 20:19 Mirtazapine (Remeron) 7.5 mg QHS PO 05/10/21 21:00 05/16/21 20:18 Trazodone HCl (Desyrel) 100 mg PRN QHS PRN PO 1ST CHOICE INSOMNIA 05/10/21 17:15 Oxycodone HCl (Roxicodone) 5 mg PRN Q8HRS PRN PO PAIN 05/10/21 20:00 05/16/21 20:22 Phenyleph/Shark Oil/Min Oil/Petrol (Preparation H) 1 corey PRN QID PRN RC RECTAL PAIN 05/10/21 20:00 Milnacipran HCl (Savella) 25 mg DAILY PO 05/15/21 09:00 05/14/21 11:44 DC Risperidone (RisperDAL) 0.75 mg QHS PO 05/14/21 21:00 05/16/21 20:19 Milnacipran HCl (Savella) 25 mg DAILY PO 05/14/21 12:00 05/16/21 08:09 Cetirizine HCl (ZyrTEC) 10 mg DAILY PO 05/15/21 09:00 05/16/21 08:08 Pseudoephedrine HCl (Sudafed 12-Hour) 120 mg BID PO 05/15/21 09:00 05/16/21 20:20 Ropinirole HCl (Requip) 0.25 mg HS PO 05/15/21 21:00 05/16/21 20:20 I have reviewed the current psychotropics carefully including drug interactions. Risk benefit ratio favors no change other than as noted in my dictated progress note. Diagnosis: Problems: (1) Psychotic disorder (2) Anxiety disorder, unspecified (3) Major depressive disorder with psychotic features TESS SPAIN MD May 17, 2021 07:44
[2021-05-17] MEDS: NICOTINE 21MG PATCH. TD SCH (08:23)
[2021-05-17] MEDS: PRAMIPEXOLE 0.5 MG TABLET. PO SCH ×3 (08:23→20:14)
[2021-05-17] MEDS: FERROUS SULFATE 325 MG TABLET. PO SCH ×2 (08:24→17:10)
[2021-05-17] MEDS: VENLAFAXINE XR 37.5 MG CAP.ER.24H. PO SCH (08:24)
[2021-05-17] MEDS: ASCORBIC ACID 500 MG TABLET PO SCH ×2 (08:24→17:10)
[2021-05-17] MEDS: CETIRIZINE HCL 10 MG TABLET PO SCH (08:24)
--- NOTE | 2021-05-17 08:48 | PDOC ---
Exam Note: Tomas Note: This note is a late entry for 05/16/2021 covers elements not covered in my initial note. Subjective: The patient was reviewed on telehealth rounds on 05/16/2021 due to the COVID-19 pandemic. Discussed with Crissy MAY and reviewed the chart. The patient slept 4 hours previous night. She denies any auditory hallucinations. She has been quite social, states pain is 10/10. Per nursing staff somewhat somatically preoccupied. She received Tylenol, Albuterol nasal spray. She remains obsessive with GERD symptoms. Review of Systems: Ambulation impaired with walker. No CV, , pulmonary, eye, ENT system symptoms on review. Mental Status Exam: The patient is reasonably oriented. Speech is coherent. Abstraction fair. Computation impaired. Language function intact. Attention span fair. No active suicidal or homicidal ideation. Laboratory Data: Reviewed. Impression: Major depressive disorder with psychotic features. Psychotic disorder unspecified. Anxiety disorder unspecified. Plan: Maintain rest of the psychotropics unchanged. Assessment: Vital Signs/I&O: Vital Signs Date Time Temp Pulse Resp B/P (MAP) Pulse Ox O2 Delivery O2 Flow Rate FiO2 05/17/21 06:23 97.2 95 20 149/83 (105) 95 05/15/21 22:00 Room Air I & O 05/16/21 05/16/21 05/17/21 14:59 22:59 06:59 Intake Total 720 ml 720 ml Balance 720 ml 720 ml Current Medications: Meds: Current Medications Medications (Trade) Dose Ordered Sig/Noble Route PRN Reason Start Time Stop Time Status Last Admin Dose Admin Acetaminophen (Tylenol) 650 mg PRN Q6HRS PRN PO MILD PAIN / TEMP > 100.3'F 05/07/21 20:15 05/16/21 08:10 Multi-Ingredient Ointment (Analgesic Joffre) 1 corey PRN QID PRN TP MUSCLE PAIN 05/07/21 20:15 05/09/21 22:35 Al Hydroxide/Mg Hydroxide (Mylanta Plus Xs) 15 ml PRN AFTMEALHC PRN PO DYSPEPSIA 05/07/21 20:15 Magnesium Hydroxide (Milk Of Magnesia) 2,400 mg PRN QHS PRN PO CONSTIPATION 05/07/21 20:15 Nicotine (Nicoderm Cq 21mg Patch) 1 patch DAILY TD 05/08/21 09:00 05/17/21 08:23 Amlodipine Besylate (Norvasc) 10 mg HS PO 05/07/21 22:00 05/16/21 20:21 Guaifenesin (Robitussin Dm) 10 ml PRN Q4HRS PRN PO COUGH 05/07/21 23:00 Meloxicam (Mobic) 7.5 mg 1200,2100 PO 05/07/21 22:00 05/09/21 17:45 DC 05/09/21 12:33 Milnacipran HCl (Savella) 50 mg HS PO 05/07/21 23:00 05/08/21 12:09 DC 05/07/21 23:00 Sodium Chloride (Saline Mist Nasal) 1 corey PRN BID PRN NS CONGESTION 05/07/21 23:00 05/16/21 10:23 Tizanidine HCl (Zanaflex) 4 mg PRN Q8HRS PRN PO MUSCLE SPASMS 05/07/21 23:00 05/14/21 20:33 Alendronate Sodium (Fosamax) 70 mg QSU PO 05/10/21 16:00 05/10/21 15:39 Non-Formulary Medication (Menthol (Biofreeze)) 1 corey QID PRN TP MUSCLE PAIN 05/07/21 23:00 05/07/21 23:16 DC Milnacipran HCl (Savella) 100 mg DAILY PO 05/08/21 09:00 05/08/21 12:09 DC 05/08/21 08:53 Pantoprazole Sodium (Protonix) 40 mg QHS PO 05/07/21 23:00 05/16/21 20:19 Artificial Tears (Refresh Classic) 1 drop PRN QID PRN OU DRY EYE 05/07/21 23:15 05/14/21 20:32 Atorvastatin Calcium (Lipitor) 10 mg QHS PO 05/08/21 21:00 05/07/21 23:19 DC Aripiprazole (Abilify) 2 mg HS PO 05/07/21 22:00 05/09/21 18:34 DC 05/08/21 21:20 Sertraline HCl (Zoloft) 150 mg DAILY PO 05/08/21 09:00 05/08/21 12:09 DC 05/08/21 08:54 Trazodone HCl (Desyrel) 100 mg HS PO 05/07/21 23:00 05/16/21 20:19 Zolpidem Tartrate (Ambien) 5 mg PRN QHS PRN PO 2ND CHOICE INSOMNIA 05/07/21 23:00 05/14/21 20:33 Pramipexole Dihydrochloride (miraPEX) 1.5 mg TID PO 05/07/21 23:00 05/17/21 08:23 Albuterol Sulfate (Ventolin Hfa Inhaler) 1 puff PRN Q4HRS PRN INH SHORTNESS OF BREATH 05/07/21 23:00 05/16/21 10:23 Atorvastatin Calcium (Lipitor) 10 mg QHS PO 05/07/21 23:30 05/16/21 20:21 Duloxetine HCl (Cymbalta) 30 mg DAILY PO 05/09/21 09:00 05/08/21 21:40 DC Duloxetine HCl (Cymbalta) 60 mg DAILY PO 05/12/21 09:00 05/08/21 21:40 DC Venlafaxine HCl (Effexor Xr) 37.5 mg DAILY PO 05/09/21 09:00 05/17/21 08:24 Cyanocobalamin (Vitamin B-12) 1,000 mcg 1X ONCE IM 05/09/21 18:00 05/09/21 18:01 DC 05/09/21 18:17 Cyanocobalamin (Vitamin B-12) 1,000 mcg Q4WK IM 06/06/21 09:00 Ferrous Sulfate (Feosol) 325 mg BIDWMEALS PO 05/09/21 18:00 05/17/21 08:24 Ascorbic Acid (Vitamin C) 500 mg BIDWMEALS PO 05/09/21 18:00 05/17/21 08:24 Risperidone (RisperDAL) 0.5 mg QHS PO 05/09/21 21:00 05/14/21 10:54 DC 05/13/21 20:19 Mirtazapine (Remeron) 7.5 mg QHS PO 05/10/21 21:00 05/16/21 20:18 Trazodone HCl (Desyrel) 100 mg PRN QHS PRN PO 1ST CHOICE INSOMNIA 05/10/21 17:15 Oxycodone HCl (Roxicodone) 5 mg PRN Q8HRS PRN PO PAIN 05/10/21 20:00 05/16/21 20:22 Phenyleph/Shark Oil/Min Oil/Petrol (Preparation H) 1 corey PRN QID PRN RC RECTAL PAIN 05/10/21 20:00 Milnacipran HCl (Savella) 25 mg DAILY PO 05/15/21 09:00 05/14/21 11:44 DC Risperidone (RisperDAL) 0.75 mg QHS PO 05/14/21 21:00 05/16/21 20:19 Milnacipran HCl (Savella) 25 mg DAILY PO 05/14/21 12:00 05/16/21 08:09 Cetirizine HCl (ZyrTEC) 10 mg DAILY PO 05/15/21 09:00 05/17/21 08:24 Pseudoephedrine HCl (Sudafed 12-Hour) 120 mg BID PO 05/15/21 09:00 05/16/21 20:20 Ropinirole HCl (Requip) 0.25 mg HS PO 05/15/21 21:00 05/16/21 20:20 I have reviewed the current psychotropics carefully including drug interactions. Risk benefit ratio favors no change other than as noted in my dictated progress note. Diagnosis: Problems: (1) Psychotic disorder (2) Anxiety disorder, unspecified (3) Major depressive disorder with psychotic features TESS SPAIN MD May 17, 2021 08:48
[2021-05-17] MEDS: MILNACIPRAN 50 MG TABLET PO SCH (09:00)
[2021-05-17] MEDS: PSEUDOEPHEDRINE ER 120 MG TABLET.ER. PO SCH ×2 (09:00→20:12)
[2021-05-17] MEDS: tiZANidine 4 MG TABLET. PO PRN (09:20)
[2021-05-17] MEDS: SODIUM CHLORIDE 0.65% NASAL SPRAY 45ML BOTTLE. NS PRN (09:23)
--- NOTE | 2021-05-17 11:21 | NUR ---
Nursing note: Pt in dining room at time of AM med pass and assessment. She is pleasant, med compliant and cooperative. Pt c/o pain throughout her whole body and requested a muscle relaxer. PRN provided with good effect. Pt denies having any current hallucinations or delusions. She is very social with staff and peers. She is currently sitting in the day room. Will continue to monitor.
[2021-05-17] MEDS: oxyCODONE IR 5 MG TABLET PO PRN ×2 (14:35→22:25)
--- NOTE | 2021-05-17 15:02 | NUR ---
Nursing note: Pt c/o generalized pain rated 10/10 and requested PRN. PRN provided. As I was in her room preparing the medication, pt began explaining how she had opened a portal at home and "they" came out and started torturing me. She then went on to say "When I get my release date, I'm going to call the high sprinkler installer and the balbuena to arrange an exorcism. I'm not even going to step foot on my property until they're all out of their cars ready to go." Pt continued to talk about the procedure for an exorcism for the next 10 minutes and then talked about how she was supposed to start studying last to become a balbuena herself.
[2021-05-17 16:20] VITALS: BP 142/75
[2021-05-17] MEDS: ALENDRONATE SODIUM 35 MG TABLET PO SCH (17:07)
[2021-05-17] MEDS: traZODone 100 MG TABLET. PO SCH (20:13)
[2021-05-17] MEDS: ATORVASTATIN CALCIUM 10 MG TABLET. PO SCH (20:13)
[2021-05-17] MEDS: PANTOPRAZOLE 40 MG TABLET. PO SCH (20:14)
[2021-05-17] MEDS: amLODIPine BESYLATE 10 MG TABLET PO SCH (20:14)
[2021-05-17] MEDS: rOPINIRole 0.25 MG TABLET. PO SCH (20:14)
[2021-05-17] MEDS: risperiDONE 0.25 MG TABLET. PO SCH (20:15)
[2021-05-17] MEDS: MIRTAZAPINE 7.5 MG TABLET. PO SCH (20:15)
--- NOTE | 2021-05-17 21:27 | NUR ---
Patient located in her room for assessments and medication administration. She is in pleasant spirits. Interactive and appropriate with staff and peers. She has not voiced any somatic complaints so far this shift. Denies any hallucinations or delusions. Patient appears to be sleeping comfortably at present time. Will continue to monitor.
--- NOTE | 2021-05-17 21:57 | PDOC ---
Exam Note: Tomas Note: Please also refer to the separate dictated note~for this date of service dictated separately.~Patient seen individually. Discussed the patient with Nursing staff reviewed the chart.~Reviewed interim history and current functioning. Reviewed vital signs,~Labs/ Radiology~and current medications noted below. Continue current treatment with the changes noted in the dictated addendum note Assessment: Vital Signs/I&O: Vital Signs Date Time Temp Pulse Resp B/P (MAP) Pulse Ox O2 Delivery O2 Flow Rate FiO2 05/17/21 20:14 93 142/75 05/17/21 16:20 96.7 20 95 05/15/21 22:00 Room Air I & O 05/16/21 05/16/21 05/17/21 15:00 23:00 07:00 Intake Total 720 ml 720 ml Balance 720 ml 720 ml Current Medications: Meds: Current Medications Medications (Trade) Dose Ordered Sig/Noble Route PRN Reason Start Time Stop Time Status Last Admin Dose Admin Acetaminophen (Tylenol) 650 mg PRN Q6HRS PRN PO MILD PAIN / TEMP > 100.3'F 05/07/21 20:15 05/16/21 08:10 Multi-Ingredient Ointment (Analgesic [place]) 1 corey PRN QID PRN TP MUSCLE PAIN 05/07/21 20:15 05/09/21 22:35 Al Hydroxide/Mg Hydroxide (Mylanta Plus Xs) 15 ml PRN AFTMEALHC PRN PO DYSPEPSIA 05/07/21 20:15 Magnesium Hydroxide (Milk Of Magnesia) 2,400 mg PRN QHS PRN PO CONSTIPATION 05/07/21 20:15 Nicotine (Nicoderm Cq 21mg Patch) 1 patch DAILY TD 05/08/21 09:00 05/17/21 08:23 Amlodipine Besylate (Norvasc) 10 mg HS PO 05/07/21 22:00 05/17/21 20:14 Guaifenesin (Robitussin Dm) 10 ml PRN Q4HRS PRN PO COUGH 05/07/21 23:00 Meloxicam (Mobic) 7.5 mg 1200,2100 PO 05/07/21 22:00 05/09/21 17:45 DC 05/09/21 12:33 Milnacipran HCl (Savella) 50 mg HS PO 05/07/21 23:00 05/08/21 12:09 DC 05/07/21 23:00 Sodium Chloride (Saline Mist Nasal) 1 corey PRN BID PRN NS CONGESTION 05/07/21 23:00 05/17/21 09:23 Tizanidine HCl (Zanaflex) 4 mg PRN Q8HRS PRN PO MUSCLE SPASMS 05/07/21 23:00 05/17/21 09:20 Alendronate Sodium (Fosamax) 70 mg QSU PO 05/10/21 16:00 05/17/21 17:07 Non-Formulary Medication (Menthol (Biofreeze)) 1 corey QID PRN TP MUSCLE PAIN 05/07/21 23:00 05/07/21 23:16 DC Milnacipran HCl (Savella) 100 mg DAILY PO 05/08/21 09:00 05/08/21 12:09 DC 05/08/21 08:53 Pantoprazole Sodium (Protonix) 40 mg QHS PO 05/07/21 23:00 05/17/21 20:14 Artificial Tears (Refresh Classic) 1 drop PRN QID PRN OU DRY EYE 05/07/21 23:15 05/14/21 20:32 Atorvastatin Calcium (Lipitor) 10 mg QHS PO 05/08/21 21:00 05/07/21 23:19 DC Aripiprazole (Abilify) 2 mg HS PO 05/07/21 22:00 05/09/21 18:34 DC 05/08/21 21:20 Sertraline HCl (Zoloft) 150 mg DAILY PO 05/08/21 09:00 05/08/21 12:09 DC 05/08/21 08:54 Trazodone HCl (Desyrel) 100 mg HS PO 05/07/21 23:00 05/17/21 20:13 Zolpidem Tartrate (Ambien) 5 mg PRN QHS PRN PO 2ND CHOICE INSOMNIA 05/07/21 23:00 05/14/21 20:33 Pramipexole Dihydrochloride (miraPEX) 1.5 mg TID PO 05/07/21 23:00 05/17/21 20:14 Albuterol Sulfate (Ventolin Hfa Inhaler) 1 puff PRN Q4HRS PRN INH SHORTNESS OF BREATH 05/07/21 23:00 05/16/21 10:23 Atorvastatin Calcium (Lipitor) 10 mg QHS PO 05/07/21 23:30 05/17/21 20:13 Duloxetine HCl (Cymbalta) 30 mg DAILY PO 05/09/21 09:00 05/08/21 21:40 DC Duloxetine HCl (Cymbalta) 60 mg DAILY PO 05/12/21 09:00 05/08/21 21:40 DC Venlafaxine HCl (Effexor Xr) 37.5 mg DAILY PO 05/09/21 09:00 05/17/21 08:24 Cyanocobalamin (Vitamin B-12) 1,000 mcg 1X ONCE IM 05/09/21 18:00 05/09/21 18:01 DC 05/09/21 18:17 Cyanocobalamin (Vitamin B-12) 1,000 mcg Q4WK IM 06/06/21 09:00 Ferrous Sulfate (Feosol) 325 mg BIDWMEALS PO 05/09/21 18:00 05/17/21 17:10 Ascorbic Acid (Vitamin C) 500 mg BIDWMEALS PO 05/09/21 18:00 05/17/21 17:10 Risperidone (RisperDAL) 0.5 mg QHS PO 05/09/21 21:00 05/14/21 10:54 DC 05/13/21 20:19 Mirtazapine (Remeron) 7.5 mg QHS PO 05/10/21 21:00 05/17/21 20:15 Trazodone HCl (Desyrel) 100 mg PRN QHS PRN PO 1ST CHOICE INSOMNIA 05/10/21 17:15 Oxycodone HCl (Roxicodone) 5 mg PRN Q8HRS PRN PO PAIN 05/10/21 20:00 05/17/21 14:35 Phenyleph/Shark Oil/Min Oil/Petrol (Preparation H) 1 corey PRN QID PRN RC RECTAL PAIN 05/10/21 20:00 Milnacipran HCl (Savella) 25 mg DAILY PO 05/15/21 09:00 05/14/21 11:44 DC Risperidone (RisperDAL) 0.75 mg QHS PO 05/14/21 21:00 05/17/21 20:15 Milnacipran HCl (Savella) 25 mg DAILY PO 05/14/21 12:00 05/17/21 09:00 Cetirizine HCl (ZyrTEC) 10 mg DAILY PO 05/15/21 09:00 05/17/21 08:24 Pseudoephedrine HCl (Sudafed 12-Hour) 120 mg BID PO 05/15/21 09:00 05/17/21 20:12 Ropinirole HCl (Requip) 0.25 mg HS PO 05/15/21 21:00 05/17/21 20:14 I have reviewed the current psychotropics carefully including drug interactions. Risk benefit ratio favors no change other than as noted in my dictated progress note. Diagnosis: Problems: (1) Psychotic disorder (2) Anxiety disorder, unspecified (3) Major depressive disorder with psychotic features TESS SPAIN MD May 17, 2021 21:56
[2021-05-18] MEDS: ALBUTEROL SULFATE 8GM INHALER. INH PRN ×2 (01:06→13:40)
[2021-05-18 05:50] VITALS: BP 118/77
--- NOTE | 2021-05-18 06:34 | PDOC ---
Exam Note: Tomas Note: This note is a late entry for 05/17/2021 covers elements not covered in my initial note. Subjective: The patient was seen individually in the evening of 05/17/2021 with Isela MAY, discussed and reviewed the chart. The patient slept 5-1/4 hours previous night. She has been pleasant. I met with her in her room. She is compliant with her medications, social, no talk about portals. She is still convinced that when she gets home she is going to have an exorcism performed to get rid of the portals. Review of Systems: Ambulation impaired with walker. No CV, , pulmonary, eye, ENT system symptoms on review. Mental Status Exam: The patient is reasonably oriented. Speech is coherent. Abstraction fair. Computation impaired. Language function intact. Mood and affect improved, less anxious, still complains of pain in her back but better than before.- Laboratory Data: Reviewed. Impression: Major depressive disorder with psychotic features. Psychotic disorder unspecified. Anxiety disorder unspecified. Plan: Maintain rest of the psychotropics unchanged. Assessment: Vital Signs/I&O: Vital Signs Date Time Temp Pulse Resp B/P (MAP) Pulse Ox O2 Delivery O2 Flow Rate FiO2 05/18/21 05:50 97.8 94 18 118/77 (91) 95 05/15/21 22:00 Room Air I & O 05/17/21 05/17/21 05/18/21 15:00 23:00 07:00 Intake Total 1200 ml 720 ml Balance 1200 ml 720 ml Current Medications: Meds: Current Medications Medications (Trade) Dose Ordered Sig/Noble Route PRN Reason Start Time Stop Time Status Last Admin Dose Admin Acetaminophen (Tylenol) 650 mg PRN Q6HRS PRN PO MILD PAIN / TEMP > 100.3'F 05/07/21 20:15 05/16/21 08:10 Multi-Ingredient Ointment (Analgesic [place]) 1 corey PRN QID PRN TP MUSCLE PAIN 05/07/21 20:15 05/09/21 22:35 Al Hydroxide/Mg Hydroxide (Mylanta Plus Xs) 15 ml PRN AFTMEALHC PRN PO DYSPEPSIA 05/07/21 20:15 Magnesium Hydroxide (Milk Of Magnesia) 2,400 mg PRN QHS PRN PO CONSTIPATION 05/07/21 20:15 Nicotine (Nicoderm Cq 21mg Patch) 1 patch DAILY TD 05/08/21 09:00 05/17/21 08:23 Amlodipine Besylate (Norvasc) 10 mg HS PO 05/07/21 22:00 05/17/21 20:14 Guaifenesin (Robitussin Dm) 10 ml PRN Q4HRS PRN PO COUGH 05/07/21 23:00 Meloxicam (Mobic) 7.5 mg 1200,2100 PO 05/07/21 22:00 05/09/21 17:45 DC 05/09/21 12:33 Milnacipran HCl (Savella) 50 mg HS PO 05/07/21 23:00 05/08/21 12:09 DC 05/07/21 23:00 Sodium Chloride (Saline Mist Nasal) 1 corey PRN BID PRN NS CONGESTION 05/07/21 23:00 05/17/21 09:23 Tizanidine HCl (Zanaflex) 4 mg PRN Q8HRS PRN PO MUSCLE SPASMS 05/07/21 23:00 05/17/21 09:20 Alendronate Sodium (Fosamax) 70 mg QSU PO 05/10/21 16:00 05/17/21 17:07 Non-Formulary Medication (Menthol (Biofreeze)) 1 corey QID PRN TP MUSCLE PAIN 05/07/21 23:00 05/07/21 23:16 DC Milnacipran HCl (Savella) 100 mg DAILY PO 05/08/21 09:00 05/08/21 12:09 DC 05/08/21 08:53 Pantoprazole Sodium (Protonix) 40 mg QHS PO 05/07/21 23:00 05/17/21 20:14 Artificial Tears (Refresh Classic) 1 drop PRN QID PRN OU DRY EYE 05/07/21 23:15 05/14/21 20:32 Atorvastatin Calcium (Lipitor) 10 mg QHS PO 05/08/21 21:00 05/07/21 23:19 DC Aripiprazole (Abilify) 2 mg HS PO 05/07/21 22:00 05/09/21 18:34 DC 05/08/21 21:20 Sertraline HCl (Zoloft) 150 mg DAILY PO 05/08/21 09:00 05/08/21 12:09 DC 05/08/21 08:54 Trazodone HCl (Desyrel) 100 mg HS PO 05/07/21 23:00 05/17/21 20:13 Zolpidem Tartrate (Ambien) 5 mg PRN QHS PRN PO 2ND CHOICE INSOMNIA 05/07/21 23:00 05/14/21 20:33 Pramipexole Dihydrochloride (miraPEX) 1.5 mg TID PO 05/07/21 23:00 05/17/21 20:14 Albuterol Sulfate (Ventolin Hfa Inhaler) 1 puff PRN Q4HRS PRN INH SHORTNESS OF BREATH 05/07/21 23:00 05/18/21 01:06 Atorvastatin Calcium (Lipitor) 10 mg QHS PO 05/07/21 23:30 05/17/21 20:13 Duloxetine HCl (Cymbalta) 30 mg DAILY PO 05/09/21 09:00 05/08/21 21:40 DC Duloxetine HCl (Cymbalta) 60 mg DAILY PO 05/12/21 09:00 05/08/21 21:40 DC Venlafaxine HCl (Effexor Xr) 37.5 mg DAILY PO 05/09/21 09:00 05/17/21 08:24 Cyanocobalamin (Vitamin B-12) 1,000 mcg 1X ONCE IM 05/09/21 18:00 05/09/21 18:01 DC 05/09/21 18:17 Cyanocobalamin (Vitamin B-12) 1,000 mcg Q4WK IM 06/06/21 09:00 Ferrous Sulfate (Feosol) 325 mg BIDWMEALS PO 05/09/21 18:00 05/17/21 17:10 Ascorbic Acid (Vitamin C) 500 mg BIDWMEALS PO 05/09/21 18:00 05/17/21 17:10 Risperidone (RisperDAL) 0.5 mg QHS PO 05/09/21 21:00 05/14/21 10:54 DC 05/13/21 20:19 Mirtazapine (Remeron) 7.5 mg QHS PO 05/10/21 21:00 05/17/21 20:15 Trazodone HCl (Desyrel) 100 mg PRN QHS PRN PO 1ST CHOICE INSOMNIA 05/10/21 17:15 Oxycodone HCl (Roxicodone) 5 mg PRN Q8HRS PRN PO PAIN 05/10/21 20:00 05/17/21 22:25 Phenyleph/Shark Oil/Min Oil/Petrol (Preparation H) 1 corey PRN QID PRN RC RECTAL PAIN 05/10/21 20:00 Milnacipran HCl (Savella) 25 mg DAILY PO 05/15/21 09:00 05/14/21 11:44 DC Risperidone (RisperDAL) 0.75 mg QHS PO 05/14/21 21:00 05/17/21 20:15 Milnacipran HCl (Savella) 25 mg DAILY PO 05/14/21 12:00 05/17/21 09:00 Cetirizine HCl (ZyrTEC) 10 mg DAILY PO 05/15/21 09:00 05/17/21 08:24 Pseudoephedrine HCl (Sudafed 12-Hour) 120 mg BID PO 05/15/21 09:00 05/17/21 20:12 Ropinirole HCl (Requip) 0.25 mg HS PO 05/15/21 21:00 05/17/21 20:14 I have reviewed the current psychotropics carefully including drug interactions. Risk benefit ratio favors no change other than as noted in my dictated progress note. Diagnosis: Problems: (1) Psychotic disorder (2) Anxiety disorder, unspecified (3) Major depressive disorder with psychotic features TESS SPAIN MD May 18, 2021 06:34
[2021-05-18] MEDS: ASCORBIC ACID 500 MG TABLET PO SCH ×2 (08:11→17:09)
[2021-05-18] MEDS: FERROUS SULFATE 325 MG TABLET. PO SCH ×2 (08:11→17:09)
[2021-05-18] MEDS: VENLAFAXINE XR 37.5 MG CAP.ER.24H. PO SCH (08:11)
[2021-05-18] MEDS: CETIRIZINE HCL 10 MG TABLET PO SCH (08:11)
[2021-05-18] MEDS: PSEUDOEPHEDRINE ER 120 MG TABLET.ER. PO SCH ×2 (08:12→20:04)
[2021-05-18] MEDS: PRAMIPEXOLE 0.5 MG TABLET. PO SCH ×3 (08:12→20:03)
[2021-05-18] MEDS: MILNACIPRAN 50 MG TABLET PO SCH (08:12)
[2021-05-18] MEDS: NICOTINE 21MG PATCH. TD SCH (08:13)
[2021-05-18] MEDS: oxyCODONE IR 5 MG TABLET PO PRN ×2 (08:56→20:18)
--- NOTE | 2021-05-18 12:22 | NUR ---
Nursing note: Pt in her room at time of AM med pass and assessment. She is pleasant, med compliant and cooperative. She c/o generalized pain 9/10 and requested PRN. PRN administered with good effect. She is currently in the dining room for lunch. Will continue to monitor.
[2021-05-18] MEDS: tiZANidine 4 MG TABLET. PO PRN (13:44)
[2021-05-18] MEDS: POLYVINYL ALCOHOL/POVIDONE/PF OPHTH SOLUTION DROPERETTE. OU PRN (13:51)
[2021-05-18 15:44] VITALS: BP 116/72
--- NOTE | 2021-05-18 18:00 | NUR ---
Nursing note: Dr. Laureano notified of pt's A1c. He does not wish to monitor pt's blood glucose levels at this time.
[2021-05-18] MEDS: risperiDONE 0.25 MG TABLET. PO SCH (20:04)
[2021-05-18] MEDS: PANTOPRAZOLE 40 MG TABLET. PO SCH (20:05)
[2021-05-18] MEDS: rOPINIRole 0.25 MG TABLET. PO SCH (20:05)
[2021-05-18] MEDS: amLODIPine BESYLATE 10 MG TABLET PO SCH (20:05)
[2021-05-18] MEDS: traZODone 100 MG TABLET. PO SCH (20:05)
[2021-05-18] MEDS: ATORVASTATIN CALCIUM 10 MG TABLET. PO SCH (20:05)
--- NOTE | 2021-05-18 22:00 | NUR ---
Nursing Note Pt talks at length to the INFO SPECIALIST, that a peer on the unit is the leader of a cult group. The peer has other patients doing stuff for her and that they are constantly watching her every move. Pt highly paranoid and delusional this pm. Hyperverbal this pm. Using the malika to pass the time playing games.
--- NOTE | 2021-05-18 22:16 | PDOC ---
Exam Note: Tomas Note: Please also refer to the separate dictated note~for this date of service dictated separately.~Patient seen individually. Discussed the patient with Nursing staff reviewed the chart.~Reviewed interim history and current functioning. Reviewed vital signs,~Labs/ Radiology~and current medications noted below. Continue current treatment with the changes noted in the dictated addendum note Assessment: Vital Signs/I&O: Vital Signs Date Time Temp Pulse Resp B/P (MAP) Pulse Ox O2 Delivery O2 Flow Rate FiO2 05/18/21 20:48 95 05/18/21 20:05 92 116/72 05/18/21 15:44 97.2 16 05/15/21 22:00 Room Air I & O 05/17/21 05/17/21 05/18/21 15:00 23:00 07:00 Intake Total 1200 ml 720 ml Balance 1200 ml 720 ml Current Medications: Meds: Current Medications Medications (Trade) Dose Ordered Sig/Noble Route PRN Reason Start Time Stop Time Status Last Admin Dose Admin Acetaminophen (Tylenol) 650 mg PRN Q6HRS PRN PO MILD PAIN / TEMP > 100.3'F 05/07/21 20:15 05/16/21 08:10 Multi-Ingredient Ointment (Analgesic [place]) 1 croey PRN QID PRN TP MUSCLE PAIN 05/07/21 20:15 05/09/21 22:35 Al Hydroxide/Mg Hydroxide (Mylanta Plus Xs) 15 ml PRN AFTMEALHC PRN PO DYSPEPSIA 05/07/21 20:15 Magnesium Hydroxide (Milk Of Magnesia) 2,400 mg PRN QHS PRN PO CONSTIPATION 05/07/21 20:15 Nicotine (Nicoderm Cq 21mg Patch) 1 patch DAILY TD 05/08/21 09:00 05/18/21 08:13 Amlodipine Besylate (Norvasc) 10 mg HS PO 05/07/21 22:00 05/18/21 20:05 Guaifenesin (Robitussin Dm) 10 ml PRN Q4HRS PRN PO COUGH 05/07/21 23:00 Meloxicam (Mobic) 7.5 mg 1200,2100 PO 05/07/21 22:00 05/09/21 17:45 DC 05/09/21 12:33 Milnacipran HCl (Savella) 50 mg HS PO 05/07/21 23:00 05/08/21 12:09 DC 05/07/21 23:00 Sodium Chloride (Saline Mist Nasal) 1 corey PRN BID PRN NS CONGESTION 05/07/21 23:00 05/17/21 09:23 Tizanidine HCl (Zanaflex) 4 mg PRN Q8HRS PRN PO MUSCLE SPASMS 05/07/21 23:00 05/18/21 13:44 Alendronate Sodium (Fosamax) 70 mg QSU PO 05/10/21 16:00 05/17/21 17:07 Non-Formulary Medication (Menthol (Biofreeze)) 1 corey QID PRN TP MUSCLE PAIN 05/07/21 23:00 05/07/21 23:16 DC Milnacipran HCl (Savella) 100 mg DAILY PO 05/08/21 09:00 05/08/21 12:09 DC 05/08/21 08:53 Pantoprazole Sodium (Protonix) 40 mg QHS PO 05/07/21 23:00 05/18/21 20:05 Artificial Tears (Refresh Classic) 1 drop PRN QID PRN OU DRY EYE 05/07/21 23:15 05/18/21 13:51 Atorvastatin Calcium (Lipitor) 10 mg QHS PO 05/08/21 21:00 05/07/21 23:19 DC Aripiprazole (Abilify) 2 mg HS PO 05/07/21 22:00 05/09/21 18:34 DC 05/08/21 21:20 Sertraline HCl (Zoloft) 150 mg DAILY PO 05/08/21 09:00 05/08/21 12:09 DC 05/08/21 08:54 Trazodone HCl (Desyrel) 100 mg HS PO 05/07/21 23:00 05/18/21 20:05 Zolpidem Tartrate (Ambien) 5 mg PRN QHS PRN PO 2ND CHOICE INSOMNIA 05/07/21 23:00 05/14/21 20:33 Pramipexole Dihydrochloride (miraPEX) 1.5 mg TID PO 05/07/21 23:00 05/18/21 20:03 Albuterol Sulfate (Ventolin Hfa Inhaler) 1 puff PRN Q4HRS PRN INH SHORTNESS OF BREATH 05/07/21 23:00 05/18/21 13:40 Atorvastatin Calcium (Lipitor) 10 mg QHS PO 05/07/21 23:30 05/18/21 20:05 Duloxetine HCl (Cymbalta) 30 mg DAILY PO 05/09/21 09:00 05/08/21 21:40 DC Duloxetine HCl (Cymbalta) 60 mg DAILY PO 05/12/21 09:00 05/08/21 21:40 DC Venlafaxine HCl (Effexor Xr) 37.5 mg DAILY PO 05/09/21 09:00 05/18/21 08:11 Cyanocobalamin (Vitamin B-12) 1,000 mcg 1X ONCE IM 05/09/21 18:00 05/09/21 18:01 DC 05/09/21 18:17 Cyanocobalamin (Vitamin B-12) 1,000 mcg Q4WK IM 06/06/21 09:00 Ferrous Sulfate (Feosol) 325 mg BIDWMEALS PO 05/09/21 18:00 05/18/21 17:09 Ascorbic Acid (Vitamin C) 500 mg BIDWMEALS PO 05/09/21 18:00 05/18/21 17:09 Risperidone (RisperDAL) 0.5 mg QHS PO 05/09/21 21:00 05/14/21 10:54 DC 05/13/21 20:19 Mirtazapine (Remeron) 7.5 mg QHS PO 05/10/21 21:00 05/18/21 17:17 DC 05/17/21 20:15 Trazodone HCl (Desyrel) 100 mg PRN QHS PRN PO INSOMNIA, MAY REPEAT X1 05/10/21 17:15 Oxycodone HCl (Roxicodone) 5 mg PRN Q8HRS PRN PO PAIN 05/10/21 20:00 05/18/21 20:18 Phenyleph/Shark Oil/Min Oil/Petrol (Preparation H) 1 corey PRN QID PRN RC RECTAL PAIN 05/10/21 20:00 Milnacipran HCl (Savella) 25 mg DAILY PO 05/15/21 09:00 05/14/21 11:44 DC Risperidone (RisperDAL) 0.75 mg QHS PO 05/14/21 21:00 05/18/21 20:04 Milnacipran HCl (Savella) 25 mg DAILY PO 05/14/21 12:00 05/18/21 08:12 Cetirizine HCl (ZyrTEC) 10 mg DAILY PO 05/15/21 09:00 05/18/21 08:11 Pseudoephedrine HCl (Sudafed 12-Hour) 120 mg BID PO 05/15/21 09:00 05/18/21 20:04 Ropinirole HCl (Requip) 0.25 mg HS PO 05/15/21 21:00 05/18/21 20:05 I have reviewed the current psychotropics carefully including drug interactions. Risk benefit ratio favors no change other than as noted in my dictated progress note. Diagnosis: Problems: (1) Psychotic disorder (2) Anxiety disorder, unspecified (3) Major depressive disorder with psychotic features TESS SPAIN MD May 18, 2021 22:15
[2021-05-19 05:54] VITALS: BP 120/73
[2021-05-19] MEDS: NICOTINE 21MG PATCH. TD SCH (08:36)
[2021-05-19] MEDS: PRAMIPEXOLE 0.5 MG TABLET. PO SCH ×3 (08:37→20:33)
[2021-05-19] MEDS: MILNACIPRAN 50 MG TABLET PO SCH (08:37)
[2021-05-19] MEDS: ASCORBIC ACID 500 MG TABLET PO SCH ×2 (08:37→17:12)
[2021-05-19] MEDS: FERROUS SULFATE 325 MG TABLET. PO SCH ×2 (08:37→17:12)
[2021-05-19] MEDS: VENLAFAXINE XR 37.5 MG CAP.ER.24H. PO SCH (08:37)
[2021-05-19] MEDS: tiZANidine 4 MG TABLET. PO PRN ×2 (08:37→20:43)
[2021-05-19] MEDS: PSEUDOEPHEDRINE ER 120 MG TABLET.ER. PO SCH ×2 (08:38→20:35)
[2021-05-19] MEDS: CETIRIZINE HCL 10 MG TABLET PO SCH (08:38)
[2021-05-19] MEDS: ALBUTEROL SULFATE 8GM INHALER. INH PRN (08:39)
--- NOTE | 2021-05-19 09:10 | NUR ---
SW received a confirmation letter to approve pt for 05/19 with a discharge 05/20.
[2021-05-19] MEDS: POLYVINYL ALCOHOL/POVIDONE/PF OPHTH SOLUTION DROPERETTE. OU PRN (09:49)
[2021-05-19] MEDS: oxyCODONE IR 5 MG TABLET PO PRN ×2 (09:49→20:43)
--- NOTE | 2021-05-19 13:32 | NUR ---
Nursing note: Pt in dining room at time of AM med pass and assessment. She is pleasant, med compliant and cooperative. Pt c/o pain rated 9/10. PRN given per request. Pt also requested PRN eye drops and inhaler. PRNs were all given with good effect. She is currently sitting on the patio for group. Will continue to monitor.
[2021-05-19 15:30] VITALS: BP 145/89
--- NOTE | 2021-05-19 16:00 | NUR ---
SW met with pt to let her know that based off the insurance review SW completed today, SW is concerned that pt would not be here much longer. Pt reports that she is not willing to return to her apartment until the exorcism could be performed. SW discussed outpt services and pt refused to have services through [facility]. She prefers to have services through an agency in [place]. Pt continued to discuss discharge plans and was somewhat hyperverbal. Pt was hopeful to get her purse and make plans to pay her bills because she believed that she would be here longer than next week. SW explained that pt is doing well and continues to improve; therefore, there would be no reason for her to remain on [facility]. SW was given the number for her friend's house in which she will be staying and SW will plan to make all other arrangements for discharge.
[2021-05-19] MEDS: risperiDONE 0.25 MG TABLET. PO SCH (20:33)
[2021-05-19] MEDS: rOPINIRole 0.25 MG TABLET. PO SCH (20:34)
[2021-05-19] MEDS: ATORVASTATIN CALCIUM 10 MG TABLET. PO SCH (20:34)
[2021-05-19] MEDS: PANTOPRAZOLE 40 MG TABLET. PO SCH (20:35)
[2021-05-19] MEDS: traZODone 100 MG TABLET. PO SCH (20:35)
[2021-05-19] MEDS: amLODIPine BESYLATE 10 MG TABLET PO SCH (20:35)
[2021-05-19] MEDS: ZOLPIDEM 5 MG TABLET. PO PRN (20:42)
--- NOTE | 2021-05-19 21:10 | NUR ---
Patient was in her room seated on her bed with her legs crossed calmly playing a game on the tablet. Once nurse entered the room the patient began to complain of 10/10 pain in her back, neck, hips and shoulders. Patient stated that her spine had been "ripped out" while using a pitchfork to clean a barn and she had surgery to put it back. She denies delusions and hallucinations when asked and stated "the only time in my life I have ever had those was after my COVID vaccine". She continues to believe that there are demons in her house and stated she has a "high extrusion die repairer" coming on Tuesday to do an exorcism at her house. Patient is scheduled to discharge tomorrow, a friend is picking her up. She stated she will not stay at her house until "the demons are cast out". Patient upset because she states she "told Dr Reinoso to raise the Sevella to 50mg". The dose remains at 25mg and this nurse received no order to change the dose. 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 Patient requested PRN pain medication, muscle cramp medication and sleeping medication. When nurse told her that she had just taken her scheduled Trazodone she stated "well that crap doesn't work, I want my Ambien". PRN Roxicodone provided for pain, PRN xanaflex provided for muscle cramps and PRN Ambien provided for insomnia, all per order and by patient request.
--- NOTE | 2021-05-19 22:13 | PDOC ---
Exam Note: Tomas Note: Please also refer to the separate dictated note~for this date of service dictated separately.~Patient seen individually. Discussed the patient with Nursing staff reviewed the chart.~Reviewed interim history and current functioning. Reviewed vital signs,~Labs/ Radiology~and current medications noted below. Continue current treatment with the changes noted in the dictated addendum note Assessment: Vital Signs/I&O: Vital Signs Date Time Temp Pulse Resp B/P (MAP) Pulse Ox O2 Delivery O2 Flow Rate FiO2 05/19/21 20:35 97 145/89 05/19/21 15:30 97.3 16 95 05/15/21 22:00 Room Air I & O 05/18/21 05/18/21 05/19/21 15:00 23:00 07:00 Intake Total 1200 ml 840 ml Balance 1200 ml 840 ml Current Medications: Meds: Current Medications Medications (Trade) Dose Ordered Sig/Noble Route PRN Reason Start Time Stop Time Status Last Admin Dose Admin Acetaminophen (Tylenol) 650 mg PRN Q6HRS PRN PO MILD PAIN / TEMP > 100.3'F 05/07/21 20:15 05/16/21 08:10 Multi-Ingredient Ointment (Analgesic [place]) 1 corey PRN QID PRN TP MUSCLE PAIN 05/07/21 20:15 05/09/21 22:35 Al Hydroxide/Mg Hydroxide (Mylanta Plus Xs) 15 ml PRN AFTMEALHC PRN PO DYSPEPSIA 05/07/21 20:15 Magnesium Hydroxide (Milk Of Magnesia) 2,400 mg PRN QHS PRN PO CONSTIPATION 05/07/21 20:15 Nicotine (Nicoderm Cq 21mg Patch) 1 patch DAILY TD 05/08/21 09:00 05/19/21 08:36 Amlodipine Besylate (Norvasc) 10 mg HS PO 05/07/21 22:00 05/19/21 20:35 Guaifenesin (Robitussin Dm) 10 ml PRN Q4HRS PRN PO COUGH 05/07/21 23:00 Meloxicam (Mobic) 7.5 mg 1200,2100 PO 05/07/21 22:00 05/09/21 17:45 DC 05/09/21 12:33 Milnacipran HCl (Savella) 50 mg HS PO 05/07/21 23:00 05/08/21 12:09 DC 05/07/21 23:00 Sodium Chloride (Saline Mist Nasal) 1 corey PRN BID PRN NS CONGESTION 05/07/21 23:00 05/17/21 09:23 Tizanidine HCl (Zanaflex) 4 mg PRN Q8HRS PRN PO MUSCLE SPASMS 05/07/21 23:00 05/19/21 20:43 Alendronate Sodium (Fosamax) 70 mg QSU PO 05/10/21 16:00 05/17/21 17:07 Non-Formulary Medication (Menthol (Biofreeze)) 1 corey QID PRN TP MUSCLE PAIN 05/07/21 23:00 05/07/21 23:16 DC Milnacipran HCl (Savella) 100 mg DAILY PO 05/08/21 09:00 05/08/21 12:09 DC 05/08/21 08:53 Pantoprazole Sodium (Protonix) 40 mg QHS PO 05/07/21 23:00 05/19/21 20:35 Artificial Tears (Refresh Classic) 1 drop PRN QID PRN OU DRY EYE 05/07/21 23:15 05/19/21 09:49 Atorvastatin Calcium (Lipitor) 10 mg QHS PO 05/08/21 21:00 05/07/21 23:19 DC Aripiprazole (Abilify) 2 mg HS PO 05/07/21 22:00 05/09/21 18:34 DC 05/08/21 21:20 Sertraline HCl (Zoloft) 150 mg DAILY PO 05/08/21 09:00 05/08/21 12:09 DC 05/08/21 08:54 Trazodone HCl (Desyrel) 100 mg HS PO 05/07/21 23:00 05/19/21 20:35 Zolpidem Tartrate (Ambien) 5 mg PRN QHS PRN PO 2ND CHOICE INSOMNIA 05/07/21 23:00 05/19/21 20:42 Pramipexole Dihydrochloride (miraPEX) 1.5 mg TID PO 05/07/21 23:00 05/19/21 20:33 Albuterol Sulfate (Ventolin Hfa Inhaler) 1 puff PRN Q4HRS PRN INH SHORTNESS OF BREATH 05/07/21 23:00 05/19/21 08:39 Atorvastatin Calcium (Lipitor) 10 mg QHS PO 05/07/21 23:30 05/19/21 20:34 Duloxetine HCl (Cymbalta) 30 mg DAILY PO 05/09/21 09:00 05/08/21 21:40 DC Duloxetine HCl (Cymbalta) 60 mg DAILY PO 05/12/21 09:00 05/08/21 21:40 DC Venlafaxine HCl (Effexor Xr) 37.5 mg DAILY PO 05/09/21 09:00 05/19/21 08:37 Cyanocobalamin (Vitamin B-12) 1,000 mcg 1X ONCE IM 05/09/21 18:00 05/09/21 18:01 DC 05/09/21 18:17 Cyanocobalamin (Vitamin B-12) 1,000 mcg Q4WK IM 06/06/21 09:00 Ferrous Sulfate (Feosol) 325 mg BIDWMEALS PO 05/09/21 18:00 05/19/21 17:12 Ascorbic Acid (Vitamin C) 500 mg BIDWMEALS PO 05/09/21 18:00 05/19/21 17:12 Risperidone (RisperDAL) 0.5 mg QHS PO 05/09/21 21:00 05/14/21 10:54 DC 05/13/21 20:19 Mirtazapine (Remeron) 7.5 mg QHS PO 05/10/21 21:00 05/18/21 17:17 DC 05/17/21 20:15 Trazodone HCl (Desyrel) 100 mg PRN QHS PRN PO INSOMNIA, MAY REPEAT X1 05/10/21 17:15 Oxycodone HCl (Roxicodone) 5 mg PRN Q8HRS PRN PO PAIN 05/10/21 20:00 05/19/21 20:43 Phenyleph/Shark Oil/Min Oil/Petrol (Preparation H) 1 corey PRN QID PRN RC RECTAL PAIN 05/10/21 20:00 Milnacipran HCl (Savella) 25 mg DAILY PO 05/15/21 09:00 05/14/21 11:44 DC Risperidone (RisperDAL) 0.75 mg QHS PO 05/14/21 21:00 05/19/21 20:33 Milnacipran HCl (Savella) 25 mg DAILY PO 05/14/21 12:00 05/19/21 08:37 Cetirizine HCl (ZyrTEC) 10 mg DAILY PO 05/15/21 09:00 05/19/21 08:38 Pseudoephedrine HCl (Sudafed 12-Hour) 120 mg BID PO 05/15/21 09:00 05/19/21 20:35 Ropinirole HCl (Requip) 0.25 mg HS PO 05/15/21 21:00 05/19/21 20:34 I have reviewed the current psychotropics carefully including drug interactions. Risk benefit ratio favors no change other than as noted in my dictated progress note. Diagnosis: Problems: (1) Psychotic disorder (2) Anxiety disorder, unspecified (3) Major depressive disorder with psychotic features TESS SPAIN MD May 19, 2021 22:13
[2021-05-19] MEDS ORDERED: ACET325T9 PO (22:37)
[2021-05-19] MEDS ORDERED: ASCO500C PO (22:38)
[2021-05-19] MEDS ORDERED: ATOR10TA60 PO (22:38)
[2021-05-19] MEDS ORDERED: CETI10TA16 PO (22:39)
[2021-05-19] MEDS ORDERED: CYAN10002 IM (22:40)
[2021-05-19] MEDS ORDERED: FERR325T14 PO (22:41)
[2021-05-19] MEDS ORDERED: MAG30ORA2 PO (22:42)
[2021-05-19] MEDS ORDERED: MAGN24003 PO (22:43)
[2021-05-19] MEDS ORDERED: TROL86CR TP (22:44)
[2021-05-19] MEDS ORDERED: NICO1PAT21 TD (22:45)
[2021-05-19] MEDS ORDERED: MILN25TA PO (22:45)
[2021-05-19] MEDS ORDERED: PHEN26CR2 RC (22:49)
[2021-05-19] MEDS ORDERED: PSEU120T58 PO (22:50)
[2021-05-19] MEDS ORDERED: PRAM1.5T PO (22:50)
[2021-05-19] MEDS ORDERED: VENL37.5 PO (22:51)
[2021-05-19] MEDS ORDERED: OXYC5TAB88 PO (22:54)
[2021-05-19] MEDS ORDERED: ROPI0.254 PO (22:54)
[2021-05-19] MEDS ORDERED: RISP0.5T62 PO (22:55)
[2021-05-19] MEDS ORDERED: TRAZ-125 PO (22:55)
[2021-05-20 05:46] VITALS: BP 114/68
[2021-05-20] MEDS: FERROUS SULFATE 325 MG TABLET. PO SCH (08:09)
[2021-05-20] MEDS: ASCORBIC ACID 500 MG TABLET PO SCH (08:09)
[2021-05-20] MEDS: VENLAFAXINE XR 37.5 MG CAP.ER.24H. PO SCH (08:10)
[2021-05-20] MEDS: PRAMIPEXOLE 0.5 MG TABLET. PO SCH (08:10)
[2021-05-20] MEDS: CETIRIZINE HCL 10 MG TABLET PO SCH (08:10)
[2021-05-20] MEDS: MILNACIPRAN 50 MG TABLET PO SCH (08:10)
[2021-05-20] MEDS: PSEUDOEPHEDRINE ER 120 MG TABLET.ER. PO SCH (08:11)
[2021-05-20] MEDS: oxyCODONE IR 5 MG TABLET PO PRN (08:43)
[2021-05-20] MEDS: NICOTINE 21MG PATCH. TD SCH (09:00)
--- NOTE | 2021-05-20 09:05 | PDOC ---
Exam Note: Tomas Note: This note is a late entry for 05/18/2021 covers elements not covered in my initial note. Subjective: The patient was seen individually in the evening of 05/18/2021 with Isela MAY, discussed and reviewed the chart. The patient slept 7 hours previous night. The patients room has been moved because her prior roommate was talking about having auditory hallucinations with homicidal thoughts but no intent or plans. The patient has been irritable with one of the other demented patients on the unit. We received request from dietary that the patient is somewhat overweight and perhaps Remeron could be stopped. We will go ahead and do this and use trazodone extra dosage of 100 mg p.r.n. for insomnia. I met with her in her room. Review of Systems: Ambulation impaired with walker. No CV, , pulmonary, eye, ENT system symptoms on review. Mental Status Exam: The patient is reasonably oriented. I met with her in her room. She denies experiencing any portals and appears less psychotic but still wants to have clergy come to her house to sanitize her house when she returns. Speech is coherent. Abstraction fair. Computation impaired. Language function intact. Mood and affect improved. Laboratory Data: Reviewed. Impression: Major depressive disorder with psychotic features. Psychotic disorder unspecified. Anxiety disorder unspecified. Plan: Maintain rest of the psychotropics unchanged. Assessment: Vital Signs/I&O: Vital Signs Date Time Temp Pulse Resp B/P (MAP) Pulse Ox O2 Delivery O2 Flow Rate FiO2 05/20/21 08:43 18 Room Air 05/20/21 05:46 97.7 89 114/68 (83) 92 I & O 05/19/21 05/19/21 05/20/21 15:00 23:00 07:00 Intake Total 1740 ml 960 ml Balance 1740 ml 960 ml Current Medications: Meds: Current Medications Medications (Trade) Dose Ordered Sig/Noble Route PRN Reason Start Time Stop Time Status Last Admin Dose Admin Acetaminophen (Tylenol) 650 mg PRN Q6HRS PRN PO MILD PAIN / TEMP > 100.3'F 05/07/21 20:15 05/16/21 08:10 Multi-Ingredient Ointment (Analgesic [place]) 1 corey PRN QID PRN TP MUSCLE PAIN 05/07/21 20:15 05/09/21 22:35 Al Hydroxide/Mg Hydroxide (Mylanta Plus Xs) 15 ml PRN AFTMEALHC PRN PO DYSPEPSIA 05/07/21 20:15 Magnesium Hydroxide (Milk Of Magnesia) 2,400 mg PRN QHS PRN PO CONSTIPATION 05/07/21 20:15 Nicotine (Nicoderm Cq 21mg Patch) 1 patch DAILY TD 05/08/21 09:00 05/19/21 08:36 Amlodipine Besylate (Norvasc) 10 mg HS PO 05/07/21 22:00 05/19/21 20:35 Guaifenesin (Robitussin Dm) 10 ml PRN Q4HRS PRN PO COUGH 05/07/21 23:00 Meloxicam (Mobic) 7.5 mg 1200,2100 PO 05/07/21 22:00 05/09/21 17:45 DC 05/09/21 12:33 Milnacipran HCl (Savella) 50 mg HS PO 05/07/21 23:00 05/08/21 12:09 DC 05/07/21 23:00 Sodium Chloride (Saline Mist Nasal) 1 corey PRN BID PRN NS CONGESTION 05/07/21 23:00 05/17/21 09:23 Tizanidine HCl (Zanaflex) 4 mg PRN Q8HRS PRN PO MUSCLE SPASMS 05/07/21 23:00 05/19/21 20:43 Alendronate Sodium (Fosamax) 70 mg QSU PO 05/10/21 16:00 05/17/21 17:07 Non-Formulary Medication (Menthol (Biofreeze)) 1 corey QID PRN TP MUSCLE PAIN 05/07/21 23:00 05/07/21 23:16 DC Milnacipran HCl (Savella) 100 mg DAILY PO 05/08/21 09:00 05/08/21 12:09 DC 05/08/21 08:53 Pantoprazole Sodium (Protonix) 40 mg QHS PO 05/07/21 23:00 05/19/21 20:35 Artificial Tears (Refresh Classic) 1 drop PRN QID PRN OU DRY EYE 05/07/21 23:15 05/19/21 09:49 Atorvastatin Calcium (Lipitor) 10 mg QHS PO 05/08/21 21:00 05/07/21 23:19 DC Aripiprazole (Abilify) 2 mg HS PO 05/07/21 22:00 05/09/21 18:34 DC 05/08/21 21:20 Sertraline HCl (Zoloft) 150 mg DAILY PO 05/08/21 09:00 05/08/21 12:09 DC 05/08/21 08:54 Trazodone HCl (Desyrel) 100 mg HS PO 05/07/21 23:00 05/19/21 20:35 Zolpidem Tartrate (Ambien) 5 mg PRN QHS PRN PO 2ND CHOICE INSOMNIA 05/07/21 23:00 05/19/21 20:42 Pramipexole Dihydrochloride (miraPEX) 1.5 mg TID PO 05/07/21 23:00 05/20/21 08:10 Albuterol Sulfate (Ventolin Hfa Inhaler) 1 puff PRN Q4HRS PRN INH SHORTNESS OF BREATH 05/07/21 23:00 05/19/21 08:39 Atorvastatin Calcium (Lipitor) 10 mg QHS PO 05/07/21 23:30 05/19/21 20:34 Duloxetine HCl (Cymbalta) 30 mg DAILY PO 05/09/21 09:00 05/08/21 21:40 DC Duloxetine HCl (Cymbalta) 60 mg DAILY PO 05/12/21 09:00 05/08/21 21:40 DC Venlafaxine HCl (Effexor Xr) 37.5 mg DAILY PO 05/09/21 09:00 05/20/21 08:10 Cyanocobalamin (Vitamin B-12) 1,000 mcg 1X ONCE IM 05/09/21 18:00 05/09/21 18:01 DC 05/09/21 18:17 Cyanocobalamin (Vitamin B-12) 1,000 mcg Q4WK IM 06/06/21 09:00 Ferrous Sulfate (Feosol) 325 mg BIDWMEALS PO 05/09/21 18:00 05/20/21 08:09 Ascorbic Acid (Vitamin C) 500 mg BIDWMEALS PO 05/09/21 18:00 05/20/21 08:09 Risperidone (RisperDAL) 0.5 mg QHS PO 05/09/21 21:00 05/14/21 10:54 DC 05/13/21 20:19 Mirtazapine (Remeron) 7.5 mg QHS PO 05/10/21 21:00 05/18/21 17:17 DC 05/17/21 20:15 Trazodone HCl (Desyrel) 100 mg PRN QHS PRN PO INSOMNIA, MAY REPEAT X1 05/10/21 17:15 Oxycodone HCl (Roxicodone) 5 mg PRN Q8HRS PRN PO PAIN 05/10/21 20:00 05/20/21 08:43 Phenyleph/Shark Oil/Min Oil/Petrol (Preparation H) 1 corey PRN QID PRN RC RECTAL PAIN 05/10/21 20:00 Milnacipran HCl (Savella) 25 mg DAILY PO 05/15/21 09:00 05/14/21 11:44 DC Risperidone (RisperDAL) 0.75 mg QHS PO 05/14/21 21:00 05/19/21 20:33 Milnacipran HCl (Savella) 25 mg DAILY PO 05/14/21 12:00 05/20/21 08:10 Cetirizine HCl (ZyrTEC) 10 mg DAILY PO 05/15/21 09:00 05/20/21 08:10 Pseudoephedrine HCl (Sudafed 12-Hour) 120 mg BID PO 05/15/21 09:00 05/20/21 08:11 Ropinirole HCl (Requip) 0.25 mg HS PO 05/15/21 21:00 05/19/21 20:34 I have reviewed the current psychotropics carefully including drug interactions. Risk benefit ratio favors no change other than as noted in my dictated progress note. Diagnosis: Problems: (1) Psychotic disorder (2) Anxiety disorder, unspecified (3) Major depressive disorder with psychotic features TESS SPAIN MD May 20, 2021 09:05
--- NOTE | 2021-05-20 09:19 | NUR ---
[facility] Social Work Discharge Planning Form Patient Name DWAYNE HAMMONDS Admit Date: 07 May 2021 DISCHARGE PLAN Discharge Destination: Pt to discharge home with friend Sandie Hernandez Care Assessment: N/A Level II Assessment: N/A Transportation: [facility] to pick pt up around 1300. Special Instructions/Notes: Please fax discharge orders, discharge medication list and discharge summary to the fax number(s) listed below. DISCHARGE TO HOME: Address: [address] [place] [address]; [place], [place] Responsible [employer]: Pt is a self-sign Pharmacy: [facility] Contact Information: [address]; [place] [address] Psychiatrist/Mental Health Follow Up: [facility] Contact Information: [address] [place] [address]; [place] [address] Appointment: They will call with all appointment dates and times. Pt requested [facility] for services; however, they only provide Substance Abuse services. Primary Care Follow Up: Dr. Anabel Hart Contact Information: [address] [place] [address] Appointment: 06/04 @ [facility]
--- NOTE | 2021-05-20 09:27 | PDOC ---
Exam Note: Tomas Note: This note is a late entry for 05/19/2021 covers elements not covered in my initial note. Subjective: The patient was seen individually in the evening of 05/19/2021 with Isela MAY, discussed and reviewed the chart. The patient slept 5-3/4 hours previous night. No changes. I met with her in her room. She is excited about the potential discharge tomorrow. Review of Systems: Ambulation impaired with walker. No CV, , pulmonary, eye, ENT system symptoms on review. Mental Status Exam: The patient is reasonably oriented. Speech is coherent. Abstraction fair. Computation impaired. Language function intact. Mood and affect improved, less anxious. No suicidal or homicidal ideation. Laboratory Data: Reviewed. Impression: Major depressive disorder with psychotic features. Psychotic disorder unspecified. Anxiety disorder unspecified. Plan: Maintain rest of the psychotropics unchanged. Assessment: Vital Signs/I&O: Vital Signs Date Time Temp Pulse Resp B/P (MAP) Pulse Ox O2 Delivery O2 Flow Rate FiO2 05/20/21 08:43 18 Room Air 05/20/21 05:46 97.7 89 114/68 (83) 92 I & O 05/19/21 05/19/21 05/20/21 15:00 23:00 07:00 Intake Total 1740 ml 960 ml Balance 1740 ml 960 ml Current Medications: Meds: Current Medications Medications (Trade) Dose Ordered Sig/Noble Route PRN Reason Start Time Stop Time Status Last Admin Dose Admin Acetaminophen (Tylenol) 650 mg PRN Q6HRS PRN PO MILD PAIN / TEMP > 100.3'F 05/07/21 20:15 05/16/21 08:10 Multi-Ingredient Ointment (Analgesic [place]) 1 corey PRN QID PRN TP MUSCLE PAIN 05/07/21 20:15 05/09/21 22:35 Al Hydroxide/Mg Hydroxide (Mylanta Plus Xs) 15 ml PRN AFTMEALHC PRN PO DYSPEPSIA 05/07/21 20:15 Magnesium Hydroxide (Milk Of Magnesia) 2,400 mg PRN QHS PRN PO CONSTIPATION 05/07/21 20:15 Nicotine (Nicoderm Cq 21mg Patch) 1 patch DAILY TD 05/08/21 09:00 05/19/21 08:36 Amlodipine Besylate (Norvasc) 10 mg HS PO 05/07/21 22:00 05/19/21 20:35 Guaifenesin (Robitussin Dm) 10 ml PRN Q4HRS PRN PO COUGH 05/07/21 23:00 Meloxicam (Mobic) 7.5 mg 1200,2100 PO 05/07/21 22:00 05/09/21 17:45 DC 05/09/21 12:33 Milnacipran HCl (Savella) 50 mg HS PO 05/07/21 23:00 05/08/21 12:09 DC 05/07/21 23:00 Sodium Chloride (Saline Mist Nasal) 1 corey PRN BID PRN NS CONGESTION 05/07/21 23:00 05/17/21 09:23 Tizanidine HCl (Zanaflex) 4 mg PRN Q8HRS PRN PO MUSCLE SPASMS 05/07/21 23:00 05/19/21 20:43 Alendronate Sodium (Fosamax) 70 mg QSU PO 05/10/21 16:00 05/17/21 17:07 Non-Formulary Medication (Menthol (Biofreeze)) 1 corey QID PRN TP MUSCLE PAIN 05/07/21 23:00 05/07/21 23:16 DC Milnacipran HCl (Savella) 100 mg DAILY PO 05/08/21 09:00 05/08/21 12:09 DC 05/08/21 08:53 Pantoprazole Sodium (Protonix) 40 mg QHS PO 05/07/21 23:00 05/19/21 20:35 Artificial Tears (Refresh Classic) 1 drop PRN QID PRN OU DRY EYE 05/07/21 23:15 05/19/21 09:49 Atorvastatin Calcium (Lipitor) 10 mg QHS PO 05/08/21 21:00 05/07/21 23:19 DC Aripiprazole (Abilify) 2 mg HS PO 05/07/21 22:00 05/09/21 18:34 DC 05/08/21 21:20 Sertraline HCl (Zoloft) 150 mg DAILY PO 05/08/21 09:00 05/08/21 12:09 DC 05/08/21 08:54 Trazodone HCl (Desyrel) 100 mg HS PO 05/07/21 23:00 05/19/21 20:35 Zolpidem Tartrate (Ambien) 5 mg PRN QHS PRN PO 2ND CHOICE INSOMNIA 05/07/21 23:00 05/19/21 20:42 Pramipexole Dihydrochloride (miraPEX) 1.5 mg TID PO 05/07/21 23:00 05/20/21 08:10 Albuterol Sulfate (Ventolin Hfa Inhaler) 1 puff PRN Q4HRS PRN INH SHORTNESS OF BREATH 05/07/21 23:00 05/19/21 08:39 Atorvastatin Calcium (Lipitor) 10 mg QHS PO 05/07/21 23:30 05/19/21 20:34 Duloxetine HCl (Cymbalta) 30 mg DAILY PO 05/09/21 09:00 05/08/21 21:40 DC Duloxetine HCl (Cymbalta) 60 mg DAILY PO 05/12/21 09:00 05/08/21 21:40 DC Venlafaxine HCl (Effexor Xr) 37.5 mg DAILY PO 05/09/21 09:00 05/20/21 08:10 Cyanocobalamin (Vitamin B-12) 1,000 mcg 1X ONCE IM 05/09/21 18:00 05/09/21 18:01 DC 05/09/21 18:17 Cyanocobalamin (Vitamin B-12) 1,000 mcg Q4WK IM 06/06/21 09:00 Ferrous Sulfate (Feosol) 325 mg BIDWMEALS PO 05/09/21 18:00 05/20/21 08:09 Ascorbic Acid (Vitamin C) 500 mg BIDWMEALS PO 05/09/21 18:00 05/20/21 08:09 Risperidone (RisperDAL) 0.5 mg QHS PO 05/09/21 21:00 05/14/21 10:54 DC 05/13/21 20:19 Mirtazapine (Remeron) 7.5 mg QHS PO 05/10/21 21:00 05/18/21 17:17 DC 05/17/21 20:15 Trazodone HCl (Desyrel) 100 mg PRN QHS PRN PO INSOMNIA, MAY REPEAT X1 05/10/21 17:15 Oxycodone HCl (Roxicodone) 5 mg PRN Q8HRS PRN PO PAIN 05/10/21 20:00 05/20/21 08:43 Phenyleph/Shark Oil/Min Oil/Petrol (Preparation H) 1 corey PRN QID PRN RC RECTAL PAIN 05/10/21 20:00 Milnacipran HCl (Savella) 25 mg DAILY PO 05/15/21 09:00 05/14/21 11:44 DC Risperidone (RisperDAL) 0.75 mg QHS PO 05/14/21 21:00 05/19/21 20:33 Milnacipran HCl (Savella) 25 mg DAILY PO 05/14/21 12:00 05/20/21 08:10 Cetirizine HCl (ZyrTEC) 10 mg DAILY PO 05/15/21 09:00 05/20/21 08:10 Pseudoephedrine HCl (Sudafed 12-Hour) 120 mg BID PO 05/15/21 09:00 05/20/21 08:11 Ropinirole HCl (Requip) 0.25 mg HS PO 05/15/21 21:00 05/19/21 20:34 I have reviewed the current psychotropics carefully including drug interactions. Risk benefit ratio favors no change other than as noted in my dictated progress note. Diagnosis: Problems: (1) Psychotic disorder (2) Anxiety disorder, unspecified (3) Major depressive disorder with psychotic features TESS SPAIN MD May 20, 2021 09:27
--- NOTE | 2021-05-20 09:32 | NUR ---
Pt med compliant and cooperative. She has generalized 10/10 pain, PRN Oxycodone 5mg PO administered at her request. She is compliant with medications. She is aware that she is pending d/c. She is social and appropriate with her interactions. She does remain somatic and at times high maintenance. Plan of care continues, preparing for d/c.
--- NOTE | 2021-05-20 12:56 | NUR ---
Tobacco Discharge Note [facility] Tobacco Hotline called with patient prior to discharge, PATIENT REFUSED Tobacco cessation medication listed with current medications for discharge. YES Transition Record was faxed to follow-up provider with the following elements: Reason for admission, procedures, tests, principal diagnosis, pending studies, patient instructions, 16/05 contact information for unit, phone number to obtain pending test results, plan for follow-up care, physician follow-up, advanced directive information, and medication list with dose, duration and instructions. This information was included in the following documents: History and physical, lab results, study results, progress notes, social work planning form, DC instruction form, patient visit summary, and medication reconciliation form. Date & time record faxed: 05/20/21, [phone], [phone], & 0454 Record faxed to: [facility] (f [phone]), Dr Nii Hart (f [phone]), and [facility] (f [phone]) Record discussed with/ report given to: Pt d/c to home, d/c instructions discussed with pt. Records and medication list faxed to PCP, mental health services, and preferred pharmacy
[2021-05-20] MEDS ORDERED: OXYC5TAB88 PO (14:59)
--- NOTE | 2021-05-21 22:12 | PDOC ---
Exam Note: Tomas Note: Late enetry for date of discharge 05/20/2021. Please also refer to the separate dictated note~for this date of service dictated separately.~Patient seen individually. Discussed the patient with Nursing staff reviewed the chart.~Reviewed interim history and current functioning. Reviewed vital signs,~Labs/ Radiology~and current medications noted below. Continue current treatment with the changes noted in the dictated addendum note Assessment: Vital Signs/I&O: Vital Signs Date Time Temp Pulse Resp B/P (MAP) Pulse Ox O2 Delivery O2 Flow Rate FiO2 05/20/21 10:37 18 Room Air 05/20/21 05:46 97.7 89 114/68 (83) 92 I & O 05/20/21 05/20/21 05/21/21 15:00 23:00 07:00 Intake Total 840 ml Balance 840 ml Current Medications: Meds: Current Medications Medications (Trade) Dose Ordered Sig/Noble Route PRN Reason Start Time Stop Time Status Last Admin Dose Admin Acetaminophen (Tylenol) 650 mg PRN Q6HRS PRN PO MILD PAIN / TEMP > 100.3'F 05/07/21 20:15 05/20/21 12:58 DC 05/16/21 08:10 Multi-Ingredient Ointment (Analgesic [place]) 1 corey PRN QID PRN TP MUSCLE PAIN 05/07/21 20:15 05/20/21 12:58 DC 05/09/21 22:35 Al Hydroxide/Mg Hydroxide (Mylanta Plus Xs) 15 ml PRN AFTMEALHC PRN PO DYSPEPSIA 05/07/21 20:15 05/20/21 12:58 DC Magnesium Hydroxide (Milk Of Magnesia) 2,400 mg PRN QHS PRN PO CONSTIPATION 05/07/21 20:15 05/20/21 12:58 DC Nicotine (Nicoderm Cq 21mg Patch) 1 patch DAILY TD 05/08/21 09:00 05/20/21 12:58 DC 05/20/21 09:00 Amlodipine Besylate (Norvasc) 10 mg HS PO 05/07/21 22:00 05/20/21 12:59 DC 05/19/21 20:35 Guaifenesin (Robitussin Dm) 10 ml PRN Q4HRS PRN PO COUGH 05/07/21 23:00 05/20/21 12:59 DC Meloxicam (Mobic) 7.5 mg 1200,2100 PO 05/07/21 22:00 05/09/21 17:45 DC 05/09/21 12:33 Milnacipran HCl (Savella) 50 mg HS PO 05/07/21 23:00 05/08/21 12:09 DC 05/07/21 23:00 Sodium Chloride (Saline Mist Nasal) 1 corey PRN BID PRN NS CONGESTION 05/07/21 23:00 05/20/21 12:59 DC 05/17/21 09:23 Tizanidine HCl (Zanaflex) 4 mg PRN Q8HRS PRN PO MUSCLE SPASMS 05/07/21 23:00 05/20/21 12:59 DC 05/19/21 20:43 Alendronate Sodium (Fosamax) 70 mg QSU PO 05/10/21 16:00 05/20/21 12:59 DC 05/17/21 17:07 Non-Formulary Medication (Menthol (Biofreeze)) 1 corey QID PRN TP MUSCLE PAIN 05/07/21 23:00 05/07/21 23:16 DC Milnacipran HCl (Savella) 100 mg DAILY PO 05/08/21 09:00 05/08/21 12:09 DC 05/08/21 08:53 Pantoprazole Sodium (Protonix) 40 mg QHS PO 05/07/21 23:00 05/20/21 12:59 DC 05/19/21 20:35 Artificial Tears (Refresh Classic) 1 drop PRN QID PRN OU DRY EYE 05/07/21 23:15 05/20/21 12:59 DC 05/19/21 09:49 Atorvastatin Calcium (Lipitor) 10 mg QHS PO 05/08/21 21:00 05/07/21 23:19 DC Aripiprazole (Abilify) 2 mg HS PO 05/07/21 22:00 05/09/21 18:34 DC 05/08/21 21:20 Sertraline HCl (Zoloft) 150 mg DAILY PO 05/08/21 09:00 05/08/21 12:09 DC 05/08/21 08:54 Trazodone HCl (Desyrel) 100 mg HS PO 05/07/21 23:00 05/20/21 12:59 DC 05/19/21 20:35 Zolpidem Tartrate (Ambien) 5 mg PRN QHS PRN PO 2ND CHOICE INSOMNIA 05/07/21 23:00 05/20/21 12:59 DC 05/19/21 20:42 Pramipexole Dihydrochloride (miraPEX) 1.5 mg TID PO 05/07/21 23:00 05/20/21 12:59 DC 05/20/21 08:10 Albuterol Sulfate (Ventolin Hfa Inhaler) 1 puff PRN Q4HRS PRN INH SHORTNESS OF BREATH 05/07/21 23:00 05/20/21 12:59 DC 05/19/21 08:39 Atorvastatin Calcium (Lipitor) 10 mg QHS PO 05/07/21 23:30 05/20/21 12:59 DC 05/19/21 20:34 Duloxetine HCl (Cymbalta) 30 mg DAILY PO 05/09/21 09:00 05/08/21 21:40 DC Duloxetine HCl (Cymbalta) 60 mg DAILY PO 05/12/21 09:00 05/08/21 21:40 DC Venlafaxine HCl (Effexor Xr) 37.5 mg DAILY PO 05/09/21 09:00 05/20/21 12:59 DC 05/20/21 08:10 Cyanocobalamin (Vitamin B-12) 1,000 mcg 1X ONCE IM 05/09/21 18:00 05/09/21 18:01 DC 05/09/21 18:17 Cyanocobalamin (Vitamin B-12) 1,000 mcg Q4WK IM 06/06/21 09:00 05/20/21 12:59 DC Ferrous Sulfate (Feosol) 325 mg BIDWMEALS PO 05/09/21 18:00 05/20/21 12:59 DC 05/20/21 08:09 Ascorbic Acid (Vitamin C) 500 mg BIDWMEALS PO 05/09/21 18:00 05/20/21 12:59 DC 05/20/21 08:09 Risperidone (RisperDAL) 0.5 mg QHS PO 05/09/21 21:00 05/14/21 10:54 DC 05/13/21 20:19 Mirtazapine (Remeron) 7.5 mg QHS PO 05/10/21 21:00 05/18/21 17:17 DC 05/17/21 20:15 Trazodone HCl (Desyrel) 100 mg PRN QHS PRN PO INSOMNIA, MAY REPEAT X1 05/10/21 17:15 05/20/21 12:59 DC Oxycodone HCl (Roxicodone) 5 mg PRN Q8HRS PRN PO PAIN 05/10/21 20:00 05/20/21 12:59 DC 05/20/21 08:43 Phenyleph/Shark Oil/Min Oil/Petrol (Preparation H) 1 corey PRN QID PRN RC RECTAL PAIN 05/10/21 20:00 05/20/21 12:59 DC Milnacipran HCl (Savella) 25 mg DAILY PO 05/15/21 09:00 05/14/21 11:44 DC Risperidone (RisperDAL) 0.75 mg QHS PO 05/14/21 21:00 05/20/21 12:59 DC 05/19/21 20:33 Milnacipran HCl (Savella) 25 mg DAILY PO 05/14/21 12:00 05/20/21 12:59 DC 05/20/21 08:10 Cetirizine HCl (ZyrTEC) 10 mg DAILY PO 05/15/21 09:00 05/20/21 12:59 DC 05/20/21 08:10 Pseudoephedrine HCl (Sudafed 12-Hour) 120 mg BID PO 05/15/21 09:00 05/20/21 12:59 DC 05/20/21 08:11 Ropinirole HCl (Requip) 0.25 mg HS PO 05/15/21 21:00 05/20/21 12:59 DC 05/19/21 20:34 I have reviewed the current psychotropics carefully including drug interactions. Risk benefit ratio favors no change other than as noted in my dictated progress note. Diagnosis: Problems: (1) Psychotic disorder (2) Anxiety disorder, unspecified (3) Major depressive disorder with psychotic features TESS SPAIN MD May 21, 2021 22:12
[2021-06-06] MEDS ORDERED: CYANOCOBALAMIN (VITAMIN B-12) 1,000 MCG/ML VIAL. IM SCH (09:00)
== END 2021-05-20 12:57 | disposition home or self-care (01) | DRG 885 ==
LOC: GEROPSY 19:40
PROVIDERS: ADMIT Psychiatry & Neurology Psychiatry; ATTEND Psychiatry & Neurology Psychiatry
DX: F32.3 Major depressive disorder, single episode, severe with psychotic features (principal); F41.9 Anxiety disorder, unspecified; F29 Unspecified psychosis not due to a substance or known physiological condition; K21.9 Gastro-esophageal reflux disease without esophagitis; D50.9 Iron deficiency anemia, unspecified; D51.9 Vitamin B12 deficiency anemia, unspecified; E66.3 Overweight; E78.5 Hyperlipidemia, unspecified; F03.90 Unspecified dementia, unspecified severity, without behavioral disturbance, psychotic disturbance, mood disturbance, and anxiety; G25.81 Restless legs syndrome; I10 Essential (primary) hypertension; G47.00 Insomnia, unspecified; R10.13 Epigastric pain; M15.9 Polyosteoarthritis, unspecified; M81.0 Age-related osteoporosis without current pathological fracture; K59.00 Constipation, unspecified; Z60.2 Problems related to living alone; M54.9 Dorsalgia, unspecified; M79.7 Fibromyalgia; Z20.822 Contact with and (suspected) exposure to COVID-19; Z79.899 Other long term (current) drug therapy; Z68.35 Body mass index [BMI] 35.0-35.9, adult; Z88.8 Allergy status to other drugs, medicaments and biological substances
CPT/HCPCS: 36415; 70450; 80053; 80061; 81001; 82306; 82607; 83036; 83540; 83550; 83735; 84436; 84443; 84480; 85025; 85379; 86592; 99407; J3420; U0005; 97116; 97530